=== PATIENT | female | born 1995 | race Hispanic/Latino ===

== ENCOUNTER 2021-05-30 23:21 | Emergency (ER) | payer OTHER ==
--- OUTSIDE RECORDS SUMMARY | 2021-05-30 23:24 | XMS REPORT | Continuity of Care Document ---
:1995 Author Organization [facility] t Address [address] [place] [address] Care Team Providers Name Role Phone Burak Kent Primary Care Physician Fozia CONKLIN C Attending Clinician Payers Payer Name Policy Type Policy Effective Date Expiration Date Sour ce Number [facility] [id number] 2016 [facility] PLAN - 00:00:00 [place] [facility] [place] MANA[place] Branch [place] CHILDRENS [id number] /10/2015-PresentM edicaid Advance Directives Directive Decision Effective Termination Comments Source Date Date Healthcare Agents on N/A Univ ersity FileNameRelationshipHealthcare of [place] Agent Medical RelationshipCommunicationTay [facility] [phone] (Mobile) Problems Condition Condition Condition Status Onset Resolution Last Treating Co mments Source Name Details Category Date Date Treatment Clinician Date Lab test Lab test Disease Active Unive rs positive positive 8-25 ity of for for 00:00: [place] detection detection 00 Medi fabricio of of Branch COVID-19 COVID-19 virus virus UTI in UTI in Disease Active Overview: Univer s 3-24 Formattin i ty of 00:00: g of this [place] 00 note Medical might be Branch different from the original. Pending JAYY , still positive Abnormal Abnormal Disease Active Overview: Un komal maternal maternal 3-22 Formattin ity of glucose glucose 00:00: g of this [place] tolerance, tolerance, 00 note Me dical antepartum antepartum might be Branch different from the original. Failed 1hr gtt, passed 3hr gtt Obesity in Obesity in Disease Active U nivers -19 ity of 00:00: [place] [facility] Supervisio Supervisio Disease Active U nivers n of n of 19 [place] of high-risk [place] [facility] Multiparit Multiparit Disease Active U nivers y y 12-21 ity of 00:00: [place] [facility] Branch Hypothyroi Hypothyroi Disease Active U nivers dism in dism in 12-21 [place] [facility] [place] Breast Breast Disease Active Univers discharge discharge 02-09 ity of 00:00: [place] [facility] Noncomplia Noncomplia Disease Active U nivers nce nce 1-31 ity of w/medicati w/medicati 00:00: [facility] on on Medical treatment treatment Bran ch due to due to intermit intermit use of use of medication medication Allergies, Adverse Reactions, Alerts This patient has no known allergies or adverse reactions. Social History Social Habit Start Date Stop Date Quantity Comments Source ASSERTION 2020-11-28 University 00:00:00 [facility] Exposure to Yes University of SARS-CoV-2 [facility] (event) [facility] Tobacco use and 2021-05-28 2021-05-28 Never used Universit y of exposure 00:00:00 00:00:00 [facility] Alcohol intake 2021-05-28 2021-05-28 Current University 00:00:00 00:00:00 non-drinker of [facility] alcohol Branch (finding) Sex Ass[birth year] At [birth year] Universit y of 00:00:00 00:00:00 [facility] Smoking Status Start Date Stop Date Source Never smoker [facility] Branch Medications Ordered Filled Start Stop Current Ordering Indication Dosage Frequency Signature Comments Components Source Medication Medication Date Date Medication? Clinician (SIG) Name Name albuterol Yes [id number] 2{puff} Inhale 2 Univers 90 8-24 Puffs ity of mcg/actuati 00:00: every 4 [place] as on inhaler 00 (four) Medical hours as Branch needed for Wheezing or Shortness of Breath. benzonatate Yes [id number] 100mg Take 1 Univers 100 mg 8-24 capsule by ity of capsule 00:00: mouth 3 [place] 00 (three) Medical times Branch daily as needed for Cough. pantoprazol Yes [id number] 40mg Take 1 Univers e 7-28 tablet by ity of (PROTONIX) 00:00: mouth [place] 40 mg EC 00 daily. Medical tablet Branch levothyroxi Yes [id number] 250ug Take 2 Univers ne 125 mcg 6-23 tablets by ity of tablet 00:00: mouth [place] 00 every Medical morning. [facility] Immunizations Ordered Filled Immunization Date Status Comments [facility] e Immunization Name Name HPV9 2018-08-16 Completed University of 00:00:00 [facility] 2017-12-22 Completed University of 00:00:00 [facility] 2017-11-12 Completed University 00:00:00 [facility] Procedures This patient has no known procedures. Encounters Start End Encounter Admission Attending Care Care Encounter Source Date/Time Date/Time Type Type Clinicians Facility Department ID 2021-05-29 2021-05-29 Telephone [facility] [id number] Univers 00:00:00 00:00:00 Amelie Sumner CALL BOX WIRER [id number] ity [facility] [id number] [place] as MATERNAL [id number] Med ical & CHILD [address] [place] [address] Results This patient has no known results.
[2021-05-31 00:27] LABS: Urine Blood Negative (Negative); Urine Glucose Negative (Negative); Urine Protein 2+ (Negative); Urine Specific Gravity >=1.030 (1.005-1.030)
[2021-05-31 01:36] LABS: Urine Specific Gravity/Preg >1.030 (1.005-1.030)
--- NOTE | 2021-05-31 02:46 | ER ---
Nurse's Notes [facility] Name: Janette Cartagena Age: 25 yrs Sex: Female : 1995 Arrival Date: 05/30/2021 Time: 23:24 Bed 11 Private MD: Diagnosis: Pneumonia due to SARS-associated coronavirus;UTI/ Urinary tract infection, site not specified Presentation: 05/30 23:50 Chief complaint: Patient states: covid positive since last Thursday, reports feeling em short of breath, denies fever, also reports burning with urination that started today, also reports being 7 months , was cleared by L\T\D and told to come to the ED to get checked out. Coronavirus screen: Client denies travel out of the [place] in the last 14 days. Ebola Screen: Patient negative for fever greater than or equal to 101.5 degrees Fahrenheit, and additional compatible Ebola Virus Disease symptoms Patient denies exposure to infectious person. Patient denies travel to an Ebola-affected area in the 21 days before illness onset. No symptoms or risks identified at this time. Initial Sepsis Screen: Does the patient meet any 2 criteria? HR > 90 bpm. No. Patient's initial sepsis screen is negative. Does the patient have a suspected source of infection? No. Patient's initial sepsis screen is negative. Risk Assessment: Do you want to hurt yourself or someone else? Patient reports no desire to harm self or others. Onset of symptoms was May 30, 2021. 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 - Social history:: Smoking status: Patient denies any tobacco usage or history of. - Family history:: not pertinent. - Hospitalizations: : No recent hospitalization is reported. Screenin:50 Abuse screen: Denies threats or abuse. Nutritional screening: No deficits noted. em Tuberculosis screening: No symptoms or risk factors identified. Fall Risk None identified. Assessment: 23:50 General: Appears in no apparent distress. comfortable, Behavior is calm, cooperative, em appropriate for age. Pain: Denies pain. Neuro: Level of Consciousness is awake, alert, obeys commands, Oriented to person, place, time, situation. Cardiovascular: Capillary refill < 3 seconds Patient's skin is warm and dry. Rhythm is regular. Respiratory: Reports shortness of breath on exertion Airway is patent Respiratory effort is even, unlabored, Respiratory pattern is regular, symmetrical. Derm: Skin is intact, is healthy with good turgor, Skin is pink, warm \T\ dry. Musculoskeletal: Capillary refill < 3 seconds, Range of motion: intact in all extremities. 05/31 02:52 Reassessment: pt signed consent form for the regen-covid infusion. em 03:00 Reassessment: infusion started, instructed to verbalized any chest pain, shortness of em breath or any other symptoms. 03:21 Reassessment: Patient appears in no apparent distress at this time. Patient and/or em family updated on plan of care and expected duration. Pain level reassessed. Patient is alert, oriented x 3, equal unlabored respirations, skin warm/dry/pink. 03:29 Reassessment: pending completion and 1 hour observation before being discharged. em 03:30 Reassessment: Patient appears in no apparent distress at this time. Patient and/or em family updated on plan of care and expected duration. Pain level reassessed. Patient is alert, oriented x 3, equal unlabored respirations, skin warm/dry/pink. 04:05 Reassessment: Patient appears in no apparent distress at this time. Patient and/or em family updated on plan of care and expected duration. Pain level reassessed. Patient is alert, oriented x 3, equal unlabored respirations, skin warm/dry/pink. Vital Signs: 05/30 23:50 BP 110 / 66; Pulse 101; Resp 20; Temp 97.6; Pulse Ox 97% on R/A; Weight 83.91 kg; em Height 5 ft. 0 in. (152.40 cm); 05/31 01:14 Pulse Ox 94% on R/A; em 03:00 BP 103 / 64; Pulse 100; Resp 18; Temp 97.8; Pulse Ox 100% on R/A; em 03:30 BP 100 / 60; Pulse 98; Resp 16; Temp 97.3; Pulse Ox 97% on R/A; em 04:05 BP 102 / 68; Pulse 78; Resp 15; Pulse Ox 96% on R/A; em 05:00 BP 95 / 64; Pulse 98; Resp 16; Temp 97.8; Pulse Ox 99% on R/A; em 05/30 23:50 Body Mass Index 36.13 (83.91 kg, 152.40 cm) em 01:14 after ambulating about 50 yards em ED Course: 05/30 23:24 Patient arrived in ED. mr 23:50 Patient has correct armband on for positive identification. em 23:50 Maintain EMS IV. Dressing intact. Good blood return noted. Site clean \T\ dry. Gauge \T\ em site: 20 LAC. 23:52 Triage completed. em 23:52 Arm band placed on. em 05/31 00:55 Arturo Sweeney MD is Attending Physician. rn 01:02 XRAY Chest (1 view) In Process Unspecified. EDOK 02:50 Marcus Mosher RN is Primary Nurse. em 05:15 No provider procedures requiring assistance completed. IV discontinued, intact, em bleeding controlled, No redness/swelling at site. Pressure dressing applied. Administered Medications: 03:00 Drug: REGEN-COV Dose Pack 120 mg/mL-120 mg/mL (EUA) 600 mg Route: IV; Rate: calculated em rate; Site: left antecubital; 04:06 Follow up: Response: No adverse reaction; IV Status: Completed infusion; IV Intake: em 260ml Intake: 04:06 IV: 260ml; Total: 260ml. em Outcome: 02:46 Discharge ordered by . rn 05:15 Discharged to home via wheelchair. em 05:15 Condition: stable 05:15 Discharge instructions given to patient, Instructed on discharge instructions, follow up and referral plans. medication usage, Demonstrated understanding of instructions, follow-up care, medications, Prescriptions given X 1. 05:15 Patient left the ED. 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 0 in.; BMI: 36.1; em
--- NOTE | 2021-05-31 02:47 | EDPHYS ---
Physician Documentation [facility] Name: Janette Cartagena Age: 25 yrs Sex: Female : 1995 Arrival Date: 05/30/2021 Time: 23:24 Bed 11 Private MD: ED Physician Arturo Sweeney HPI: 05/31 02:36 This 25 yrs old Female presents to ER via Wheelchair with complaints of rn COVID+, Shortness Of Breath. 02:36 The patient has shortness of breath at rest, with light activity. Onset: The rn symptoms/episode began/occurred 8 day(s) ago. Duration: The symptoms are intermittent. The patient's shortness of breath is aggravated by exertion, light activity, is alleviated by rest. Associated signs and symptoms: Pertinent positives: non-productive cough, Pertinent negatives: chest pain, hemoptysis, loss of consciousness, vomiting. Severity of symptoms: At their worst the symptoms were mild in the emergency department the symptoms are unchanged. The patient has not experienced similar symptoms in the past. The patient has been recently seen by a physician:. Patient reports Covid positive, now day 8 of illness, 7 months , reports increased shortness of breath recently. Denies any chronic medical problems. States this is second ER visit for this infection, seen [facility] in [place] and told everything looked okay and discharged.. 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 - Social history:: Smoking status: Patient denies any tobacco usage or history of. - Family history:: not pertinent. - Hospitalizations: : No recent hospitalization is reported. 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 All other systems are negative. Exam: 02:36 Constitutional: This is a well developed, well nourished patient who is awake, alert, rn and in no acute distress. Head/Face: Normocephalic, atraumatic. Eyes: Periorbital areas with no swelling, redness, or edema. ENT: No stridor Cardiovascular: Regular rate and rhythm. No pulse deficits. Respiratory: Mild tachypnea, speaks full sentences. Abdomen/GI: Soft, non-tender Skin: Warm, dry MS/ Extremity: Pulses equal, no cyanosis. Neuro: Awake and alert, GCS 15 Vital Signs: 05/30 23:50 BP 110 / 66; Pulse 101; Resp 20; Temp 97.6; Pulse Ox 97% on R/A; Weight 83.91 kg; em Height 5 ft. 0 in. (152.40 cm); 05/31 01:14 Pulse Ox 94% on R/A; em 03:00 BP 103 / 64; Pulse 100; Resp 18; Temp 97.8; Pulse Ox 100% on R/A; em 03:30 BP 100 / 60; Pulse 98; Resp 16; Temp 97.3; Pulse Ox 97% on R/A; em 04:05 BP 102 / 68; Pulse 78; Resp 15; Pulse Ox 96% on R/A; em 05:00 BP 95 / 64; Pulse 98; Resp 16; Temp 97.8; Pulse Ox 99% on R/A; em 05/30 23:50 Body Mass Index 36.13 (83.91 kg, 152.40 cm) em 01:14 after ambulating about 50 yards em MDM: 00:55 Patient medically screened. rn 02:34 ED course: Long discussion regarding Covid with patient. Does not meet inpatient rn criteria at this point. Oxygen is 97% at rest and only dips to 94% with ambulation around the ER. Chest x-ray with mild pneumonia. Spoke at length with patient regarding Regeneron/monoclonal antibodies for treatment, she was also given a handout and called her mother to discuss. At the end of did patient decides to accept Regeneron/monoclonal antibodies for treatment. We will give infusion and discharge home with return precautions. .. 02:36 Differential diagnosis: pneumonia, Pneumothorax pulmonary edema, Covid. Data reviewed: rn vital signs, nurses notes. 02:45 Data interpreted: orthopedics nurse: rate is 97 beats/min, rhythm is normal sinus rhythm, rn regular, with no ectopy, Interpretation: normal rate, normal rhythm, Pulse oximetry: on room air is 97 %. Interpretation: normal. Test interpretation: by ED physician or midlevel provider: plain radiologic studies, Chest x-ray shows mild bilateral interstitial infiltrate consistent with Covid pneumonia. Counseling: I had a detailed discussion with the patient and/or guardian regarding: the historical points, exam findings, and any diagnostic results supporting the discharge/admit diagnosis, radiology results, the need for outpatient follow up, to return to the emergency department if symptoms worsen or persist or if there are any questions or concerns that arise at home. Response to treatment: the patient's symptoms have mildly improved after treatment, and as a result, I will discharge patient. Special discussion: I discussed with the patient/guardian in detail that at this point there is no indication for admission to the hospital. It is understood, however, that if the symptoms persist or worsen the patient needs to return immediately for re-evaluation. Based on the history and exam findings, there is no indication for further emergent testing or inpatient evaluation. I discussed with the patient/guardian the need to see the OB Gyne specialist for further evaluation of the symptoms. 05/31 00:27 Order name: Urine Dipstick-Ancillary; Complete Time: 00:51 EDMS 05/31 00:31 Order name: Urine --Ancillary (enter results); Complete Time: 01:45 tt3 05/30 23:56 Order name: XRAY Chest (1 view) rn Administered Medications: 03:00 Drug: REGEN-COV Dose Pack 120 mg/mL-120 mg/mL (EUA) 600 mg Route: IV; Rate: calculated em rate; Site: left antecubital; 04:06 Follow up: Response: No adverse reaction; IV Status: Completed infusion; IV Intake: em 260ml Disposition Summary: 05/31/21 02:46 Discharge Ordered Location: Home rn Problem: new rn Symptoms: have improved rn Condition: Stable rn Diagnosis - Pneumonia due to SARS-associated coronavirus rn - UTI/ Urinary tract infection, site not specified rn Followup: rn - With: Private Physician - When: As needed - Reason: Recheck today's complaints, Re-evaluation by your physician Discharge Instructions: - Discharge Summary Sheet rn - and Urinary Tract Infection rn - COVID-19 rn - COVID-19 Frequently Asked Questions rn - 10 Things You Can Do to Manage Your COVID-19 Symptoms at Home - [facility] rn Forms: - Medication Reconciliation Form rn - Thank You Letter rn - 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
[2021-05-31] MEDS ORDERED: NA CHLORIDE 0.9% 250 ML ONE (03:02)
[2021-05-31] MEDS ORDERED: CASIRIVIMAB/IMDEVIMAB 10 ML VIAL ONE (03:03)
[2021-05-31 05:40] VITALS: BP 95/64; TEMP 97.8; O2SAT 99
--- NOTE | 2021-05-31 07:07 | RAD REPORT ---
EXAM DESCRIPTION: RAD - Chest Single View - 05/31/2021 1:02 am CLINICAL HISTORY: COVID +;Cough COMPARISON: No comparisons FINDINGS: Mild to moderate patchy bilateral airspace disease. The heart size is within normal limits .No acute osseous abnormality. No significant pleural effusions or pneumothorax. IMPRESSION: Mild to moderate patchy bilateral airspace disease concerning for multifocal pneumonia i ncluding Covid-19.
== END 2021-05-31 05:15 | disposition home or self-care (01) ==
LOC: ER 23:21
DX: O98.512 Other viral diseases complicating pregnancy, second trimester (principal); U07.1 COVID-19; O99.512 Diseases of the respiratory system complicating pregnancy, second trimester; J12.82 Pneumonia due to coronavirus disease 2019; O23.42 Unspecified infection of urinary tract in pregnancy, second trimester; Z3A.28 28 weeks gestation of pregnancy
CPT/HCPCS: 96365; 81025; 81003; 71045; 99283; J7050

== ENCOUNTER 2022-08-19 08:47 | Emergency (ER) | payer OTHER ==
--- OUTSIDE RECORDS SUMMARY | 2022-08-19 08:52 | XMS REPORT | Continuity of Care Document ---
:1995 Author Organization [facility] t Address [address] [place] [address] Care Team Providers Name Role Phone Amelie Kent Primary Care Physician [phone] AMELIE MARCELO Attending Clinician Unavailable Amelie Kent Attending Clinician [phone] LISA AL Attending Clinician Unavailable Provider, Ang-Rmchp Temp Attending Clinician Unavailable Lisa Jose Attending Clinician SHELL CRANE Attending Clinician Unavailable Camilo Santana MD Attending Clinician Rodo Kerns Attending Clinician Risk, Ync-Hfnuh-Zx/High Attending Clinician Unavailable Barbara Camacho Attending Clinician BARBARA STRICKLAND Attending Clinician Unavailable Risk, Pea-Rmchp Provider/High Attending Clinician Unavailabl e Ultrasound, Ang-Mfm Attending Clinician Unavailable Adam Kramer MD Attending Clinician [phone] Lab, Ang-Rmchp Attending Clinician Unavailable Juan Yi MD Attending Clinician UMU KWONG Attending Clinician Unavailable Nichole Al DO Attending Clinician Doctor Unassigned, [place] Attending Clinician Unavailable Christine Carvalho RN Attending Clinician Unavailable 1, Pea-Mfm Us Room Attending Clinician Unavailable Varghese ARIZMENDI, Umu Attending Clinician Wilfred ARIZMENDI, Nasra Long Attending Clinician Lab, [facility] Attending Clinician Unavailable Reny MSN, Rachelle A Attending Clinician Vidal ARIZMENDI, Heriberto Cobb Attending Clinician Faculty, Arnulfo Hernandez [facility] Attending Clinician Unavailable Tate Crews MD Attending Clinician 2, Adc Lab Attending Clinician Unavailable SHELL CRANE Admitting Clinician Unavailable Payers Payer Name Policy Type Policy Number Effective Date Expiration Date [employer] [id number] 2016 HEALTH 00:00:00 Problems Condition Condition Condition Status Onset Resolution Last Treating Co mments Source Name Details Category Date Date Treatment Clinician Date Other Other Disease Active 2020-10 Univers general general 2-29 [place] and advice 00 De dical for [facility] contracept contracept william william management management Refuses Refuses Disease Active 2020-10 Univers tetanus, tetanus, 0-21 ity of diphtheria [place]htheria [place] , and , and 00 Medical acellular acellular Bran ch pertussis pertussis (Tdap) (Tdap) vaccinatio vaccinatio n n Hypothyroi Hypothyroi Disease Active U nivers dism in dism in 3-19 ity of 00:00: [facility] manish [address] [place] [address] Obesity Obesity Disease Active Univers (BMI (BMI 3-19 ity of 30-39.9) 30-39.9) 00:00: [address] Allergies, Adverse Reactions, Alerts This patient has no known allergies or adverse reactions. Social History Social Habit Start Date Stop Date Quantity Comments Source Exposure to Not sure [facility] SARS-CoV-2 [facility] (event) Branch Alcohol intake 2021-10-02 2021-10-02 Current University 00:00:00 00:00:00 non-drinker of [facility] alcohol [place] (finding) Tobacco use and 2017-03-30 2017-03-30 Never used Universit y of exposure 00:00:00 00:00:00 [facility] Sex Assigned At [birth year] Universit y of 00:00:00 00:00:00 [facility] Smoking Status Start Date Stop Date Source Never smoker [facility] Medications Ordered Filled Start Stop Current Ordering Indication Dosage Frequency Signature Comments Components Source Medication Medication Date Date Medication? Clinician (SIG) Name Name norman 2020-10 Yes [id number] Apply to [facility] 11-06 area(s) 2 ity of acetonide 00:00: (two) [place] 0.1 % 00 times Medical ointment daily. Branch 2020-10- No [id number] 1{tbl} Take 1 Univers [id number] 10-16 tablet by it y of fum-folic 00:00: 00:00 mouth [place] () 00 :00 daily. Medical 27 mg iron- Branch 1 mg Tab docusate 2020-10- No [id number] 240mg Take 1 Univers calcium 240 10-16 capsule by i ty of mg capsule 00:00: 00:00 mouth once [place] 00 :00 daily as Medical needed for Branch Constipati on. ferrous 2020-10- No [id number] 325mg Take 1 U nivers sulfate 325 10-16 tablet by it y of mg (65 mg 00:00: 00:00 [place] iron[place] 00 :00 (two) Medical tablet times Branch daily. ibuprofen 2020-10- No [id number] 600mg Take 1 Univers 600 mg 10-16 tablet by ity of tablet 00:00: 00:00 mouth [place] 00 :00 every 6 Medical (six) Branch hours as needed (Pain). Take with food or milk. pantoprazol 2020- No [id number] 40mg Take 1 Univers e 7-28 12-29 tablet by ity of (PROTONIX) 00:00: 00:00 mouth [place] 40 mg EC 00 :00 daily. Medical tablet Branch levothyroxi Yes [id number] 250ug Take 2 Univers ne 125 mcg 6-23 tablets by ity of tablet 00:00: mouth [place] 00 every Medical morning. Branch Immunizations Ordered Filled Immunization Date Status Comments Sour e Immunization Name Name HPV9 2018-08-16 Completed [facility] 00:00:[place] [address] 2017-12-22 Completed [facility] 00:00:00 [place] [address] 2017-11-12 Completed [facility] 00:00:00 [facility] Vital Signs Vital Name Observation Time Observation Value Comments Source Systolic blood 2021-10-02 16:40:00 108 mm[Hg] Univer sity of pressure [facility] Diastolic blood 2021-10-02 16:40:00 74 mm[Hg] Unive rsity of pressure [facility] Heart rate 2021-10-02 16:40:00 68 /min [facility] Body temperature 2021-10-02 16:40:00 36.17 Krissy [facility] Respiratory rate 2021-10-02 16:40:00 20 /min [facility] Body height 2021-10-02 16:40:00 152.4 cm [facility] Body weight 2021-10-02 16:40:00 87.363 kg [facility] BMI 2021-10-02 16:40:00 37.61 kg/m2 [facility] Procedures This patient has no known procedures. Encounters Start End Encounter Admission Attending Care Care Encounter Source Date/Time Date/Time Type Type Clinicians Facility Department ID 2021-08-[address] [facility] [id number] Univers 17:42:48 [facility] 2021-10-02 2021-10-02 Outpatient R FOZIA [facility] [id number] Univers 10:30:00 11:19:30 AMELIE gonzalez f [facility] 2021-10-02 2021-10-02 Office Fozia [facility] 1.2.033.112 [id number] Univers 10:30:00 11:19:30 Visit Amelie Sumner [facility].13.10 [facility] 4.2.7.2.686 Aramis as MATERNAL [id number] Med ical & CHILD [address] [place] [address] 2021-09-05 2021-09-05 Outpatient Rafael AL [facility] [id number] Univers 13:45:00 14:29:29 LISA hamilton [facility] 2021-09-05 2021-09-05 Routine Provider, [facility] .2.840.114 [id number] Univers 13:43:40 14:29:29 Lisa Al RIVER DRIVER 350.1.13.10 ity of Visit REGIONAL 4.2.7.2.686 Aramis as MATERNAL [id number] [facility] ical & CHILD [address] [place] [address] 2021-08-19 2021-08-19 Outpatient P [facility] [id number] Univers 11:30:00 11:30:00 ity of [facility] 2021-08-14 2021-08-[address] [facility] EMMA [id number] Univers 09:34:00 15:31:00 [facility] 2021-08-14 2021-08-16 [facility] LbPAYAL 1.2.840.114 [id number] Univers 09:34:00 15:31:00 Encounter Shell CUATE 350.1.13.10 ity of [facility] 4.2.7.2.686 Aramis as [id number] [facility] [address] 2021-08-14 2021-08-15 Anesthesia SantanaCamilo altman PAYAL 1.2.840.1 [id number] Univers 22:35:00 08:10:00 Event Rodo Samuels CUATE 350.1.13.10 ity of [facility] 4.2.7.2.686 Aramis as [id number] [facility] [address] 2021-08-08 2021-08-08 Routine Risk, Qux-Gzfsq-Di/High [facility] 1. 2.840.114 [id number] Univers 13:17:44 14:48:40 Barbara Strickland RIVER DRIVER 350.1.13.10 ity of Visit REGIONAL 4.2.7.2.686 Aramis as MATERNAL [phone] [facility] ical & CHILD [address] [place] [address] 2021-08-08 2021-08-08 Outpatient R MARCO [facility] [id number] Univers 13:15:00 14:48:40 BARBARA ity [facility] 2021-08-02 2021-08-02 Routine Risk, Pea-Rmchp Provider/High [facility] 1.2.840.114 [id number] Univers 13:14:26 13:58:22 Marco A Barbara L RIVER DRIVER 350.1.13.10 ity of Visit REGIONAL 4.2.7.2.686 Aramis as MATERNAL [id number] Med ical & CHILD [facility] 2021-08-02 2021-08-02 Outpatient R MARCO A [facility] [id number] Univers 13:00:00 13:58:22 BARBARA hamilton [facility] 2021-07-26 2021-07-26 [facility] 1.2.840.114 [id number] Univers 00:00:00 00:00:00 Lisa Avalos RIVER DRIVER 350.1.13.10 it y of REGIONAL 4.2.7.2.686 Aramis as MATERNAL [phone] [facility] [address] [place] [address] 2021-07-25 2021-07-25 [facility]ine [facility] 1.2.056.681 [id number] Univers 08:41:57 09:11:37 Lisa Avalos RIVER DRIVER 350.1.13.10 i ty of Visit REGIONAL 4.2.7.2.686 Aramis as MATERNAL [id number] [facility] & CHILD [address] [place] [address] 2021-07-25 2021-07-25 Outpatient R MIKAELA [facility] [id number] Univers 09:00:00 09:00:00 LISA [facility] 2021-07-23 2021-07-23 Specialty Food Products Supervisor Ultrasound, [facility] 1.2 .840.114 [id number] Univers 11:31:17 12:01:17 Visit Adam Kramer Soledad RIVER DRIVER 350.1. 13.10 ity of REGIONAL 4.2.7.2.686 Aramis as MATERNAL [id number] [facility] [address] [place] [address] 2021-07-23 2021-07-23 Outpatient P [facility] [id number] Univers 11:30:00 11:30:00 ity [facility] 2021-07-19 2021-07-19 Routine [facility] 1.2.632.024 [id number] Univers 10:54:44 11:09:44 Lisa Bailey RIVER DRIVER 350.1.13.10 i ty of Visit [facility] 4.2.7.2.686 Aramis as MATERNAL [id number] [facility] & [address] 2021-07-19 2021-07-19 Outpatient Rafael AL [facility] [id number] Univers 11:00:00 11:00:00 LISA hamilton [facility] 2021-07-10 2021-07-10 Outpatient R FOZIA [facility] [id number] Univers 10:00:00 10:00:00 AMELIE hamilton o [facility] 2021-06-26 2021-06-26 Outpatient R FOZIA [facility] [id number] Univers 15:45:00 15:45:00 AMELIE hamilton o [facility] 2021-06-26 2021-06-26 [facility] [id number] Univers 13:00:00 13:00:00 AMELIE alfonso o emmanuelle [facility] 2021-06-25 2021-06-25 Telephone [facility] 1.2.840.114 [id number] Univers 00:00:00 00:00:00 Amelie Sumner RIVER DRIVER 350.1.13.10 ity of [facility] 4.2.7.2.686 Aramis as MATERNAL [phone] [address] 2021-06-14 2021-06-14 Specialty Food Products Supervisor Lab, [facility] 1.2.840. 114 [id number] Univers 08:01:57 08:18:19 Visit Amelie Marcelo RIVER DRIVER 350.1.13. 10 ity of [facility] 4.2.7.2.686 Aramis as MATERNAL [id number] [facility] & [address] 2021-06-14 2021-06-14 Specialty Food Products Supervisor Lab, [facility] 1.2.840. 114 [id number] Univers 08:01:57 08:18:19 Visit Amelie Marcelo RIVER DRIVER 350.1.13. 10 ity of REGIONAL 4.2.7.2.686 Aramis as MATERNAL [id number] [facility] ical & CHILD [address] [place] [address] 2021-06-14 2021-06-14 Outpatient R [facility] [id number] Univers 08:00:00 08:00:00 ity of [facility] 2021-06-12 2021-06-12 Abstract Fozia [facility] 1.2.840.114 [id number] Univers 00:00:00 00:00:00 Amelie C RIVER DRIVER 350.1.13.10 ity of REGIONAL 4.2.7.2.686 Aramis as MATERNAL [id number] [facility] ical & CHILD [address] [place] [address] 2021-06-12 2021-06-12 Abstract Fozia [facility] 1.2.840.114 [id number] Univers 00:00:00 00:00:00 Amelie C RIVER DRIVER 350.1.13.10 ity of REGIONAL 4.2.7.2.686 Aramis as MATERNAL [id number] [facility] ical & CHILD [address] [place] [address] 2021-06-11 2021-06-11 Office [facility] 1.2.955.070 [id number] Univers 15:42:11 16:50:01 Visit Amelie C RIVER DRIVER 350.1.13.10 ity of REGIONAL 4.2.7.2.686 Aramis as MATERNAL [id number] [facility] & CHILD [address] [place] [address] 2021-06-11 2021-06-11 Office [facility] [id number] [id number] Univers 15:42:11 16:50:01 Visit Amelie C RIVER DRIVER 350.1.13.10 ity of REGIONAL 4.2.7.2.686 Aramis as MATERNAL [id number] [facility] ical & CHILD [address] [place] [address] 2021-06-11 2021-06-11 Outpatient R FOZIA [facility] [id number] Univers 16:00:00 16:00:00 AMELIE ity o f [facility] 2021-06-11 2021-06-11 Specialty Food Products Supervisor Ultrasound, [facility] 1.2 .840.114 [id number] Univers 15:15:20 15:40:12 Visit Juan Yi RIVER DRIVER 350.1.13.10 ity of [facility] 4.2.7.2.686 Aramis as MATERNAL [phone] [facility] [address] [place] [address] 2021-06-11 2021-06-11 Specialty Food Products Supervisor Ultrasound, [facility] 1.2 .840.114 [id number] Univers 15:15:20 15:40:12 Visit Juan Yi RIVER DRIVER 350.1.13.10 ity of REGIONAL 4.2.7.2.686 Aramis as MATERNAL [id number] [facility] & [address] 2021-05-29 2021-05-29 Outpatient P [facility] [id number] Univers 09:00:00 09:00:00 [facility] 2021-05-29 2021-05-29 Telephone [facility] 1.2.840.114 [id number] Univers 00:00:00 00:00:00 Amelie Sumner RIVER DRIVER 350.1.13.10 ity of [facility] 4.2.7.2.686 Aramis as MATERNAL [id number] [facility] & [address] 2021-05-29 2021-05-29 Telephone [facility] 1.2.840.114 [id number] Univers 00:00:00 00:00:00 Amelie Sumner RIVER DRIVER 350.1.13.10 ity of [facility] 4.2.7.2.686 Aramis as MATERNAL [id number] [facility] [address] [place] [address] 2021-05-28 2021-05-28 Outpatient R VARGHESE [facility] [id number] Univers 15:00:00 15:00:00 [facility] 2021-05-28 2021-05-28 Emergency [facility] 1.2.840.114 [id number] Univers 11:53:00 13:04:00 Nichole Juárez 350.1.13.10 ity [facility] 4.2.7.2.686 [place] [id number] [facility] [address] 2021-05-28 2021-05-28 Emergency Mikaela, [facility] 1.2.840.114 [id number] Univers 11:53:00 13:04:00 Nichole Juárez 350.1.13.10 ity of [place] 4.2.7.2.686 [facility] [id number] [facility] [address] 2021-05-28 2021-05-28 Orders Doctor PAYAL 1.2.840.114 [id number] Univers 00:00:00 00:00:00 Only Unassigned, CUATE 350.1.13.10 ity of [place] [facility] 4.2.7.2.686 Aramis as [phone] [address] 2021-05-28 2021-05-28 Nurse PAYAL Carvalho 1.2.840.114 [id number] Univers 00:00:00 00:00:00 Triage Christine Zach MCDUFFIEY 350.1.13.10 it y of HOSPITAL 4.2.7.2.686 Aramis as [id number] [facility] [address] 2021-05-28 2021-05-28 Orders Doctor PAYAL 1.2.840.114 [id number] Univers 00:00:00 00:00:00 Only Unassigned, CUATE 350.1.13.10 ity of [place] [facility] 4.2.7.2.686 Aramis as [id number] [address] 2021-05-28 2021-05-28 PAYAL Chavira 1.2.840.114 [id number] Univers 00:00:00 00:00:00 Triage Christine T CUATE 350.1.13.10 it y of HOSPITAL 4.2.7.2.686 Aramis as [id number] [facility] [address] 2021-05-22 2021-05-22 Telephone [facility], [facility] 1.2.667.029 [id number] Univers 00:00:00 00:00:00 Ang-Rmchp-N RIVER DRIVER 350.1.13.10 ity of p/High REGIONAL 4.2.7.2.686 Aramis as MATERNAL [id number] [facility] ical & CHILD [address] [place] [address] 2021-05-15 2021-05-15 Outpatient R [facility] [id number] Univers 08:00:00 08:00:00 ity of [facility] 2021-05-01 2021-05-01 Routine Risk, Aik-Yijyh-Dy/High [facility] 1. 2.840.114 [id number] Univers 10:00:17 11:16:35 StricklandBarbara Sainz RIVER DRIVER 350.1.13.10 ity of Visit REGIONAL 4.2.7.2.686 Aramis as MATERNAL [id number] Med ical & CHILD 107 [place] [facility] [place] 2021-05-01 2021-05-01 Routine Risk, Bpy-Schjs-On/High [facility] 1. 2.840.114 [id number] Univers 10:00:17 11:16:35 Barbara Strickland L RIVER DRIVER 350.1.13.10 ity of Visit REGIONAL 4.2.7.2.686 Aramis as MATERNAL [phone] [facility] [address] [place] [address] 2021-05-01 2021-05-01 Outpatient R [facility] [id number] Univers 10:00:00 10:00:00 ity of [facility] 2021-05-01 2021-05-01 Abstract Fozia, [facility] 1.2.840.114 [id number] Univers 00:00:00 00:00:00 Amelie Sumner RIVER DRIVER 350.1.13.10 ity of REGIONAL 4.2.7.2.686 Aramis as MATERNAL [phone] [facility] ical & CHILD [address] [place] [address] 2021-04-30 2021-04-30 Specialty Food Products Supervisor 1, [place]-Lasham Room [facility] 1.2. 840.114 [id number] Univers 09:16:39 10:11:40 Visit Juan Yi RIVER DRIVER 350.1.13.10 ity of REGIONAL 4.2.7.2.686 Aramis as MATERNAL [phone] [facility] ical & CHILD [address] [facility] 2021-04-30 2021-04-30 Outpatient P [facility] [id number] Univers 09:15:00 09:15:00 ity [facility] 2021-04-24 2021-04-24 Routine Akinsipe, [facility] 1.2.729.782 [id number] Univers 10:59:03 11:40:06 Amelie Sumner RIVER DRIVER 350.1.13.10 ity of Visit REGIONAL 4.2.7.2.686 Aramis as MATERNAL [id number] [facility] [address] [place] [address] 2021-04-24 2021-04-24 Outpatient R FOZIA, [facility] [id number] Univers 10:45:00 10:45:00 AMELIE ity o f [facility] 2021-04-17 2021-04-17 Outpatient R [facility] [id number] Univers 11:45:00 11:45:00 ity [facility] 2021-04-01 2021-04-01 Outpatient P [facility] [id number] Univers 13:00:00 13:00:00 [facility] 2021-03-28 2021-03-28 Routine Risk, Vxi-Wreme-Lr/High [facility] 1. 2.840.114 [id number] Univers 15:18:18 16:30:10 Barbara Strickland RIVER DRIVER 350.1.13.10 ity of Visit REGIONAL 4.2.7.2.686 Aramis as MATERNAL [id number] [facility] & CHILD [address] [place] [address] 2021-03-28 2021-03-28 Outpatient R [facility] [id number] Univers 15:30:00 15:30:00 ity [facility] 2021-03-28 2021-03-28 [facility] 1.2.840.114 [id number] Univers 00:00:00 00:00:00 Amelie Sumner RIVER DRIVER 350.1.13.10 ity of REGIONAL 4.2.7.2.686 Aramis as MATERNAL [id number] [facility] & CHILD [address] [place] [address] 2021-03-27 2021-03-27 Office Kwong, [facility] 1.2.840.114 [id number] Univers 10:55:16 12:03:38 Visit [facility] 350.1.13.10 i ty of [place] 4.2.7.2.686 [place] Profess[place] [phone] De dical nal [address] [place] [address] 2021-03-27 2021-03-27 Outpatient R VARGHESE [facility] [id number] Univers 11:00:00 11:00:00 [place] [facility] [facility] 2021-03-26 2021-03-26 Telephone [facility] 1.2.840.114 [id number] Univers 00:00:00 00:00:00 Amelie C RIVER DRIVER 350.1.13.10 ity of [facility] 4.2.7.2.686 Aramis as MATERNAL [id number] [facility] & [address] 2021-03-25 2021-03-25 Routine [facility] 1.2.241.562 [id number] Univers 15:43:37 16:22:05 Amelie C RIVER DRIVER 350.1.13.10 ity of Visit [facility] 4.2.7.2.686 Aramis as MATERNAL [id number] [facility] & CHILD [address] [place] [address] 2021-03-25 2021-03-25 [facility] [id number] Univers 15:45:00 15:45:00 AMELIE ity o [facility] 2021-03-20 2021-03-20 [facility] [id number] Univers 11:00:00 11:00:00 AMELIE ity o f [facility] 2021-02-25 2021-02-25 Telephone [facility] 1.2.840.114 [id number] Univers 00:00:00 00:00:00 Amelie C RIVER DRIVER 350.1.13.10 ity of [facility] 4.2.7.2.686 Aramis as MATERNAL [id number] [facility] & [address] 2021-02-20 2021-02-20 Routine [facility] 1.2.606.669 [id number] Univers 09:11:06 09:54:25 Amelie C RIVER DRIVER 350.1.13.10 ity of Visit REGIONAL 4.2.7.2.686 Aramis as MATERNAL [id number] [facility] & CHILD [address] [place] [address] 2021-02-20 2021-02-20 Outpatient R FOZIA [facility] [id number] Univers 09:00:00 09:00:00 AMELIE hamilton o f [facility] 2021-02-15 2021-02-15 Abstract Cataneida [facility] 1.2.840.114 [id number] Univers 00:00:00 00:00:00 Amelie Sumner RIVER DRIVER 350.1.13.10 ity of [facility] 4.2.7.2.686 Aramis as MATERNAL [id number] [facility] & CHILD [address] [place] [address] 2021-02-14 2021-02-14 Specialty Food Products Supervisor 1, Jasonkerwin Room [facility] 1.2. 840.114 [id number] Univers 13:28:11 14:13:11 Visit Nasra Hardin RIVER DRIVER 350.1.13.10 ity of [facility] 4.2.7.2.686 Aramis as MATERNAL [id number] [facility] ical & CHILD [address] [facility] 2021-02-14 2021-02-14 Specialty Food Products Supervisor [facility] 1.2.840. 114 [id number] Univers 13:28:49 14:03:13 Visit Rachelle Oglesby RIVER DRIVER 350.1.13.10 ity of REGIONAL 4.2.7.2.686 Aramis as MATERNAL [id number] [facility] ical & CHILD [facility] 2021-02-14 2021-02-14 Outpatient P [facility] [id number] Univers 13:30:00 13:30:00 ity of [facility] 2021-01-26 2021-01-26 Telephone Heriberto Drake 1.2.840.114 [id number] Univers 00:00:00 00:00:00 Jordyn CUELLO 350.1.13.10 i ty of [facility] 4.2.7.2.686 Aramis as [id number] [address] 2021-01-23 2021-01-23 Telephone [facility] 1.2.840.114 [id number] Univers 00:00:00 00:00:00 Amelie C RIVER DRIVER 350.1.13.10 ity of REGIONAL 4.2.7.2.686 Aramis as MATERNAL [id number] [facility] [address] [place] [address] 2021-01-22 2021-01-22 Routine [facility] 1.2.711.664 [id number] Univers 12:54:41 13:42:54 Amelie C RIVER DRIVER 350.1.13.10 ity of Visit REGIONAL 4.2.7.2.686 Aramis as MATERNAL [id number] [facility] & CHILD [address] [place] [address] 2021-01-22 2021-01-22 [facility] [id number] Univers 13:00:00 13:00:00 AMELIE ity o f [facility] 2021-01-21 2021-01-21 [employer] [facility], [facility] [id number] Univers 07:44:17 10:22:11 ne Visit Tate Crews RIVER DRIVER [id number] ity of REGIONAL [id number] Aramis as MATERNAL [id number] [facility] & [address] 2021-01-21 2021-01-21 Outpatient R [facility] [facility] [id number] Univers 10:00:00 10:00:00 ity of [facility] 2021-01-18 2021-01-18 Telephone [facility] [id number] Univers 00:00:00 00:00:00 Aemlie C RIVER DRIVER [id number] ity of REGIONAL [id number] Aramis [address]NAL [phone] [facility] & CHILD [address] [place] [address] 2021-01-11 2021-01-11 Abstract [facility] 1.2.840.114 [id number] Univers 00:00:00 00:00:00 Amelie C RIVER DRIVER [id number] ity of REGIONAL [id number] Aramis as MATERNAL [id number] [facility] CHILD [address] [place] [address] 2021-01-10 2021-01-10 Specialty Food Products Supervisor Davidson Reza [facility] 1.2. [id number] [facility] 15:34:19 16:01:23 Visit Nasra Hardin RIVER DRIVER [id number] ity of REGIONAL [id number] Aramis as MATERNAL [phone] [facility] ical & CHILD [address] [facility] 2021-01-10 2021-01-10 Outpatient P [facility] [id number] Univers 15:30:00 15:30:00 ity of [facility] 2020-12-28 2020-12-28 Specialty Food Products Supervisor Lab, [facility] 1.2.840. 114 [id number] Univers 07:59:57 08:19:00 Visit Amelie Marcelo RIVER DRIVER 350.1.13. 10 ity of [facility] [id number] Aramis as MATERNAL [id number] [facility] & CHILD [address] [place] [address] 2020-12-28 2020-12-28 Outpatient R FOZIA [facility] [id number] Univers 08:00:00 08:00:00 AMELIE hamilton o f [facility] 2020-12-26 2020-12-26 Telephone [facility] 1.2.840.114 [id number] Univers 00:00:00 00:00:00 Amelie Sumner RIVER DRIVER [id number] ity of REGIONAL [id number] Aramis [address] MAT[address]NAL [phone] 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 [id number] Univers 09:30:00 09:30:00 ity of [facility] 2020 2020 Office [facility] 1.2.840.114 [id number] Univers 13:14:36 13:56:24 Visit [facility] [id number] i ty of [id number] [phone] De dical nal [address] [facility] 2020 2020 Outpatient R VARGHESE [facility] [id number] Univers 11:30:00 11:30:00 [place] ity 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 [id number] Univers 08:00:00 08:00:00 ity of [facility] 2020-06-26 2020-06-26 Office [facility] 1.2.840.114 [id number] Univers 08:30:53 08:58:41 Visit [place] [place] 350.1.13.10 i ty of [place].2.[place] [phone] [address] 2020-06-26 2020-06-26 Outpatient R VARGHESE [facility] [id number] Univers 08:30:00 08:30:00 [facility] 2019-12-21 2019-12-21 Office [facility] 1.2.840.114 [id number] Univers 10:32:48 11:01:37 Visit [facility] [place] 350.1.13.10 i ty of [place] [id number] [phone] [address] 2019-12-21 2019-12-21 Outpatient R VARGHESE [facility] [id number] Univers 10:30:00 10:30:00 [place] ity [facility] 2019-12-21 2019-12-21 Orders Doctor MOE 1.2.840.114 [id number] Univers 00:00:00 00:00:00 Only Unassigned, CUATE [id number] ity of [place] [facility] [id number] Aramis as [phone] [address] 2019-12-21 2019-12-21 Letter Doctor PAYAL 1.2.840.114 [id number] Univers 00:00:00 00:00:00 (Out) Unassigned, CUATE 350.1.13.10 ity of [place] [facility] 4.2.7.2.686 Aramis as [phone] [facility] 044 Branch Results This patient has no known results.
--- NOTE | 2022-08-19 09:24 | RAD REPORT ---
EXAM DESCRIPTION: RAD - Chest Pa And Lat (2 Views) - 08/19/2022 9:13 am CLINICAL HISTORY: COUGH Chest pain. COMPARISON: Chest Single View dated 05/31/2021 FINDINGS: Moderate opacity is seen in the right lung base posteriorly likely representing a developi ng pneumonia. The lungs are otherwise clear. The heart is normal in size. No displaced fractures. IMPRESSION: Posterior right lung base pneumonia developing.
--- NOTE | 2022-08-19 10:05 | ER ---
Nurse's Notes [facility] Name: Janette Cartagena Age: 26 yrs Sex: Female : 1995 Arrival Date: 08/19/2022 Time: 08:52 Bed IW2 Private MD: Diagnosis: Other pneumonia, unspecified organism Presentation: 08/19 09:02 Chief complaint: Patient states: Cough x1 week, shortness of breath x2 days. jl7 Coronavirus screen: Vaccine status: Patient reports being unvaccinated. At this time, the client does not indicate any symptoms associated with coronavirus-19. Ebola Screen: No symptoms or risks identified at this time. Initial Sepsis Screen: Does the patient meet any 2 criteria? No. Patient's initial sepsis screen is negative. Does the patient have a suspected source of infection? No. Patient's initial sepsis screen is negative. Risk Assessment: Do you want to hurt yourself or someone else? Patient reports no desire to harm self or others. Onset of symptoms was August 09, 2022. 09:02 Method Of Arrival: Ambulatory jl7 09:02 Acuity: MARY 4 jl7 Triage Assessment: 09:04 General: Appears in no apparent distress. uncomfortable, Behavior is calm, cooperative, jl7 appropriate for age. Pain: Complains of pain in all over. Respiratory: Reports shortness of breath cough that is Onset: The symptoms/episode began/occurred gradually, the patient has mild shortness of breath. 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 - Social history:: Smoking status: Patient denies any tobacco usage or history of. Screenin:30 Abuse screen: Denies threats or abuse. Denies injuries from another. Nutritional jl7 screening: No deficits noted. Tuberculosis screening: No symptoms or risk factors identified. Fall Risk None identified. Assessment: 09:00 Reassessment: EVGENY [place] in triage assessing pt. jl7 Vital Signs: 09:02 BP 134 / 90; Pulse 98; Resp 19; Temp 98.1; Pulse Ox 96% ; Weight 86.18 kg; Height 5 ft. jl7 0 in. (152.40 cm); Pain 4/10; 10:21 BP 132 / 89; Pulse 95; Resp 15; Temp 97.7; Pulse Ox 97% ; jl7 09:02 Body Mass Index 37.11 (86.18 kg, 152.40 cm) jl7 ED Course: 08:52 Patient arrived in ED. rg4 08:56 Harjinder Aiken PA is PHCP. cp 08:56 Arturo Sweeney MD is Attending Physician. cp 09:00 Patient has correct armband on for positive identification. jl7 09:04 Triage completed. jl7 09:04 Arm band placed on right wrist. jl7 09:14 XRAY Chest Pa And Lat (2 Views) In Process Unspecified. EDMS 09:30 No provider procedures requiring assistance completed. Patient did not have IV access jl7 during this emergency room visit. 10:03 Keaton Hicks, JEANETTE is Primary Nurse. jl7 Administered Medications: No medications were administered Medication: 09:00 VIS not applicable for this client. jl7 Outcome: 10:04 Discharge ordered by . cp 10:21 Discharged to home ambulatory. jl7 10:21 Condition: stable 10:21 Discharge instructions given to patient, Instructed on discharge instructions, follow up and referral plans. medication usage, Demonstrated understanding of instructions, follow-up care, Prescriptions given X 5 10:22 Patient left the ED. jl7 Signatures: Dispatcher [employer] EDAR Harjinder Aiken PA PA cp Garcia, Rubi rg4 Keaton Hicks, RN RN jl7
--- NOTE | 2022-08-19 10:05 | EDPHYS ---
Physician Documentation [facility] Name: Janette Cartagena Age: 26 yrs Sex: Female : 1995 Arrival Date: 08/19/2022 Time: 08:52 Bed IW2 Private MD: ED Physician Arturo Sweeney HPI: 08/19 09:03 This 26 yrs old Female presents to ER via Unassigned with complaints of cp Shortness Of Breath, Cough. 09:03 The patient or guardian reports cough, with productive sputum. Onset: The cp symptoms/episode began/occurred 10 day(s) ago. Associated signs and symptoms: Pertinent positives: sore throat, shortness of breath, Pertinent negatives: chest pain, diarrhea, fever, vomiting. Severity of symptoms: in the emergency department the symptoms are unchanged despite home interventions. 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 - Social history:: Smoking status: Patient denies any tobacco usage or history of. ROS: 09:05 Eyes: Negative for injury, pain, redness, and discharge. cp 09:05 Constitutional: Negative for body aches, chills, fever, poor PO intake. 09:05 ENT: Positive for sore throat, Negative for drainage from ear(s), ear pain, difficulty swallowing, difficulty handling secretions. 09:05 Cardiovascular: Negative for chest pain. 09:05 Respiratory: Positive for cough, "sounds productive", shortness of breath, Negative for wheezing. 09:05 Abdomen/GI: Negative for abdominal pain, nausea, vomiting, and diarrhea. 09:05 Skin: Negative for rash. 09:05 Neuro: Negative for altered mental status, headache. 09:05 All other systems are negative. Exam: 09:07 Head/Face: Normocephalic, atraumatic. cp 09:07 Constitutional: The patient appears in no acute distress, alert, awake, non-toxic, well developed, well nourished. 09:07 Eyes: Periorbital structures: appear normal, Conjunctiva: normal, no exudate, no cp injection, Sclera: no appreciated abnormality, Lids and lashes: appear normal, bilaterally. 09:07 ENT: External ear(s): are unremarkable, Nose: is normal, Mouth: Lips: moist, Oral mucosa: pink and intact, moist, Posterior pharynx: Airway: no evidence of obstruction, patent. 09:07 Neck: ROM/movement: is normal, is supple, without pain, no range of motions cp limitations, no meningismus. 09:07 Chest/axilla: Inspection: normal. 09:07 Cardiovascular: Rate: normal, Rhythm: regular, Edema: is not appreciated. 09:07 Respiratory: the patient does not display signs of respiratory distress, Respirations: normal, no use of accessory muscles, no retractions, labored breathing, is not present, Breath sounds: bronchial sounds, that are mild, are heard diffusely, stridor, is not appreciated, + upper airway congestion. wheezing: is not appreciated. 09:07 Abdomen/GI: Exam negative for discomfort, distension, guarding, Inspection: abdomen appears normal. 09:07 Back: pain, is absent, ROM is normal. 09:07 Neuro: Orientation: to person, place \\T\\ time. Mentation: is normal, Motor: moves all fours, strength is normal, Sensation: is normal. Vital Signs: 09:02 BP 134 / 90; Pulse 98; Resp 19; Temp 98.1; Pulse Ox 96% ; Weight 86.18 kg; Height 5 ft. jl7 0 in. (152.40 cm); Pain 4/10; 10:21 BP 132 / 89; Pulse 95; Resp 15; Temp 97.7; Pulse Ox 97% ; jl7 09:02 Body Mass Index 37.11 (86.18 kg, 152.40 cm) jl7 MDM: 09:07 Patient medically screened. 10:04 Data reviewed: vital signs, nurses notes, lab test result(s), radiologic studies, plain cp films, and as a result, I will discharge patient. 10:04 Test interpretation: by ED physician or midlevel provider: plain radiologic studies. cp 08/19 09:01 Order name: Strep cp 08/19 10:03 Order name: Throat Culture EDMO 08/19 09:01 Order name: XRAY Chest Pa And Lat (2 Views); Complete Time: 09:33 cp 08/19 09:33 Interpretation: Report reviewed. cp Administered Medications: No medications were administered Disposition: 11:12 Co-signature as Attending Physician, Arturo Sweeney MD. rn Disposition Summary: 08/19/22 10:04 Discharge Ordered Location: Home cp Problem: new cp Symptoms: are unchanged cp Condition: Stable cp Diagnosis - Other pneumonia, unspecified organism cp Followup: cp - With: Private Physician - When: 2 - 3 days - Reason: Recheck today's complaints Discharge Instructions: - Discharge Summary Sheet cp - Community-Acquired Pneumonia, Adult cp Forms: - Medication Reconciliation Form cp - Thank You Letter cp - Antibiotic Education cp - Prescription Opioid Use cp Prescriptions: - Augmentin 875-125 mg Oral Tablet - take 1 tablet by ORAL route every 12 hours for 10 days; 20 tablet; Refills: 0, cp Product Selection Permitted - Ibuprofen 800 mg Oral Tablet - take 1 tablet by ORAL route every 8 hours As needed take with food; 30 tablet; cp Refills: 0, Product Selection Permitted - albuterol sulfate 90 mcg/actuation Inhalation HFA aerosol inhaler - inhale 1 puff by INHALATION route every 4-6 hours; 1 Inhaler; Refills: 0, cp Product Selection Permitted - Bromfed DM 2-30-10 mg/5 mL Oral syrup - take 10 milliliter by ORAL route every 6 hours; 180 milliliter; Refills: 0, cp Product Selection Permitted - Zithromax Z-Ethan 250 mg Oral Tablet - take 1 tablet by ORAL route as directed for 5 days Day 1 - take two (2) tablets cp one time. Day 2, 3, 4 , 5 take one (1) tablet once daily.; 6 tablet; Refills: 0, Product Selection Permitted Signatures: Dispatcher [employer] EDArturo Caballero MD MD rn Page, Corey, PA PA Keaton Sheikh RN RN jl7 Corrections: (The following items were deleted from the chart) 09:05 09:01 Urine Dipstick-Ancillary ordered. cp jl7 09:05 09:01 Urine Test ordered. cp trevin7
[2022-08-19 10:37] VITALS: BP 132/89; TEMP 97.7; O2SAT 97
== END 2022-08-19 10:22 | disposition home or self-care (01) ==
LOC: ER 08:47
DX: J18.8 Other pneumonia, unspecified organism (principal)
CPT/HCPCS: 71046; 87070; 87081; 99283

== ENCOUNTER 2023-03-18 21:09 | Observation (INO) | payer OTHER ==
--- OUTSIDE RECORDS SUMMARY | 2023-03-18 21:12 | XMS REPORT | Continuity of Care Document ---
:1995 Author Organization [facility] t Address [address] [facility] [place] [address] Care Team Providers Name Role Phone Amelie Kent Primary Care Physician [phone] EDITH BAEZA Attending Clinician Unavailable EDITH BAEZA Attending Clinician Unavailable Doctor Unassigned, [place] Attending Clinician Unavailable mUu Kwong MD Attending Clinician AMELIE MARCELO Attending Clinician Unavailable Amelie Kent Attending Clinician [phone] LISA [place] Attending Clinician Unavailable Provider, Ang-Rmchp Temp Attending Clinician Unavailable Lisa Jose Attending Clinician SHELL ASHER Attending Clinician Unavailable Camilo Santana MD Attending Clinician Rodo Kerns Attending Clinician Risk, Bts-Bvaor-Yi/High Attending Clinician Unavailable Barbara Camacho Attending Clinician BARBARA STRICKLAND Attending Clinician Unavailable Risk, Pea-Rmchp Provider/High Attending Clinician Unavailabl e Ultrasound, Ang-Mfm Attending Clinician Unavailable Adam Kramer MD Attending Clinician [phone] Lab, Ang-Rmchp Attending Clinician Unavailable Juan Yi MD Attending Clinician UMU KWONG Attending Clinician Unavailable Mikaela DO, Nichole J Attending Clinician Maia RN, Christine Serrano Attending Clinician Unavailable 1, Pea-m Us Room Attending Clinician Unavailable Wilfred ARIZMENDI, Nasra Long Attending Clinician Lab, [facility] Attending Clinician Unavailable Reny MSN, Rachelle Esvin Attending Clinician Vidal ARIZMENDI, Heriberto Cobb Attending Clinician Faculty, Arnulfo Hernandez [facility] Attending Clinician Unavailable Mars ARIZMENDI, Tate Hall Attending Clinician 2, Adc Lab Attending Clinician Unavailable SHELL ASHER Admitting Clinician Unavailable Payers Payer Name Policy Type Policy Number Effective Date Expiration Date Desire WEBSTER [id number] 2016 HEALTH 00:00:00 Problems Condition Condition Condition Status Onset Resolution Last Treating Co mments Source Name Details Category Date Date Treatment Clinician Date Other Other Disease Active 2020-10 Univers general general 2-29 it[place] of counseling [place] and advice and advice [address] [facility] contracept contracept william wililam management management Refuses Refuses Disease Active 2020-10 Univers tetanus, tetanus, 0-21 ity of diphtheria diphtheria 00:00[place] , and , and 00 Medical acellular acellular Bran ch pertussis pertussis (Tdap) (Tdap) vaccinatio vaccinatio n n Hypothyroi Hypothyroi Disease Active U nivers dism in dism in 3-19 ity of 00:00: [address] Obesity Obesity Disease Active Univers (BMI (BMI 3-19 ity of 30-39.9) 30-39.9) 00:00: [address] Allergies, Adverse Reactions, Alerts Allergy Allergy Status Severity Reaction(s) Onset Inactive Treating Comm ents Source Name Type Date Date Clinician NO KNOWN Drug Active [facility] ALLERGIE Class ity of [facility] Social History Social Habit Start Date Stop Date Quantity Comments Source Exposure to 2022-08-24 2022-09-03 Not sure [facility] SARS-CoV-2 00:00:00 14:02:00 [facility] (event) [place] Alcohol intake 2021-10-02 2021-10-02 Current University of 00:00:00 00:00:00 non-drinker of [facility] alcohol (finding) [place] Tobacco use and 2017-12-22 2017-12-22 Smokeless tobacco Un iversity of exposure 00:00:00 00:00:00 non-user [facility] Sex Assigned At [birth year] Universit y of 00:00:00 00:00:00 [facility] Smoking Status Start Date Stop Date Source Never smoked tobacco [facility] Medications Ordered Filled Start Stop Current Ordering Indication Dosage Frequency Signature Comments Components Source Medication Medication Date Date Medication? Clinician (SIG) Name Name levothyroxi 0 Yes [id number] 224ug Take 2 Univers ne 112 mcg 5-17 tablets by ity of tablet 00:00: mouth [place] 00 every Medical morning. [place] levothyroxi 2021-10 Yes [id number] 224ug Take 2 Univers ne 112 mcg 1-30 tablets by ity of tablet 00:00: mouth [place] 00 every Medical morning. [place] levothyroxi 2021-10 Yes [id number] 224ug Take 2 Univers ne 112 mcg 1-30 tablets by ity of tablet 00:00: mouth [place] 00 every Medical morning. [place] levothyroxi 2021-10 Yes [id number] 224ug Take 2 Univers ne 112 mcg 1-30 tablets by ity of tablet 00:00: mouth [place] 00 every Medical morning. [place] levothyroxi 2021-10- No [id number] 224ug Take 2 Univers ne 112 mcg 1-30 05-17 tablets by it y of tablet 00:00: 00:00 mouth [place] 00 :00 every Medical morning. [place] triamcinolo 2020-10 Yes [id number] Apply to Univers ne 2-02 area(s) 2 ity of acetonide 00:00: (two) [place] 0.1 % 00 times Medical ointment daily. Branch triamcinolo 2020-10 Yes [id number] Apply to Univers ne 2-02 area(s) 2 ity of acetonide 00:00: (two) [place] 0.1 % 00 times Medical ointment daily. [place] triamcinolo 2020-10 Yes [id number] Apply to Univers ne 2-02 area(s) 2 ity of acetonide 00:00: (two) [place] 0.1 % 00 times Medical ointment daily. [place] triamcinolo 2020-10 Yes [id number] Apply to [facility] 2-02 area(s) 2 ity of acetonide 00:00: (two) [place] 0.1 % 00 times Medical ointment daily. Branch triamcinolo 2020-10 Yes [id number] Apply to [facility] 2-02 area(s) 2 ity of acetonide 00:00: (two) [place] 0.1 % 00 times Medical ointment daily. Branch triamcinolo 2020-10 Yes [id number] Apply to [facility] 2-02 area(s) 2 ity of acetonide 00:00: (two) [place] 0.1 % 00 times Medical ointment daily. Branch triamcinolo 2020-10 Yes [id number] Apply to [facility] 2-02 area(s) 2 ity of acetonide 00:00: (two) [place] 0.1 % 00 times Medical ointment daily. Branch 2020-10- No [id number] 1{tbl} Take 1 Univers eto664-fkmg 10-16 tablet by it y of fum-folic 00:00: 00:00 mouth [place] () 00 :00 daily. Medical 27 mg iron- Branch 1 mg Tab docusate 2020-10- No [id number] 240mg Take 1 Univers calcium 240 10-16 capsule by i ty of mg capsule 00:00: 00:00 mouth once [place] 00 :00 daily as Medical needed for Branch Constipati on. ferrous 2020-10- No [id number] 325mg Take 1 U nivers sulfate 325 10-16 tablet by it y of mg (65 mg 00:00: 00:00 [place] iron) 00 :00 (two) Medical tablet times Branch daily. ibuprofen 2020-10- No [id number] 600mg Take 1 Univers 600 mg 10-16 tablet by ity of tablet 00:00: 00:00 mouth [place] 00 :00 every 6 Medical (six) Branch hours as needed (Pain). Take with food or milk. pantoprazol 2020- No [id number] 40mg Take 1 Univers e 7-28 -29 tablet by ity of (PROTONIX) 00:00: 00:00 mouth [place] 40 mg EC 00 :00 daily. Medical tablet Branch levothyroxi 2020-0 Yes [id number] 250ug Take 2 Univers ne 125 mcg 6-23 tablets by ity of tablet 00:00: mouth [place] 00 every Medical morning. Branch levothyroxi 2020-0 Yes [id number] 250ug Take 2 Univers ne 125 mcg 6-23 tablets by ity of tablet 00:00: mouth [place] 00 every Medical morning. Branch levothyroxi 2020-0 Yes [id number] 250ug Take 2 Univers ne 125 mcg 6-23 tablets by ity of tablet 00:00: mouth [place] 00 every Medical morning. Branch levothyroxi 2020-0 2- No [id number] 250ug Take 2 Univers ne 125 mcg 6-23 11-30 tablets by it y of tablet 00:00: 00:00 mouth [place] 00 :00 every Medical morning. Branch levothyroxi 2020-0 2021- No [id number] 250ug Take 2 Univers ne 125 mcg 6-23 11-30 tablets by it y of tablet 00:00: 00:00 mouth [place] 00 :00 every Medical morning. Branch Immunizations Ordered Filled Immunization Date Status Comments [facility] e Immunization Name Name HPV9 2018-08-16 Completed University of 00:00:00 [facility] HPV9 2018-08-16 Completed University of 00:00:00 [facility] HPV9 2018-08-16 Completed University of 00:00:00 [facility] HPV9 2018-08-16 Completed University of 00:00:00 [facility] HPV9 2018-08-16 Completed University of 00:00:00 [facility] HPV9 2018-08-16 Completed University of 00:00:00 [facility] HPV9 2018-08-16 Completed University of 00:00:00 [facility] HPV9 2017-12-22 Completed University of 00:00:00 [facility] HPV9 2017-12-22 Completed University of 00:00:00 [facility] HPV9 2017-12-22 Completed University of 00:00:00 [facility] HPV9 2017-12-22 Completed University of 00:00:00 [facility] HPV9 2017-12-22 Completed University of 00:00:00 [facility] HPV9 2017-12-22 Completed University of 00:00:00 [facility] HPV9 2017-12-22 Completed University of 00:00:00 [facility] HPV9 2017-11-12 Completed University of 00:00:00 [place] [facility] 2017-11-12 Completed University of 00:00:00 [facility] Branch [facility] 2017-11-12 Completed University of 00:00:00 [place] [facility] 2017-11-12 Completed University of 00:00:00 [place] [facility] HPV9 2017-11-12 Completed University of 00:00:00 [facility] Branch [facility] 2017-11-12 Completed University of 00:00:00 [facility] Branch [facility] 2017-11-12 Completed University of 00:00:00 [facility] Vital Signs Vital Name Observation Time Observation Value Comments Source Systolic blood 2022-09-03 20:05:00 101 mm[Hg] Univer sity of pressure [facility] Diastolic blood 2022-09-03 20:05:00 70 mm[Hg] Unive rsity of pressure [facility] Heart rate 2022-09-03 20:05:00 81 /min Universi [facility] Body weight 2022-09-03 20:05:00 88.043 kg [facility] BMI 2022-09-03 20:05:00 37.91 kg/m2 [facility] Oxygen saturation in 2022-09-03 20:05:00 97 /min [facility] Arterial blood by [facility] Pulse oximetry Branch Systolic blood 2021-10-02 16:40:00 108 mm[Hg] Univer sity of pressure [facility] Diastolic blood 2021-10-02 16:40:00 74 mm[Hg] Unive rsity of pressure [facility] Heart rate 2021-10-02 16:40:00 68 /min [facility] Body temperature 2021-10-02 16:40:00 36.17 [facility]y [facility] Respiratory rate 2021-10-02 16:40:00 20 /[facility] Body height 2021-10-02 16:40:00 152.4 cm [facility] Body weight 2021-10-02 16:40:00 87.363 kg Universi [facility] BMI 2021-10-02 16:40:00 37.61 kg/m2 [facility] Procedures Procedure Date / Time Performed Performing Clinician [facility] e ASSIGNMENT OF BENEFITS 2022-09-03 20:03:31 Doctor Unassigned, No [facility] Encounters Start End Encounter Admission Attending Care Care Encounter Source Date/Time Date/Time Type Type Clinicians Facility Department ID 2021-08-05 Emergency [facility] [id number] Univers 17:42:48 ity of [facility] 2023-02-18 2023-02-18 Refill FelishaEdith garcia [facility] 1.2.840.114 [id number] Univers 00:00:00 00:00:00 HEALTH 350.1.13.10 it y of [place] 4.2.7.2.686 Aramis as TEE?BLEA [id number] [address] MEDICAL OFFICE [facility] 2023-01-05 2023-01-05 Outpatient R FELISHAEDITH [facility] [id number] Univers 16:00:00 16:00:00 FLEISHAEDITH [facility] 2023-01-05 2023-01-05 Telephone Felisha [facility] 1..[id number] Univers 00:00:00 00:00:00 HEALTH 350.1.13.10 it [facility] 4.2.7.2.686 Aramis as TEE?BLEA [id number] [address] OFFICE [facility] 2022-09-03 2022-09-03 Outpatient R FELISHAEDITH [facility] [id number] Univers 14:00:00 14:36:53 FELISHAEDITH [facility] 2022-09-03 2022-09-03 Office Felisha [facility] 1.2.840.114 [id number] Univers 14:00:00 14:36:53 Visit HEALTH 350.1.13.10 it y of [place] 4.2.7.2.686 Aramis as TEE?BLEA [id number] [address] MEDICAL OFFICE BUILDING 2022-09-03 2022-09-03 Orders Doctor MOE 1.2.840.114 [id number] Univers 00:00:00 00:00:00 Only Unassigned, CUATE 350.1.13.10 ity of [place] [facility] 4.2.7.2.686 Aramis as [phone] [address] 2022-08-20 2022-08-20 [facility] [id number] Univers 00:00:00 00:00:00 Critical access hospital 350.1.13.10 it y [facility] 4.2.7.2.686 Aramis as TEE?BLEA [id number] [address] MEDICAL OFFICE BUILDING 2021-10-02 2021-10-02 Outpatient R FOZIA [facility] [id number] Univers 10:30:00 11:19:30 AMELIE hamilton o f [facility] 2021-10-02 2021-10-[address] [facility] [id number] Univers 10:30:00 11:19:30 Visit Amelie Sumner RADIO JOURNALIST 350.1.13.10 ity of REGIONAL 4.2.7.2.686 Aramis as MATERNAL [id number] Med ical & CHILD [address] [place] [address] 2021-09-05 2021-09-05 Outpatient R MIKAELA [facility] [id number] Univers 13:45:00 14:29:29 [facility] 2021-09-05 2021-09-05 Routine Provider, Albaro Sow [facility] 1 .2.840.114 [id number] Univers 13:43:40 14:29:29 Lisa Al RADIO JOURNALIST 350.1.13.10 ity of Visit REGIONAL 4.2.7.2.686 Aramis as MATERNAL [id number] [facility] & CHILD [address] [place] [address] 2021-08-19 2021-08-19 Outpatient P [facility] [id number] Univers 11:30:00 11:30:00 ity [facility] 2021-08-14 2021-08-16 Inpatient P ROYCE [facility] EMMA [id number] Univers 09:34:00 15:31:00 SHELL ity [facility] 2021-08-14 2021-08-16 [facility] PAYAL Asher 1.2.840.114 [id number] Univers 09:34:00 15:31:00 Encounter Shell CUELLO 350.1.13.10 ity of HOSPITAL 4.2.7.2.686 Aramis as [id number] [facility] [address] Branch 2021-08-14 2021-08-15 Anesthesia SantanaCamilo calero 1.2.840.1 [id number] Univers 22:35:00 08:10:00 Event Rodo Samuels 350.1.13.10 ity of HOSPITAL 4.2.7.2.686 Aramis as [id number] [facility] 132 Branch 2021-08-08 2021-08-08 Routine Risk, Qvd-Nybng-Rn/High [facility] 1. 2.840.114 [id number] Univers 13:17:44 14:48:40 Barbara Strickland RADIO JOURNALIST 350.1.13.10 ity of Visit REGIONAL 4.2.7.2.686 Aramis as MATERNAL [id number] Med ical & CHILD [address] [place] [address] 2021-08-08 2021-08-08 Outpatient Rafael STRICKLAND [facility] [id number] Univers 13:15:00 14:48:40 BARBARA hamilton [facility] 2021-08-02 2021-08-02 Routine Risk, Pea-Rmchp Provider/High [facility] 1.2.840.114 [id number] Univers 13:14:26 13:58:22 Barbara Strickland RADIO JOURNALIST 350.1.13.10 ity of Visit REGIONAL 4.2.7.2.686 Aramis as MATERNAL [id number] Med ical & CHILD [address] [place] [address] 2021-08-02 2021-08-02 Outpatient Rafael STRICKLAND [facility] [id number] Univers 13:00:00 13:58:22 BARBARA hamilton [facility] 2021-07-26 2021-07-26 Telephone [facility] 1.2.840.114 [id number] Univers 00:00:00 00:00:00 Lisa Garcia RADIO JOURNALIST 350.1.13.10 it y of REGIONAL 4.2.7.2.686 Aramis as MATERNAL [id number] Med ical & CHILD [address] [place] [address] 2021-07-25 2021-07-25 Routine Mikaela [facility] 1.2.033.386 [id number] Univers 08:41:57 09:11:37 Lisa Garcia RADIO JOURNALIST 350.1.13.10 i ty of Visit REGIONAL 4.2.7.2.686 Aramis as MATERNAL [id number] [facility] & CHILD [address] [place] [address] 2021-07-25 2021-07-25 Outpatient R MIKAELA [facility] [id number] Univers 09:00:00 09:00:00 LISASERGIO hamilton [facility] 2021-07-23 2021-07-23 Armhole Presser Ultrasound, [facility] 1.2 .840.114 [id number] Univers 11:31:17 12:01:17 Visit Adam Kramer RADIO JOURNALIST 350.1. 13.10 ity of [facility] 4.2.7.2.686 Aramis as MATERNAL [id number] [facility] & CHILD [address] [facility] 2021-07-23 2021-07-23 Outpatient P [facility] [id number] Univers 11:30:00 11:30:00 sascha [facility] 2021-07-19 2021-07-19 Routine [facility] [id number] Univers 10:54:44 11:09:44 Lisa Garcia RADIO JOURNALIST 350.1.13.10 i ty of Visit REGIONAL 4.2.7.2.686 Armais as MATERNAL [id number] [facility] & [address] 2021-07-19 2021-07-19 Outpatient Rafael AL [facility] [id number] Univers 11:00:00 11:00:00 LISA hamilton [facility] 2021-07-10 2021-07-10 Outpatient Rafael MARCELO [facility] [id number] Univers 10:00:00 10:00:00 AMELIE handley [facility] 2021-06-26 2021-06-26 Outpatient Rafael MARCELO [facility] [id number] Univers 15:45:00 15:45:00 AMELIE handley [facility] 2021-06-26 2021-06-26 Outpatient R FOZIA [facility] [id number] Univers 13:00:00 13:00:00 AMELIE ity o f [facility] 2021-06-25 2021-06-25 Telephone Fozia [facility] 1.2.840.114 [id number] Univers 00:00:00 00:00:00 Amelie C RADIO JOURNALIST 350.1.13.10 ity of REGIONAL 4.2.7.2.686 Aramis as MATERNAL [id number] [facility] ical & CHILD [address] [place] [address] 2021-06-14 2021-06-14 Armhole Presser Lab, [facility] 1.2.840. 114 [id number] Univers 08:01:57 08:18:19 Visit Amelie Marcelo RADIO JOURNALIST 350.1.13. 10 ity of REGIONAL 4.2.7.2.686 Aramis as MATERNAL [id number] [facility] & CHILD [address] [place] [address] 2021-06-14 2021-06-14 Armhole Presser Lab, [facility] 1.2.840. 114 [id number] Univers 08:01:57 08:18:19 Visit Amelie Marcelo RADIO JOURNALIST 350.1.13. 10 ity of REGIONAL 4.2.7.2.686 Aramis as MATERNAL [id number] [facility] & CHILD [address] [place] [address] 2021-06-14 2021-06-14 Outpatient R [facility] [id number] Univers 08:00:00 08:00:00 ity of [facility] 2021-06-12 2021-06-12 Abstract Fozia [facility] 1.2.840.114 [id number] Univers 00:00:00 00:00:00 Amelie C RADIO JOURNALIST 350.1.13.10 ity of REGIONAL 4.2.7.2.686 Aramis as MATERNAL [id number] [facility] & CHILD [address] [place] [address] 2021-06-12 2021-06-12 Abstract Fozia [facility] 1.2.840.114 [id number] Univers 00:00:00 00:00:00 Amelie C RADIO JOURNALIST 350.1.13.10 ity of REGIONAL 4.2.7.2.686 Aramis as MATERNAL [id number] [facility] & CHILD [address] [place] [address] 2021-06-11 2021-06-11 Office Akinsipe, MOMB [id number] Univers 15:42:11 16:50:01 Visit Amelie C RADIO JOURNALIST 350.1.13.10 ity of REGIONAL 4.2.7.2.686 Aramis as MATERNAL [id number] [facility] & CHILD [address] [place] [address] 2021-06-11 2021-06-11 Office Akinpe, [facility] [id number] Univers 15:42:11 16:50:01 Visit Amelie C RADIO JOURNALIST 350.1.13.10 ity of REGIONAL 4.2.7.2.686 Aramis as MATERNAL [id number] [facility] & CHILD [address] [place] [address] 2021-06-11 2021-06-11 Outpatient R FOZIA [facility] [id number] Univers 16:00:00 16:00:00 AMELIE ity o f [facility] 2021-06-11 2021-06-11 Armhole Presser Ultrasound, [facility] 1.2 .840.114 [id number] Univers 15:15:20 15:40:12 Visit Juan Yi RADIO JOURNALIST 350.1.13.10 ity of REGIONAL 4.2.7.2.686 Aramis as MATERNAL [id number] [facility] & CHILD [address] [place] [address] 2021-06-11 2021-06-11 Armhole Presser Ultrasound, [facility] 1.2 .840.114 [id number] Univers 15:15:20 15:40:12 Visit Juan Yi RADIO JOURNALIST 350.1.13.10 ity of REGIONAL 4.2.7.2.686 Aramis as MATERNAL [id number] [facility] & CHILD [address] [place] [address] 2021-05-29 2021-05-29 Outpatient P [facility] [id number] Univers 09:00:00 09:00:00 ity of [facility] 2021-05-29 2021-05-[address] [facility] 1.2.840.114 [id number] Univers 00:00:00 00:00:00 Amelie Burak RADIO JOURNALIST 350.1.13.10 ity of [facility] 4.2.7.2.686 Aramis as MATERNAL [id number] [facility] & [address] 2021-05-29 2021-05-[address] [facility] 1.2.840.114 [id number] Univers 00:00:00 00:00:00 Amelie Sumner RADIO JOURNALIST 350.1.13.10 ity of [facility] 4.2.7.2.686 Aramis as MATERNAL [id number] [address] 2021-05-28 2021-05-28 [facility] [id number] Univers 15:00:00 15:00:00 WENTONG ity of [facility] 2021-05-28 2021-05-28 Emergency [facility] 1.2.840.114 [id number] Univers 11:53:00 13:04:00 Nichole Juárez 350.1.13.10 ity of [place] 4.2.7.2.686 [facility] [id number] [address] 2021-05-28 2021-05-28 Emergency [facility] 1.2.840.114 [id number] Univers 11:53:00 13:04:00 Nichole Juárez 350.1.13.10 ity of [place] 4.2.7.2.686 [facility] [id number] [address] 2021-05-28 2021-05-28 Orders Doctor PAYAL 1.2.840.114 [id number] Univers 00:00:00 00:00:00 Only Unassigned, CUATE 350.1.13.10 ity of [place] [facility] 4.2.7.2.686 Aramis as [id number] [address] 2021-05-28 2021-05-28 Nurse PAYAL Carvalho 1.2.840.114 [id number] Univers 00:00:00 00:00:00 Triage Christine CUELLO 350.1.13.10 it y of HOSPITAL 4.2.7.2.686 Aramis as [id number] [facility] 019 [place] 2021-05-28 2021-05-28 Orders Doctor PAYAL 1.2.840.114 [id number] Univers 00:00:00 00:00:00 Only Unassigned, CUATE 350.1.13.10 ity of [place] [facility] 4.2.7.2.686 Aramis as [id number] [facility] 009 [place] 2021-05-28 2021-05-28 Nurse PAYAL Carvalho 1.2.840.114 [id number] Univers 00:00:00 00:00:00 Triage Christine CUELLO 350.1.13.10 it y of [facility] 4.2.7.2.686 Aramis as [id number] [facility] 019 [place] 2021-05-22 2021-05-22 Telephone Risk, [facility] 1.2.616.115 [id number] Univers 00:00:00 00:00:00 Ang-Rmchp-N RADIO JOURNALIST 350.1.13.10 ity of p/High REGIONAL 4.2.7.2.686 Aramis as MATERNAL [id number] Med ical & CHILD [address] [place] [address] 2021-05-15 2021-05-15 Outpatient R [facility] [id number] Univers 08:00:00 08:00:00 ity of [facility] 2021-05-01 2021-05-01 Routine Risk, Bcn-Wdcdv-Ss/High [facility] 1. 2.840.114 [id number] Univers 10:00:17 11:16:35 Barbara Strickland RADIO JOURNALIST 350.1.13.10 ity of Visit REGIONAL 4.2.7.2.686 Aramis as MATERNAL [phone] [facility] ical & CHILD [address] [place] [address] 2021-05-01 2021-05-01 Routine Risk, Les-Nutdy-Yk/High [facility] 1. 2.840.114 [id number] Univers 10:00:17 11:16:35 Barbara Strickland RADIO JOURNALIST 350.1.13.10 ity of Visit REGIONAL 4.2.7.2.686 Aramis as MATERNAL [phone] [facility] & CHILD 107 [facility] 2021-05-01 2021-05-01 Outpatient R [facility] [id number] Univers 10:00:00 10:00:00 ity of [facility] 2021-05-01 2021-05-01 Abstract [facility] 1.2.840.114 [id number] Univers 00:00:00 00:00:00 Amelie C RADIO JOURNALIST 350.1.13.10 ity of REGIONAL 4.2.7.2.686 Aramis as MATERNAL [phone] Med ical & CHILD [address] [place] [address] 2021-04-30 2021-04-30 Armhole Presser 1[facility] Room [facility] 1.2. 840.114 [id number] Univers 09:16:39 10:11:40 Visit Juan Yi RADIO JOURNALIST 350.1.13.10 ity of REGIONAL 4.2.7.2.686 Aramis as MATERNAL [phone] Med ical & CHILD 369 [facility] 2021-04-30 2021-04-30 Outpatient P [facility] [id number] Univers 09:15:00 09:15:00 [facility] 2021-04-24 2021-04-24 [facility] 1.2.867.136 [id number] Univers 10:59:03 11:40:06 Amelie Sumner RADIO JOURNALIST 350.1.13.10 ity of Visit REGIONAL 4.2.7.2.686 Aramis as MATERNAL [phone] Med ical & CHILD [address] [place] [address] 2021-04-24 2021-04-24 [facility] [id number] Univers 10:45:00 10:45:00 AMELIE hamilton o f [facility] 2021-04-17 2021-04-17 Outpatient R [facility] [id number] Univers 11:45:00 11:45:00 ity of [facility] 2021-04-01 2021-04-01 Outpatient P [facility] [id number] Univers 13:00:00 13:00:00 ity [facility] 2021-03-28 2021-03-28 Routine Risk, Wvx-Tzztp-Mp/High [facility] 1. 2.840.114 [id number] Univers 15:18:18 16:30:10 Sylvia Barbara L RADIO JOURNALIST 350.1.13.10 ity of Visit [facility] 4.2.7.2.686 Aramis as MATERNAL [phone] [facility] & CHILD [address] [place] [address] 2021-03-28 2021-03-28 Outpatient R [facility] [id number] Univers 15:30:00 15:30:00 [facility] 2021-03-28 2021-03-28 Telephone [facility] 1.2.840.114 [id number] Univers 00:00:00 00:00:00 Amelie Sumner RADIO JOURNALIST 350.1.13.10 ity of [facility] 4.2.7.2.686 Aramis as MATERNAL [phone] [address] 2021-03-27 2021-03-27 Office [facility] 1.2.840.114 [id number] Univers 10:55:16 12:03:38 Visit [facility] 350.1.13.10 i ty [facility] [place]2.7.2.[place] [phone] Ut dic[address] 2021-03-27 2021-03-27 Outpatient R VARGHESE [facility] [id number] Univers 11:00:00 11:00:00 [facility] 2021-03-26 2021-03-26 Telephone [facility] 1.2.840.114 [id number] Univers 00:00:00 00:00:00 Amelie Sumner RADIO JOURNALIST 350.1.13.10 ity of [facility] 4.2.7.2.686 Aramis as MATERNAL [phone] [facility] & CHILD [address] [place] [address] 2021-03-25 2021-03-25 Routine Fozia [facility] 1.2.601.662 [id number] Univers 15:43:37 16:22:05 Amelie C RADIO JOURNALIST 350.1.13.10 ity of Visit REGIONAL 4.2.7.2.686 Aramis as MATERNAL [id number] [facility] & CHILD [address] [place] [address] 2021-03-25 2021-03-25 [facility] [id number] Univers 15:45:00 15:45:00 AMELIE ity o f [facility] 2021-03-20 2021-03-20 Outpatient R FOZIA [facility] [id number] Univers 11:00:00 11:00:00 AMELIE ity o f [facility] 2021-02-25 2021-02-25 Telephone [facility] 1.2.840.114 [id number] Univers 00:00:00 00:00:00 Amelie C RADIO JOURNALIST 350.1.13.10 ity of REGIONAL 4.2.7.2.686 Aramis as MATERNAL [phone] [facility] & CHILD [address] [place] [address] 2021-02-20 2021-02-20 Routine [facility] 1.2.553.736 [id number] Univers 09:11:06 09:54:25 Amelie C RADIO JOURNALIST 350.1.13.10 ity of Visit REGIONAL 4.2.7.2.686 Aramis as MATERNAL [phone] [facility] & CHILD [address] [place] [address] 2021-02-20 2021-02-20 [facility] [id number] Univers 09:00:00 09:00:00 AMELIE ity o f [facility] 2021-02-15 2021-02-15 Abstract [facility] 1.2.840.114 [id number] Univers 00:00:00 00:00:00 Amelie C RADIO JOURNALIST 350.1.13.10 ity of REGIONAL 4.2.7.2.686 Aramis as MATERNAL [phone] [facility] & CHILD [address] [place] [address] 2021-02-14 2021-02-14 Armhole Presser 1Davidson Room [facility] 1.2. 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 114 [id number] Univers 13:28:49 14:03:13 Visit Rachelle Oglesby RADIO JOURNALIST 350.1.13.10 ity of REGIONAL 4.2.7.2.686 Aramis as MATERNAL [phone] [facility] ical & CHILD [address] [place] [address] 2021-02-14 2021-02-14 Outpatient P [facility] [id number] Univers 13:30:00 13:30:00 ity of [facility] 2021-01-26 2021-01-26 Telephone Heriberto Drake 1.2.840.114 [id number] Univers 00:00:00 00:00:00 Jordyndamián CUELLO 350.1.13.10 i ty of [facility] 4.2.7.2.686 Aramis as [id number] [address] 2021-01-23 2021-01-23 Telephone [facility] 1.2.840.114 [id number] Univers 00:00:00 00:00:00 Amelie Sumner RADIO JOURNALIST 350.1.13.10 ity of REGIONAL 4.2.7.2.686 Aramis as MATERNAL [phone] [facility] ical & CHILD [address] [place] [address] 2021-01-22 2021-01-[address] [facility] 1.2.535.504 [id number] Univers 12:54:41 13:42:54 Amelie Sumner RADIO JOURNALIST 350.1.13.10 ity of Visit [facility] 4.2.7.2.686 Aramis as MATERNAL [phone] [facility] ical & CHILD [address] [place] [address] 2021-01-22 2021-01-22 [facility]patient [facility] [id number] Univers 13:00:00 13:00:00 AMELIE ity o f [facility] 2021-01-21 2021-01-21 Telemedici Faculty, Arnulfo Hernandez [facility] 1.2.840.114 [id number] Univers 07:44:17 10:22:11 ne Visit Tate Crews Rafael RADIO JOURNALIST 350.1.13.10 ity of REGIONAL 4.2.7.2.686 Aramis as MATERNAL [phone] [facility] ical & CHILD [address] [place] [address] 2021-01-21 2021-01-21 Outpatient R [facility] [id number] Univers 10:00:00 10:00:00 ity of [facility] 2021-01-18 2021-01-[address] [facility] 1.2.840.114 [id number] Univers 00:00:00 00:00:00 Amelie Sumner RADIO JOURNALIST 350.1.13.10 ity of REGIONAL 4.2.7.2.686 Aramis as MATERNAL [phone] [facility] & CHILD [address] [place] [address] 2021-01-11 2021-01-[address] [facility] 1.2.840.114 [id number] Univers 00:00:00 00:00:00 Amelie Sumner RADIO JOURNALIST 350.1.13.10 ity of REGIONAL 4.2.7.2.686 Aramis as MATERNAL [id number] [facility] & CHILD [address] [place] [address] 2021-01-10 2021-01-10 Armhole Presser [facility] 1.2. 840.114 [id number] Univers 15:34:19 16:01:23 Visit Nasra Hardin RADIO JOURNALIST 350.1.13.10 ity of REGIONAL 4.2.7.2.686 Aramis as MATERNAL [phone] [facility] ical & CHILD [address] [place] [address] 2021-01-10 2021-01-10 Outpatient P [facility] [id number] Univers 15:30:00 15:30:00 ity [facility] 2020-12-28 2020-12-28 Armhole Presser Lab, [facility] 1.2.840. 114 [id number] Univers 07:59:57 08:19:00 Visit Amelie Marcelo RADIO JOURNALIST 350.1.13. 10 ity of REGIONAL 4.2.7.2.686 Aramis as MATERNAL [phone] [facility] & CHILD [address] [place] [address] 2020-12-28 2020-12-28 Outpatient R FOZIA [facility] [id number] Univers 08:00:00 08:00:00 AMELIE handley [facility] 2020-12-26 2020-12-26 Telephone [facility] 1.2.840.114 [id number] Univers 00:00:00 00:00:00 Amelie C RADIO JOURNALIST 350.1.13.10 ity of REGIONAL 4.2.7.2.686 Aramis as MATERNAL [phone] [facility] CHILD [address] [place] [address] 2020-12-24 2020-12-24 Telephone [facility] 1.2.840.114 [id number] Univers 00:00:00 00:00:00 Amelie C RADIO JOURNALIST 350.1.13.10 ity of REGIONAL 4.2.7.2.686 Aramis as MATERNAL [phone] [facility] & CHILD [address] [place] [address] 2020-12-21 2020-12-21 Initial [facility] 1.2.764.133 [id number] Univers 08:27:48 09:49:43 Amelie C RADIO JOURNALIST 350.1.13.10 ity of Visit REGIONAL 4.2.7.2.686 Aramis as MATERNAL [id number] [facility] & CHILD [address] [place] [address] 2020-12-21 2020-12-21 Outpatient R FOZIA [facility] [id number] Univers 08:30:00 08:30:00 AMELIE handley [facility] 2020-10-12 2020-10-12 Telephone [facility] 1.2.979.612 [id number] Univers 00:00:00 00:00:00 [place] MULTISPEC 350.1.13.10 it[place] [id number] [facility] [place] [address] [facility] 2020-10-03 2020-10-03 Armhole Presser 2, Adc Lab [facility] 1.2.840.114 [id number] Univers 09:34:16 09:49:16 Visit Umu Kwong 350.1.13.10 ity of [place].7.2.[place] [phone] [facility] 353 [facility] 2020-10-03 2020-10-03 Outpatient R [facility] [id number] Univers 09:30:00 09:30:00 ity [facility] 2020 2020 Office [facility] 1.2.840.114 [id number] Univers 13:14:36 13:56:24 Visit Umu Juárez 350.1.13.10 i ty of [place]2.7.2.[place] [id number] [facility] 220 [facility] 2020 2020 [facility]patient [facility] [id number] Univers 11:30:00 11:30:00 SALEEMONG ity [facility] 2020-08-01 2020-08-01 Telephone [facility] 1.2.758.692 [id number] Univers 00:00:00 00:00:00 Umu Juárez 350.1.13.10 i ty of [place]2.7.2.[place] [phone] [facility] 220 [facility] 2020-07-24 2020-07-24 Armhole Presser 2, Adc Lab [facility] 1.2.840.114 [id number] Univers 08:19:08 08:34:08 Visit Umu Kwong 350.1.13.10 ity of [place].2.7.2.[place] [id number] [address] 2020-07-24 2020-07-24 Outpatient R [facility] [id number] Univers 08:00:00 08:00:00 ity [facility] 2020-06-26 2020-06-26 Office Varghese [facility] 1.2.840.114 [id number] Univers 08:30:53 08:58:41 Visit Umu Juárez 350.1.13.10 i ty of [place] 4.2.7.2.[place] [phone] Ut dical [address] 2020-06-26 2020-06-26 Outpatient R VARGHESE [facility] [id number] Univers 08:30:00 08:30:00 [facility] 2019-12-21 2019-12-21 Office [facility] 1.2.840.114 [id number] Univers 10:32:48 11:01:37 Visit [facility] 350.1.13.10 i ty of [place] 4.2.7.2.[place] [phone] Ut dic[address] 2019-12-21 2019-12-21 Outpatient R VARGHESE [facility] [id number] Univers 10:30:00 10:30:00 [facility] 2019-12-21 2019-12-21 Orders Doctor PAYAL 1.2.840.114 [id number] Univers 00:00:00 00:00:00 Only Unassigned, CUATE 350.1.13.10 ity of [facility] 4.2.7.2.686 Aramis as [phone] [address] 2019-12-21 2019-12-21 Letter Doctor PAYAL 1.2.840.114 [id number] Univers 00:00:00 00:00:00 (Out) Unassigned, CUATE 350.1.13.10 ity of [facility] 4.2.7.2.686 Aramis as [phone] [address] Results This patient has no known results.
[2023-03-18] MEDS ORDERED: NA CHLORIDE 0.9% 1,000 ML ONE (21:53)
[2023-03-18 22:08] LABS: Hematocrit 35.8 % (36.0-45.0); Lymphocytes % 17.8 % (15.3-44.8); MCV 76.5 fL (80-100); MPV 7.6 fL (7.6-11.3); RBC Red Blood Cell Count 4.69 M/uL (3.86-4.86)
[2023-03-18 22:35] LABS: Albumin 3.4 g/dL (3.4-5.0); Bilirubin Total 0.4 mg/dL (0.2-1.0); Potassium 3.5 mEq/L (3.5-5.1); Protein, Total 7.2 g/dL (6.4-8.2); Thyroid Stimulating Hormone 0.024 uIU/mL (0.358-3.740)
--- NOTE | 2023-03-18 23:09 | ER ---
Nurse's Notes [facility] Name: Janette Cartagena Age: 27 yrs Sex: Female : 1995 Arrival Date: 03/18/2023 Time: 21:09 Bed 7 Private MD: Diagnosis: Thyrotoxicosis;Streptococcal pharyngitis Presentation: 03/18 21:23 Chief complaint: Patient states: "I've had a sore throat for 1 week now. I feel like mb9 I'm swallowing glass. Today my lymph nodes are tender and swollen. I also noticed my HR is really high. I got alerted it was 150 while sitting on the couch earlier". Coronavirus screen: Vaccine status: Patient reports being unvaccinated. Ebola Screen: No symptoms or risks identified at this time. Initial Sepsis Screen: Does the patient meet any 2 criteria? HR > 90 bpm. Does the patient have a suspected source of infection? No. Patient's initial sepsis screen is negative. Risk Assessment: Do you want to hurt yourself or someone else? Patient reports no desire to harm self or others. Onset of symptoms was March 18, 2023. 21:23 Method Of Arrival: Ambulatory mb9 21:23 Acuity: MARY 3 mb9 Triage Assessment: 21:26 General: Appears in no apparent distress. Behavior is cooperative. Pain: Complains of mb9 pain in neck. EENT: Throat is reddened. Cardiovascular: Denies chest pain, palpitations, shortness of breath. Respiratory: Airway is patent. Derm: Skin is pink, warm \\T\\ dry. 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 - Social history:: Smoking status: Patient denies any tobacco usage or history of. - Family history:: not pertinent. Screenin:55 [facility] ED Fall Risk Assessment (Adult) History of falling in the last 3 months, vc1 including since admission No falls in past 3 months (0 pts) Confusion or Disorientation No (0 pts) Intoxicated or Sedated No (0 pts) Impaired Gait No (0 pts) Mobility Assist Device Used No (0 pt) Altered Elimination No (0 pt) Score/Fall Risk Level 0 - 2 = Low Risk Oriented to surroundings, Maintained a safe environment, Educated pt \\T\\ family on fall prevention, incl call for assistance when getting out of bed. Abuse screen: Denies threats or abuse. Nutritional screening: No deficits noted. Tuberculosis screening: No symptoms or risk factors identified. Assessment: 21:58 Reassessment: See triage assessment. vc1 23:00 Reassessment: No changes from previously documented assessment. Patient and/or family vc1 updated on plan of care and expected duration. Pain level reassessed. Patient is alert, oriented x 3, equal unlabored respirations, skin warm/dry/pink. Respiratory: Airway is patent Respiratory effort is even, unlabored, Respiratory pattern is symmetrical, Breath sounds are clear. 23:51 Reassessment: No changes from previously documented assessment. Patient and/or family vc1 updated on plan of care and expected duration. Pain level reassessed. Patient is alert, oriented x 3, equal unlabored respirations, skin warm/dry/pink. Vital Signs: 21:23 BP 160 / 105; Pulse 138; Resp 18; Temp 98.8(O); Pulse Ox 100% on R/A; Weight 89.81 kg; mb9 Height 5 ft. 0 in. ; 21:50 BP 125 / 79; Pulse 129; Pulse Ox 99% ; vc1 22:40 BP 128 / 76; Pulse 118; Resp 18; Pulse Ox 98% ; vc1 23:40 BP 120 / 74; Pulse 112; Resp 18; Pulse Ox 99% ; vc1 21:23 Body Mass Index 38.67 (89.81 kg, 152.4 cm) mb9 ED Course: 21:12 Patient arrived in ED. es 21:18 Harman Elena MD is Attending Physician. rt 21:23 Arm band placed on. mb9 21:25 Triage completed. mb9 21:25 Patient has correct armband on for positive identification. Bed in low position. Call vc1 light in reach. Pulse ox on. NIBP on. 21:50 Inserted saline lock: 20 gauge in right antecubital area, using aseptic technique. vc1 Blood collected. 21:57 T4 Free Sent. vc1 21:57 TSH Sent. vc1 21:57 Magnesium Sent. vc1 21:57 Test, Serum Sent. vc1 21:57 CMP Sent. vc1 21:57 CBC with Diff Sent. vc1 21:57 Strep Sent. vc1 21:57 [place] Screen Profile Sent. vc1 22:05 Chelsey Presley, RN is Primary Nurse. aa9 23:07 Germaine Hay MD is Hospitalizing Provider. rt 03/19 00:18 No provider procedures requiring assistance completed. Patient admitted, IV remains in vc1 place. Administered Medications: 03/18 21:57 Drug: NS 0.9% IV 1000 ml Route: IV; Rate: 1 bolus; Site: right antecubital; vc1 23:00 Follow up: IV Status: Completed infusion; IV Intake: 1000ml vc1 03/19 00:14 Not Given (will get upstairss): Propranolol PO 80 mg PO once vc1 00:14 Drug: MethylPrednisoLONE IVP 125 mg Route: IVP; Site: right antecubital; vc1 00:19 Follow up: Response: Administered at admission vc1 00:15 Drug: Amoxicillin PO 1000 mg {Note: 1000 mg given per MD.} Route: PO; vc1 00:20 Follow up: Response: Administered at admission vc1 00:15 Drug: Ketorolac IVP 15 mg Route: IVP; Site: right antecubital; vc1 00:20 Follow up: Response: Administered at admission vc1 Medication: 03/18 21:56 VIS not applicable for this client. vc1 Intake: 23:00 IV: 1000ml; Total: 1000ml. 1 Outcome: 23:08 Decision to Hospitalize by Provider. rt 03/19 00:18 Admitted to Med/surg accompanied by tech, via wheelchair, room 206, Report called to 1 JEANETTE Santana Condition: good Instructed on the need for admit. 00:50 Patient left the ED. 1 Signatures: Rashmi Ch Vanessa, RN RN 1 Chelsey Presley, JEANETTE RN Danielle Mathur RN RN [email or web address] Harman Elena MD MD rt Corrections: (The following items were deleted from the chart) 03/18 21:42 21:23 BP 160 / 105; Pulse 138bpm; Resp 18bpm; Pulse Ox 100% RA; Temp 98.8F Oral; 89.81 mb9 kg; Height 2 ft. 0 in.; BMI: 241.; mb9 23:13 21:23 Chief complaint: Patient states: "I've had a sore throat for 1 week now. I feel mb9 like I'm swallowing glass. Today my lymph nodes are tender and swollen. I also noticed my HR is really high. I got alerted it was 250 while sitting on the couch earlier" mb9
--- NOTE | 2023-03-18 23:09 | EDPHYS ---
Physician Documentation [facility] Name: Janette Cartagena Age: 27 yrs Sex: Female : 1995 Arrival Date: 03/18/2023 Time: 21:09 Bed 7 Private MD: ED Physician Harman Elena HPI: 03/18 22:30 This 27 yrs old Female presents to ER via Ambulatory with complaints of Sore rt Throat, Palpitations. 22:30 Patient presents to the ED with sore throat for about 1 week. Patient states that pain rt is sharp, but she does not have difficulty swallowing. She states that it is not unilateral. She does report pain overlying her lymph nodes. Patient states that she came in today because her watch told her that her heart rate was going at about 150 bpm. The patient denies any chest pain, shortness of breath, palpitations. She states that she would not know that her heart was beating fast unless her watch told her so. Of note, the patient states that she has poor compliance with her levothyroxine, however, has been taking twice the dose over the past few days in order to catch up. Denies other acute complaints at this time. Symptoms are moderate severity, no other aggravating alleviating factors.. 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 - Social history:: Smoking status: Patient denies any tobacco usage or history of. - Family history:: not pertinent. ROS: 22:30 Constitutional: Negative for fever, chills, and weight loss, Neck: Negative for injury, rt pain, and swelling, Cardiovascular: Negative for chest pain, palpitations, and edema, Respiratory: Negative for shortness of breath, cough, wheezing, and pleuritic chest pain, Abdomen/GI: Negative for abdominal pain, nausea, vomiting, diarrhea, and constipation, Skin: Negative for injury, rash, and discoloration, Neuro: Negative for headache, weakness, numbness, tingling, and seizure, Psych: Negative for depression, anxiety, suicide ideation, homicidal ideation, and hallucinations. 22:30 ENT: Positive for sore throat, Negative for rhinorrhea. Exam: 22:30 Constitutional: This is a well developed, well nourished patient who is awake, alert, rt and in no acute distress. Head/Face: Normocephalic, atraumatic. Chest/axilla: Normal chest wall appearance and motion. Nontender with no deformity. No lesions are appreciated. Cardiovascular: Regular rate and rhythm with a normal S1 and S2. No gallops, murmurs, or rubs. Normal PMI, no JVD. No pulse deficits. Respiratory: Lungs have equal breath sounds bilaterally, clear to auscultation and percussion. No rales, rhonchi or wheezes noted. No increased work of breathing, no retractions or nasal flaring. Abdomen/GI: Soft, non-tender, with normal bowel sounds. No distension or tympany. No guarding or rebound. No evidence of tenderness throughout. Skin: Warm, dry with normal turgor. Normal color with no rashes, no lesions, and no evidence of cellulitis. MS/ Extremity: Pulses equal, no cyanosis. Neurovascular intact. Full, normal range of motion. Neuro: Awake and alert, GCS 15, oriented to person, place, time, and situation. Cranial nerves II-XII grossly intact. Motor strength 5/5 in all extremities. Sensory grossly intact. Cerebellar exam normal. Normal gait. Psych: Awake, alert, with orientation to person, place and time. Behavior, mood, and affect are within normal limits. 22:30 ENT: Posterior pharyngeal erythema, 2+ tonsils, symmetric without exudates, uvula is midline, no stridor, mild effusion without exudates seen on the left TM, right TM is clear.. 23:51 ECG was reviewed by the Attending Physician. rt Vital Signs: 21:23 BP 160 / 105; Pulse 138; Resp 18; Temp 98.8(O); Pulse Ox 100% on R/A; Weight 89.81 kg; mb9 Height 5 ft. 0 in. ; 21:50 BP 125 / 79; Pulse 129; Pulse Ox 99% ; vc1 22:40 BP 128 / 76; Pulse 118; Resp 18; Pulse Ox 98% ; vc1 23:40 BP 120 / 74; Pulse 112; Resp 18; Pulse Ox 99% ; vc1 21:23 Body Mass Index 38.67 (89.81 kg, 152.4 cm) mb9 MDM: 21:26 Patient medically screened. rt 23:52 Differential diagnosis: Strep, mononucleosis, thyrotoxicosis. Data reviewed: vital rt signs, nurses notes. Consideration of Admission/Observation Patient was admitted/placed on observation. Management of patient was discussed with the following: Hospitalist: Agrees to admit. I considered the following discharge prescriptions or medication management in the emergency department Medications were administered in the Emergency Department. See MAR. Test considered but Not performed: CT: Do not suspect RPA, [address] [place] PILOT, Rito's angina, CT scan is not indicated. Care significantly affected by the following chronic conditions: Hypothyroidism. Counseling: I had a detailed discussion with the patient and/or guardian regarding: the historical points, exam findings, and any diagnostic results supporting the discharge/admit diagnosis, lab results, the need for further work-up and treatment in the hospital. 03/18 21:42 Order name: [place] Screen Profile; Complete Time: 22:39 rt 03/18 21:42 Order name: Strep; Complete Time: 22:39 rt 03/18 21:42 Order name: CBC with Diff; Complete Time: 22:39 rt 03/18 21:42 Order name: CMP; Complete Time: 22:39 rt 03/18 21:42 Order name: Test, Serum; Complete Time: 22:39 rt 03/18 21:42 Order name: Magnesium; Complete Time: 22:39 rt 03/18 21:42 Order name: TSH; Complete Time: 22:39 rt 03/18 21:42 Order name: T4 Free; Complete Time: 22:39 rt 03/18 21:42 Order name: EKG; Complete Time: 21:43 rt 03/18 21:42 Order name: EKG - Nurse/Tech; Complete Time: 21:53 rt EC:51 Rate is 120 beats/min. Rhythm is regular, Sinus tachycardia with No ectopy. QRS [place] is rt Normal. ME interval is normal. QRS interval is normal. QT interval is normal. No Q waves. T waves are Normal. No ST changes noted. Interpreted by me. Administered Medications: 21:57 Drug: NS 0.9% IV 1000 ml Route: IV; Rate: 1 bolus; Site: right antecubital; vc1 23:00 Follow up: IV Status: Completed infusion; IV Intake: 1000ml vc1 03/19 00:14 Not Given (will get upstairss): Propranolol PO 80 mg PO once vc1 00:14 Drug: MethylPrednisoLONE IVP 125 mg Route: IVP; Site: right antecubital; vc1 00:19 Follow up: Response: Administered at admission vc1 00:15 Drug: Amoxicillin PO 1000 mg {Note: 1000 mg given per MD.} Route: PO; vc1 00:20 Follow up: Response: Administered at admission vc1 00:15 Drug: Ketorolac IVP 15 mg Route: IVP; Site: right antecubital; vc1 00:20 Follow up: Response: Administered at admission vc1 Disposition Summary: 03/18/23 23:08 Hospitalization Ordered Hospitalization Status: Observation rt Provider: Germaine Hya rt Location: Telemetry/MedSurg (observation) rt Condition: Fair rt Problem: new rt Symptoms: are unchanged rt Bed/Room Type: Standard rt Room Assignment: [facility](03/18/23 23:51) cg Diagnosis - Thyrotoxicosis rt - Streptococcal pharyngitis rt Forms: - Medication Reconciliation Form rt - SBAR form rt Critical care time excluding procedures: 03/18 23:52 Critical care time: Bedside Care: 30 minutes, Consultation: 5 minutes. Total time: 35 rt minutes Signatures: Dispatcher [employer] Ial Hernandez RN RN cg Carol Dennis RN RN vc1 Danielle Fuller PA-C PAKaushik [email or web address] Danielle Bearden RN RN mb9 Harman Elena MD MD rt Corrections: (The following items were deleted from the chart) 23:51 23:08 rt cg
--- NOTE | 2023-03-18 23:54 | P.HP ---
Certification for Inpatient Patient admitted to: Observation With expected LOS: <2 Midnights Patient will require the following post-hospital care: None Practitioner: I am a practitioner with admitting privileges, knowledge of patient current condition, hospital course, and medical plan of care. Services: Services provided to patient in accordance with Admission requirements found in Title 42 Section 412.3 of the Code of Federal Regulations Patient History Date of Service: 03/19/23 Reason for admission: Thyrotoxicosis History of Present Illness: Ms. Cartagena is a 27 year old female with past medical history of hypothyroidism who presented to the emergency department with complaints of sore throat and palpitations. She states that she has been inconsistent with her levothyroxine, she forgets to take it some days then takes double her dose for the next few days. She states that today she noticed her heart rate was in the 150s. She was hypertensive and tachycardic upon arrival to ED. TSH was 2.61 and T4 0.024. She was also strep positive. In the emergency department, she was treated with 125 mg IV solumedrol, 80 mg propranolol, amoxicillin, and ketorolac. Will admit for further management. Allergies No Known Allergies Allergy (Unverified 05/30/21 21:11) Home medications list reviewed: Yes - Past Medical/Surgical History Diabetic: No -: Hypothyroidism Past Surgical History: Patient denies surgical history Psychosocial/ Personal History: Patient lives at home with her significant other. - Family History Family History: Reviewed- Non-Contributory - Social History Smoking Status: Never smoker Alcohol use: No CD- Drugs: No Caffeine use: Yes Place of Residence: Home Review of Systems ENT: Other (Sore Throat) Cardiovascular: Palpitations Physical Examination - Vital Signs Temperature: 98.8 F Blood Pressure: 120/74 Pulse: 112 Respirations: 18 Pulse Ox (%): 99 - Physical Exam General: Alert, In no apparent distress, Obese HEENT: Atraumatic, Other (pharyngeal erythema, 2+ tonsils, no exudate), EOMI, Sclerae nonicteric Neck: Supple, 2+ carotid pulse no bruit Respiratory: Clear to auscultation bilaterally, Normal air movement Cardiovascular: Normal S1 S2, Irregular heart rate/rhythm Gastrointestinal: Normal bowel sounds, No tenderness Musculoskeletal: No tenderness Integumentary: No rashes Neurological: Normal speech, Normal affect - Studies Laboratory Data (last 24 hrs) 03/18/23 21:50: Sodium 139, Potassium 3.5, BUN 13, Creatinine 0.57, Glucose 144 H, Magnesium 2.0, Total Bilirubin 0.4, AST 19, ALT 54, Alkaline Phosphatase 114 03/18/23 21:50: WBC 11.00 H, Hgb 11.6 L, Hct 35.8 L, Plt Count 456 H Microbiology Data (last 24 hrs): 03/18/23 21:50 Throat Group A Streptococcus Rapid Screen - Final Assessment and Plan - Problems (Diagnosis) (1) Thyrotoxicosis Current Visit: Yes Status: Acute Qualifiers: Thyrotoxicosis type: other Thyrotoxic crisis or storm presence: without thyrotoxic crisis or storm Qualified Code(s): E05.80 - Other thyrotoxicosis without thyrotoxic crisis or storm (2) Hypothyroidism Current Visit: Yes Status: Chronic Qualifiers: Hypothyroidism type: unspecified Qualified Code(s): E03.9 - Hypothyroidism, unspecified (3) Strep pharyngitis Current Visit: Yes Status: Acute - Plan Patient is admitted for further management of thyrotoxicosis. Induced by overdosing levothyroxine. Received solumedrol and propranolol in the ED. Anticipate slow improvement in TSH and T4, recheck in morning. Continue propranolol to manage tachycardia & amoxicillin for strep pharyngitis. Discharge Plan: Home Plan to discharge in: 24 Hours - Advance Directives Does patient have a Living Will: No Does patient have a Durable POA for Healthcare: No - Code Status/Comfort Care Code Status Assessed: Yes Code Status: Full Code Physician Review: Patient Assessed, Agree with Above Assessment and Plan Critical Care: No Time Spent Managing Pts Care (In Minutes): 50
[2023-03-19] MEDS ORDERED: PROPRANOLOL HCL 40 MG TAB PO ONE
[2023-03-19] MEDS ORDERED: METHYLPREDNISOLONE 125 MG INJ ONE (00:03)
[2023-03-19] MEDS ORDERED: KETOROLAC 30 MG/ML INJ ONE (00:04)
[2023-03-19] MEDS ORDERED: AMOXICILLIN TRIHYDR 250 MG CAP ONE (00:09)
[2023-03-19] MEDS ORDERED: ACETAMINOPHEN 500 MG TAB PO PRN (00:22)
[2023-03-19] MEDS ORDERED: ONDANSETRON 4 MG/2 ML VIAL IV PRN (00:22)
[2023-03-19] MEDS: NA CHLORIDE 0.9% 1,000 ML IV SCH ×2 (00:48→11:19)
[2023-03-19 00:59] VITALS: BMI 38.3
[2023-03-19 04:39] VITALS: O2SAT 97
[2023-03-19] MEDS ORDERED: POTASSIUM 25 MEQ EFFERV TAB PO ONE (07:00)
--- NOTE | 2023-03-19 07:20 | EKG ---
Test Date: 2023-03-18 Test Time: 21:51:31 Electronic [employer] Supervisor: BRII MEASUREMENT RESULTS: Intervals: Rate: 120 CT: 156 QRSD: 82 QT: 326 QTc: 460 [place]: P: 49 CT: 156 QRS: 44 T: 38 INTERPRETIVE STATEMENTS: Sinus tachycardia Possible Left atrial enlargement Borderline ECG No previous ECG available for comparison Electronically Signed On 03-19-23 07:19:49 CDT by Magan Olivia
[2023-03-19] MEDS ORDERED: POTASSIUM CL SA 10 MEQ TAB PO ONE (09:00)
[2023-03-19] MEDS ORDERED: AMOXICILLIN TRIHYDR 250 MG CAP PO SCH (09:00)
[2023-03-19 12:18] VITALS: BP 113/61; TEMP 97.7
== END 2023-03-19 13:40 | disposition home or self-care (01) ==
LOC: ER 21:09 → 2ND 23:45
PROVIDERS: ADMIT Hospitalist; ATTEND Hospitalist
DX: E05.80 Other thyrotoxicosis without thyrotoxic crisis or storm (principal); J02.0 Streptococcal pharyngitis; E03.9 Hypothyroidism, unspecified; R00.2 Palpitations
CPT/HCPCS: 96361; 93005; 85025; 36415; 83735; 86308; 84703; 87081; 84443 ×2; 84439; 80053; 94760; 96375; 96374; 99285; J7030 ×3; G0378 ×2

== ENCOUNTER 2023-04-01 17:44 | Emergency (ER) | payer OTHER ==
--- OUTSIDE RECORDS SUMMARY | 2023-04-01 17:48 | XMS REPORT | Continuity of Care Document ---
:[address] [facility] t Address [address] [place] [address] [address] [place] [address] Care Team Providers Name Role Phone AMELIE MARCELO Primary Care Physician Unavailable EDITH BAEZA Attending Clinician Unavailable EDITH BAEZA Attending Clinician Unavailable Doctor Unassigned, [place] Attending Clinician Unavailable Umu Kwong MD Attending Clinician AMELIE MARCELO Attending Clinician Unavailable Amelie Kent Attending Clinician [phone] LISA AL Attending Clinician Unavailable Provider, Ang-Rmchp Temp Attending Clinician Unavailable Lisa Jose Attending Clinician SHELL ASHER Attending Clinician Unavailable Camilo Santana MD Attending Clinician Abril MORENO, Rodo Mitchell Attending Clinician Risk, Rsl-Anfox-Ck/High Attending Clinician Unavailable Barbara Camacho Attending Clinician BARBARA STRICKLAND Attending Clinician Unavailable Risk, Pea-Rmchp Provider/High Attending Clinician Unavailabl e Ultrasound, Ang-Mfm Attending Clinician Unavailable Adam Kramer MD Attending Clinician [phone] Lab, Ang-Rmchp Attending Clinician Unavailable Juan Yi MD Attending Clinician UMU KWONG Attending Clinician Unavailable Nichole Al DO Attending Clinician Maia REID, Christine Serrano Attending Clinician Unavailable 1, Pea-Mfm Us Room Attending Clinician Unavailable Wilfred ARIZMENDI, Nasra Long Attending Clinician Lab, Nola Attending Clinician Unavailable Reny MSN, Rachelle Mcallister Attending Clinician Vidal ARIZMENDI, Heriberto Cobb Attending Clinician Faculty, Arnulfo Hernandez Mfm Attending Clinician Unavailable Tate Crews MD Attending Clinician 2, Adc Lab Attending Clinician Unavailable SHELL ASHER Admitting Clinician Unavailable Payers Payer Name Policy Type Policy Number Effective Date Expiration Date Desire WEBSTER [id number] 2016 HEALTH 00:00:00 Problems Condition Condition Condition Status Onset Resolution Last Treating Co mments Source Name Details Category Date Date Treatment Clinician Date Other Other Disease Active 2020-10 Univers general general 2-29 [place] of [place] and [place] and advice 00 [place] dical for [facility] contracept contracept william william management management Refuses Refuses Disease Active 2020-10 Univers tetanus, tetanus, 0-21 ity of diphtheria diphtheria [place] , and , and 00 Medical acellular acellular Bran ch pertussis pertussis (Tdap) (Tdap) vaccinatio vaccinatio n n Hypothyroi Hypothyroi Disease Active U nivers dism in dism in 3-19 ity of 00:00: [address] Obesity Obesity Disease Active Univers (BMI (BMI 3-19 ity of 30-39.9) 30-39.9) 00:00: [address] Allergies, Adverse Reactions, Alerts Allergy Allergy Status Severity Reaction(s) Onset Inactive Treating Comm ents Source Name Type Date Date Clinician NO KNOWN Drug Active [facility] ALLERGIE Class ity of [facility] Social History Social Habit Start Date Stop Date Quantity Comments Source Exposure to 2022-08-24 2022-09-03 Not sure [facility] SARS-CoV-2 00:00:00 14:02:00 [facility] (event) [place] Alcohol intake 2021-10-02 2021-10-02 Current [facility] 00:00:00 00:00:00 non-drinker of [facility] alcohol (finding) [place] Tobacco use and 2017-12-22 2017-12-22 Smokeless tobacco Un iversity of exposure 00:00:00 00:00:00 non-user [facility] Sex Assigned At [birth year] Universit y of 00:00:00 00:00:00 [facility] Smoking Status Start Date Stop Date Source Never smoked tobacco [facility] Medications Ordered Filled Start Stop Current Ordering Indication Dosage Frequency Signature Comments Components Source Medication Medication Date Date Medication? Clinician (SIG) Name Name levothyroxi Yes [id number] 224ug Take 2 Univers ne 112 mcg 5-17 tablets by ity of tablet 00:00: mouth [place] 00 every Medical morning. [place] levothyroxi 2021-10 Yes [id number] 224ug Take 2 Univers ne 112 mcg 1-30 tablets by ity of tablet 00:00: mouth [place] 00 every Medical morning. [place] levothyroxi 2021-10 Yes [id number] 224ug Take 2 Univers ne 112 mcg 1-30 tablets by ity of tablet 00:00: mouth [place] 00 every Medical morning. [place] levothyroxi 2021-10 Yes [id number] 224ug Take 2 Univers ne 112 mcg 1-30 tablets by ity of tablet 00:00: mouth [place] 00 every Medical morning. [place] levothyroxi 2021-10- No [id number] 224ug Take 2 Univers ne 112 mcg 1-30 05-17 tablets by it y of tablet 00:00: 00:00 mouth [place] 00 :00 every Medical morning. [place] triamcinolo 2020-10 Yes [id number] Apply to Univers ne 2-02 area(s) 2 ity of acetonide 00:00: (two) [place] 0.1 % 00 times Medical ointment daily. Branch triamcinolo 2020-10 Yes [id number] Apply to Univers ne 2-02 area(s) 2 ity of acetonide 00:00: (two) [place] 0.1 % 00 times Medical ointment daily. Branch triamcinolo 2020-10 Yes [id number] Apply to Univers ne 2-02 area(s) 2 ity of acetonide 00:00: (two) [place] 0.1 % 00 times Medical ointment daily. [place] triamcinolo 2020-10 Yes [id number] Apply to Univers ne 2-02 area(s) 2 ity of acetonide 00:00: (two) [place] 0.1 % 00 times Medical ointment daily. Allan austin 2020-10 Yes [id number] [facility] 2-02 area(s) 2 ity of acetonide 00:00: (two) [place] 0.1 % 00 times Medical ointment daily. [facility]-10 Yes [id number] [facility] 2-02 area(s) 2 ity of acetonide 00:00: (two) [place] 0.1 % 00 times Medical ointment daily. [facility] 2020-10 Yes [id number] [facility] to [facility] 2-02 area(s) 2 ity of acetonide 00:00: (two) [place] 0.1 % 00 times Medical ointment daily. Allan austin 2020-10 Yes [id number] Apply to [facility] 2-02 area(s) 2 ity of acetonide 00:00: (two) [place] 0.1 % 00 times Medical ointment daily. [facility] 2020-10 Yes [id number] Apply to [facility] 2-02 area(s) 2 ity of acetonide 00:00: (two) [place] 0.1 % 00 times Medical ointment daily. Allan austin 2020-10 Yes [id number] Apply to [facility] 2-02 area(s) 2 ity of acetonide 00:00: (two) [place] 0.1 % 00 times Medical ointment daily. [facility] 2020-10 Yes [id number] Apply to [facility] 2-02 area(s) 2 ity of acetonide 00:00: (two) [place] 0.1 % 00 times Medical ointment daily. Branch 2020-10- No [id number] 1{tbl} Take 1 Univers [id number] 10-16 tablet by it y of fum-folic 00:00: 00:00 mouth [place] () 00 :00 daily. Medical 27 mg iron- [place] 1 mg Tab docusate 2020-10- No [id number] 240mg Take 1 [facility] calcium 240 10-16- capsule by i ty of mg capsule 00:00: 00:00 mouth once [place] 00 :00 daily as Medical needed for Branch Constipati on. ferrous 2020-10- No [id number] 325mg Take 1 U nivers sulfate 325 10-16 tablet by it y of mg (65 mg 00:00: 00:00 [place] iron) 00 :00 (two) Medical tablet times Branch daily. ibuprofen 2020-10- No [id number] 600mg Take 1 Univers 600 mg 10-16 tablet by ity of tablet 00:00: 00:00 mouth [place] 00 :00 every 6 Medical (six) Branch hours as needed (Pain). Take with food or milk. pantoprazol 2020- No [id number] 40mg Take 1 Univers e 05-01 tablet by ity of (PROTONIX) 00:00: 00:00 mouth [place] 40 mg EC 00 :00 daily. Medical tablet Branch levothyroxi Yes [id number] 250ug Take 2 Univers ne 125 mcg 6-23 tablets by ity of tablet 00:00: mouth [place] 00 every Medical morning. Branch levothyroxi Yes [id number] 250ug Take 2 Univers ne 125 mcg 6-23 tablets by ity of tablet 00:00: mouth [place] 00 every Medical morning. Branch levothyroxi Yes [id number] 250ug Take 2 Univers ne 125 mcg 6-23 tablets by ity of tablet 00:00: mouth [place] 00 every Medical morning. Branch levothyroxi 2021- No [id number] 250ug Take 2 Univers ne 125 mcg 6-23 11-30 tablets by it y of tablet 00:00: 00:00 mouth [place] 00 :00 every Medical morning. Branch levothyroxi 2021- No [id number] 250ug Take 2 Univers ne 125 mcg 6-23 11-30 tablets by it y of tablet 00:00: 00:00 mouth [place] 00 :00 every Medical morning. Branch Immunizations Ordered Filled Immunization Date Status Comments [facility] e Immunization Name Name HPV9 2018-08-16 Completed University of 00:00:00 [facility] HPV9 2018-08-16 Completed University of 00:00:00 [facility] HPV9 2018-08-16 Completed University of 00:00:00 [facility] HPV9 2018-08-16 Completed University of 00:00:00 [facility] HPV9 2018-08-16 Completed University of 00:00:00 [facility] HPV9 2018-08-16 Completed University of 00:00:00 [facility] HPV9 2018-08-16 Completed University of 00:00:00 [place] [facility] HPV9 2018-08-16 Completed University of 00:00:00 [place] [facility] HPV9 2018-08-16 Completed University of 00:00:00 [place] [facility] HPV9 2018-08-16 Completed University of 00:00:00 [place] [facility] HPV9 2018-08-16 Completed University of 00:00:00 [place] [facility] HPV9 2017-12-22 Completed University of 00:00:00 [place] [facility] HPV9 2017-12-22 Completed University of 00:00:00 [place] [facility] HPV9 2017-12-22 Completed University of 00:00:00 [place] [facility] HPV9 2017-12-22 Completed University of 00:00:00 [place] [facility] HPV9 2017-12-22 Completed University of 00:00:00 [place] [facility] HPV9 2017-12-22 Completed University of 00:00:00 [place] [facility] HPV9 2017-12-22 Completed University of 00:00:00 [place] [facility] HPV9 2017-12-22 Completed University of 00:00:00 [place] [facility] HPV9 2017-12-22 Completed University of 00:00:00 [place] [facility] HPV9 2017-12-22 Completed University of 00:00:00 [place] [facility] HPV9 2017-12-22 Completed University of 00:00:00 [facility] Branch HPV9 2017-11-12 Completed University of 00:00:00 [facility] Branch HPV9 2017-11-12 Completed University of 00:00:00 [place] [facility] HPV9 2017-11-12 Completed University of 00:00:00 [place] [facility] HPV9 2017-11-12 Completed University of 00:00:00 [place] [facility] HPV9 2017-11-12 Completed University of 00:00:00 [place] [facility] HPV9 2017-11-12 Completed University of 00:00:00 [place] [facility] HPV9 2017-11-12 Completed University of 00:00:00 [facility] Branch HPV9 2017-11-12 Completed University of 00:00:00 [place] [facility] HPV9 2017-11-12 Completed University of 00:00:00 [place] [facility] HPV9 2017-11-12 Completed University of 00:00:00 [facility] HPV9 2017-11-12 Completed University 00:00:00 [facility] Vital Signs Vital Name Observation Time Observation Value Comments Source Systolic blood 2022-09-03 20:05:00 101 mm[Hg] Univer sity of pressure [facility] Diastolic blood 2022-09-03 20:05:00 70 mm[Hg] Unive rsity of pressure [facility] Heart rate 2022-09-03 20:05:00 81 /min Universi ty of [facility] Body weight 2022-09-03 20:05:00 88.043 kg Universi ty of [facility] BMI 2022-09-03 20:05:00 37.91 kg/m2 Universi ty [facility] Oxygen saturation in 2022-09-03 20:05:00 97 /min [facility] Arterial blood by [facility] Pulse oximetry Branch Systolic blood 2021-10-02 16:40:00 108 mm[Hg] Univer sity of pressure [facility] Diastolic blood 2021-10-02 16:40:00 74 mm[Hg] Unive rsity of [facility] Heart rate 2021-10-02 16:40:00 68 /min Universi ty [facility] Body temperature 2021-10-02 16:40:00 36.17 [facility] rate 2021-10-02 16:40:00 20 /min [facility] Body height 2021-10-02 16:40:00 152.4 cm Universi ty [facility] Body weight 2021-10-02 16:40:00 87.363 kg Universi ty [facility] BMI 2021-10-02 16:40:00 37.61 kg/m2 [facility] Procedures Procedure Date / Time Performed Performing Clinician [facility] e ASSIGNMENT OF BENEFITS 2022-09-03 20:03:31 Doctor Unassigned, No [facility] Branch Encounters Start End Encounter Admission Attending Care Care Encounter Source Date/Time Date/Time Type Type Clinicians Facility Department ID 2021-08-05 Emergency [facility] [id number] Univers 17:42:48 ity of [facility] 2023-02-18 2023-02-18 RefEdith Monae [facility] 1.2.840.114 [id number] Univers 00:00:00 00:00:00 HEALTH 350.1.13.10 it y of [place] 4.2.7.2.686 Aramis as TEE?BLEA [id number] [address] MEDICAL OFFICE [facility] 2023-02-17 2023-02-17 Telephone Edith Baeza [facility] [id number] Univers 00:00:00 00:00:00 HEALTH 350.1.13.10 it y of [place] 4.2.7.2.686 Aramis as TEE?BLEA [id number] [address] OFFICE [facility] 2023-01-05 2023-01-05 Outpatient R EDITH BAEZA [facility] [id number] Univers 16:00:00 16:00:00 EDITH BAEZA [facility] 2023-01-05 2023-01-05 Telephone Ciara Sharma [facility] [id number] Univers 00:00:00 00:00:00 HEALTH 350.1.13.10 it y of [place] 4.2.7.2.686 Aramis as TEE?BLEA [id number] [address] OFFICE [facility] 2022-09-03 2022-09-03 Outpatient R EDITH BAEZA [facility] [id number] Univers 14:00:00 14:36:53 EDITH BAEZA [facility] 2022-09-03 2022-09-03 Office Ciara Sharma [facility] 1.2.840.114 [id number] Univers 14:00:00 14:36:53 Visit HEALTH 350.1.13.10 it y of [place] 4.2.7.2.686 Aramis as TEE?BLEA [id number] [address] MEDICAL OFFICE [facility] 2022-09-03 2022-09-03 Orders Doctor PAYAL 1.2.840.114 [id number] Univers 00:00:00 00:00:00 Only Unassigned, CUATE 350.1.13.10 ity of [place] [facility] 4.2.7.2.686 Aramis as [id number] [address] 2022-08-20 2022-08-20 [facility] [id number] [id number] Univers 00:00:00 00:00:00 [facility] 350.1.13.10 it y [facility] 4.2.7.2.686 Aramis as TEE?BLEA [id number] [place] bertha WARREN [address] [place] [address] MEDICAL OFFICE BUILDING 2021-10-02 2021-10-02 Outpatient R FOZIA [facility] [id number] Univers 10:30:00 11:19:30 AMELIE ity o f [facility] 2021-10-02 2021-10-02 Office [facility] [id number] [id number] Univers 10:30:00 11:19:30 Visit Amelie Sumner CABLE LAYER 350.1.13.10 ity of [facility] 4.2.7.2.686 Aramis as MATERNAL [id number] Med ical & CHILD [address] [place] [address] 2021-09-05 2021-09-05 [facility] [id number] Univers 13:45:00 14:29:29 LISA hamilton [facility] 2021-09-05 2021-09-05 Routine Provider, [facility] 1 .2.840.114 [id number] Univers 13:43:40 14:29:29 Lisa Al CABLE LAYER 350.1.13.10 ity of Visit [facility] 4.2.7.2.686 Aramis as MATERNAL [id number] [facility] & [address] 2021-08-19 2021-08-19 Outpatient P [facility] [id number] Univers 11:30:00 11:30:00 ity [facility] 2021-08-14 2021-08-16 Inpatient P ROYCE [facility] EMMA [id number] Univers 09:34:00 15:31:00 SHELL ity [facility] 2021-08-14 2021-08-16 [facility] PAYAL Asher 1.2.840.114 [id number] Univers 09:34:00 15:31:00 Encounter Shell CUELLO 350.1.13.10 ity of HOSPITAL 4.2.7.2.686 Aramis as [id number] [facility] 133 [place] 2021-08-14 2021-08-15 Anesthesia Camilo Santana 1.2.840.1 [id number] Univers 22:35:00 08:10:00 Event Abril Rodo Paula CUELLO 350.1.13.10 ity of [facility] 4.2.7.2.686 Aramis as [id number] [facility] 132 Branch 2021-08-08 2021-08-08 Routine Risk, Iap-Chpbq-Om/High [facility] 1. 2.840.114 [id number] Univers 13:17:44 14:48:40 Barbara Strickland CABLE LAYER 350.1.13.10 ity of Visit REGIONAL 4.2.7.2.686 Aramis as MATERNAL [id number] Med ical & CHILD [address] [place] [address] 2021-08-08 2021-08-08 Outpatient Rafael STRICKLAND [facility] [id number] Univers 13:15:00 14:48:40 BARBARA hamilton [facility] 2021-08-02 2021-08-02 Routine Risk, Pea-Rmchp Provider/High [facility] 1.2.840.114 [id number] Univers 13:14:26 13:58:22 Barbara Strickland CABLE LAYER 350.1.13.10 ity of Visit REGIONAL 4.2.7.2.686 Aramis as MATERNAL [id number] Med ical & CHILD [address] [place] [address] 2021-08-02 2021-08-02 Outpatient Rafael STRICKLAND [facility] [id number] Univers 13:00:00 13:58:22 BARBARA haimlton [facility] 2021-07-26 2021-07-26 Telephone [facility] 1.2.840.114 [id number] Univers 00:00:00 00:00:00 Lisa Avalos CABLE LAYER 350.1.13.10 it y of REGIONAL 4.2.7.2.686 Aramis as MATERNAL [id number] Med ical & CHILD [address] [place] [address] 2021-07-25 2021-07-25 Routine [facility] 1.2.290.705 [id number] Univers 08:41:57 09:11:37 Lisa N CABLE LAYER 350.1.13.10 i ty of Visit [facility] 4.2.7.2.686 Aramis as MATERNAL [id number] [facility] & [address] 2021-07-25 2021-07-25 Outpatient R MIKAELA [facility] [id number] Univers 09:00:00 09:00:00 LISA sascha [facility] 2021-07-23 2021-07-23 Director Field Services Ultrasound, [facility] 1.2 .840.114 [id number] Univers 11:31:17 12:01:17 Visit Adam Kramer Soledad CABLE LAYER 350.1. 13.10 ity of [facility] 4.2.7.2.686 Aramis as MATERNAL [id number] [facility] & [address] 2021-07-23 2021-07-23 Outpatient P [facility] [id number] Univers 11:30:00 11:30:00 [facility] 2021-07-19 2021-07-19 [facility]ine [facility] [id number] Univers 10:54:44 11:09:44 Lisa N CABLE LAYER 350.1.13.10 i ty of Visit REGIONAL 4.2.7.2.686 Aramis as MATERNAL [id number] [address] 2021-07-19 2021-07-19 Outpatient R MIKAELA [facility] [id number] Univers 11:00:00 11:00:00 LISA hamilton [facility] 2021-07-10 2021-07-10 Outpatient R FOZIA [facility] [id number] Univers 10:00:00 10:00:00 AMELIE handley [facility] 2021-06-26 2021-06-26 Outpatient R FOZIA [facility] [id number] Univers 15:45:00 15:45:00 AMELIE handley [facility] 2021-06-26 2021-06-26 Out[facility] [id number] Univers 13:00:00 13:00:00 AMELIE ity o f [facility] 2021-06-25 2021-06-25 Telephone [facility] 1.2.840.114 [id number] Univers 00:00:00 00:00:00 Amelie C CABLE LAYER 350.1.13.10 ity of REGIONAL 4.2.7.2.686 Aramis as MATERNAL [id number] [facility] ical & CHILD [address] [place] [address] 2021-06-14 2021-06-14 Director Field Services Lab, [facility] 1.2.840. 114 [id number] Univers 08:01:57 08:18:19 Visit Amelie Marcelo C CABLE LAYER 350.1.13. 10 ity of REGIONAL 4.2.7.2.686 Aramis as MATERNAL [id number] [facility] & [address] 2021-06-14 2021-06-14 Director Field Services Lab, [facility] 1.2.840. 114 [id number] Univers 08:01:57 08:18:19 Visit Amelie Marcelo C CABLE LAYER 350.1.13. 10 ity of REGIONAL 4.2.7.2.686 Aramis as MATERNAL [id number] [facility] & [address] 2021-06-14 2021-06-14 Outpatient R [facility] [id number] Univers 08:00:00 08:00:00 ity of [facility] 2021-06-12 2021-06-12 Abstract [facility] 1.2.840.114 [id number] Univers 00:00:00 00:00:00 Amelie C CABLE LAYER 350.1.13.10 ity of REGIONAL 4.2.7.2.686 Aramis as MATERNAL [id number] [facility] & [address] 2021-06-12 2021-06-12 Abstract Fozia [facility] 1.2.840.114 [id number] Univers 00:00:00 00:00:00 Amelie C CABLE LAYER 350.1.13.10 ity of REGIONAL 4.2.7.2.686 Aramis as MATERNAL [id number] [facility] & CHILD [address] [place] [address] 2021-06-11 2021-06-11 Office Fozia, [facility] [id number] Univers 15:42:11 16:50:01 Visit Amelie C CABLE LAYER 350.1.13.10 ity of REGIONAL 4.2.7.2.686 Aramis as MATERNAL [id number] [facility] & CHILD [address] [place] [address] 2021-06-11 2021-06-11 Office Akinpe, [facility] [id number] Univers 15:42:11 16:50:01 Visit Amelie C CABLE LAYER 350.1.13.10 ity of REGIONAL 4.2.7.2.686 Aramis as MATERNAL [id number] [address] 2021-06-11 2021-06-11 Outpatient R FOZIA [facility] [id number] Univers 16:00:00 16:00:00 AMELIE ity o f [facility] 2021-06-11 2021-06-11 Director Field Services Ultrasound, [facility] 1.2 .840.114 [id number] Univers 15:15:20 15:40:12 Visit Juan Yi CABLE LAYER 350.1.13.10 ity of REGIONAL 4.2.7.2.686 Aramis as MATERNAL [id number] [facility] & CHILD [address] [place] [address] 2021-06-11 2021-06-11 Director Field Services Ultrasound, [facility] 1.2 .840.114 [id number] Univers 15:15:20 15:40:12 Visit Juan Yi CABLE LAYER 350.1.13.10 ity of REGIONAL 4.2.7.2.686 Aramis as MATERNAL [id number] [facility] & CHILD [address] [place] [address] 2021-05-29 2021-05-29 Outpatient P [facility] [id number] Univers 09:00:00 09:00:00 ity of [facility] 2021-05-29 2021-05-29 Telephone [place], [facility] 1.2.840.114 [id number] Univers 00:00:00 00:00:00 Amelie C CABLE LAYER 350.1.13.10 ity of [facility] 4.2.7.2.686 Aramis as MATERNAL [id number] [facility] & [address] 2021-05-29 2021-05-29 Telephone [facility] 1.2.840.114 [id number] Univers 00:00:00 00:00:00 Amelie C CABLE LAYER 350.1.13.10 ity of [facility] 4.2.7.2.686 Aramis as MATERNAL [id number] [facility] & [address] 2021-05-28 2021-05-28 Outpatient R VARGHESE [facility] [id number] Univers 15:00:00 15:00:00 WENTONG ity of [facility] 2021-05-28 2021-05-28 Emergency [facility] 1.2.840.114 [id number] Univers 11:53:00 13:04:00 Nichole Juárez 350.1.13.10 ity of [place] 4.2.7.2.686 [facility] [id number] [address] 2021-05-28 2021-05-28 Emergency [facility] 1.2.840.114 [id number] Univers 11:53:00 13:04:00 Nichole Juárez 350.1.13.10 ity of [place] 4.2.7.2.686 [facility] [id number] [place] 731194 [place] 2021-05-28 2021-05-28 Orders Doctor MOE 1.2.840.114 [id number] Univers 00:00:00 00:00:00 Only Unassigned, CUATE 350.1.13.10 ity of [place] [facility] 4.2.7.2.686 Aramis as [id number] [address] 2021-05-28 2021-05-28 Nurse PAYAL Carvalho 1.2.840.114 [id number] Univers 00:00:00 00:00:00 Triage Christine CUELLO 350.1.13.10 it y of HOSPITAL 4.2.7.2.686 Aramis as [id number] [facility] 019 [place] 2021-05-28 2021-05-28 Orders Doctor PAYAL 1.2.840.114 [id number] Univers 00:00:00 00:00:00 Only Unassigned, CUATE 350.1.13.10 ity of [place] [facility] 4.2.7.2.686 Aramis as [id number] [facility] [address] 2021-05-28 2021-05-28 Nurse PAYAL Carvalho 1.2.840.114 [id number] Univers 00:00:00 00:00:00 Triage Christine CUELLO 350.1.13.10 it y of HOSPITAL 4.2.7.2.686 Aramis as [phone] [address] 2021-05-22 2021-05-22 Telephone Risk, [facility] 1.2.870.077 [id number] Univers 00:00:00 00:00:00 Ang-Rmchp-N CABLE LAYER 350.1.13.10 ity of p/High REGIONAL 4.2.7.2.686 Aramis as MATERNAL [phone] Med ical & CHILD [address] [place] [address] 2021-05-15 2021-05-15 Outpatient R [facility] [id number] Univers 08:00:00 08:00:00 ity of [facility] 2021-05-01 2021-05-01 Routine Risk, Ojq-Rrkfl-Fr/High [facility] 1. 2.840.114 [id number] Univers 10:00:17 11:16:35 Barbara Strickland CABLE LAYER 350.1.13.10 ity of Visit REGIONAL 4.2.7.2.686 Aramis as MATERNAL [phone] [facility] ical & CHILD [address] [place] [address] 2021-05-01 2021-05-01 Routine Risk, Nqn-Sxcqg-Fe/High [facility] 1. 2.840.114 [id number] Univers 10:00:17 11:16:35 Barbara Strickland CABLE LAYER 350.1.13.10 ity of Visit REGIONAL 4.2.7.2.686 Aramis as MATERNAL [phone] [facility] & [facility] 2021-05-01 2021-05-01 Outpatient R [facility] [id number] Univers 10:00:00 10:00:00 ity of [facility] 2021-05-01 2021-05-01 [facility] 1.2.840.114 [id number] Univers 00:00:00 00:00:00 Amelie C CABLE LAYER 350.1.13.10 ity of REGIONAL 4.2.7.2.686 Aramis as MATERNAL [phone] [facility] & CHILD [address] [place] [address] 2021-04-30 2021-04-30 Director Field Services [facility] Room [facility] 1.2. 840.114 [id number] Univers 09:16:39 10:11:40 Visit Juan Yi CABLE LAYER 350.1.13.10 ity of REGIONAL 4.2.7.2.686 Aramis as MATERNAL [phone] [facility] ical & CHILD [address] [facility] 2021-04-30 2021-04-30 Outpatient P [facility] [id number] Univers 09:15:00 09:15:00 [facility]-04-24 2021-04-24 [facility] 1.2.838.352 [id number] Univers 10:59:03 11:40:06 Amelie Sumner CABLE LAYER 350.1.13.10 ity of Visit REGIONAL 4.2.7.2.686 Aramis as MATERNAL [phone] [facility] & CHILD [address] [place] [address] 2021-04-24 2021-04-24 [facility] [id number] Univers 10:45:00 10:45:00 AMELIE hamilton o f [facility] 2021-04-17 2021-04-17 Outpatient R [facility] [id number] Univers 11:45:00 11:45:00 ity of [facility] 2021-04-01 2021-04-01 Outpatient P [facility] [id number] Univers 13:00:00 13:00:00 ity of [facility] 2021-03-28 2021-03-28 Routine Risk, Bbu-Ojbnq-Gd/High [facility] 1. 2.840.114 [id number] Univers 15:18:18 16:30:10 StricklandBarbara holbrook James CABLE LAYER 350.1.13.10 ity of Visit [facility] 4.2.7.2.686 Aramis as MATERNAL [phone] [facility] & CHILD [address] [place] [address] 2021-03-28 2021-03-28 Outpatient R [facility] [id number] Univers 15:30:00 15:30:00 [facility] 2021-03-28 2021-03-28 Telephone [facility] 1.2.840.114 [id number] Univers 00:00:00 00:00:00 Amelie C CABLE LAYER 350.1.13.10 ity of [facility] 4.2.7.2.686 Aramis as MATERNAL [phone] [address] 2021-03-27 2021-03-27 Office [facility] 1.2.840.114 [id number] Univers 10:55:16 12:03:38 Visit [facility] 350.1.13.10 i [facility] [place].7.2.[place] [phone] [place] dic[address] 2021-03-27 2021-03-27 Outpatient R VARGHESE [facility] [id number] Univers 11:00:00 11:00:00 [facility] 2021-03-26 2021-03-26 Telephone [facility] 1.2.840.114 [id number] Univers 00:00:00 00:00:00 Amelie C CABLE LAYER 350.1.13.10 ity of REGIONAL 4.2.7.2.686 Aramis as MATERNAL [phone] [address] 2021-03-25 2021-03-25 Routine Fozia [facility] 1.2.786.740 [id number] Univers 15:43:37 16:22:05 Amelie C CABLE LAYER 350.1.13.10 ity of Visit REGIONAL 4.2.7.2.686 Aramis as MATERNAL [phone] [facility] & CHILD [address] [place] [address] 2021-03-25 2021-03-25 Outpatient R FOZIA [facility] [id number] Univers 15:45:00 15:45:00 AMELIE hamilton o f [facility] 2021-03-20 2021-03-20 Out[facility] [id number] Univers 11:00:00 11:00:00 AMELIE hamilton o f [facility] 2021-02-25 2021-02-25 Telephone [facility] 1.2.840.114 [id number] Univers 00:00:00 00:00:00 Amelie C CABLE LAYER 350.1.13.10 ity of REGIONAL 4.2.7.2.686 Aramis as MATERNAL [phone] [address] 2021-02-20 2021-02-20 Routine [facility] 1.2.812.307 [id number] Univers 09:11:06 09:54:25 Amelie C CABLE LAYER 350.1.13.10 ity of Visit REGIONAL 4.2.7.2.686 Aramis as MATERNAL [phone] [address] 2021-02-20 2021-02-20 [facility] [id number] Univers 09:00:00 09:00:00 AMELIE brandony o emmanuelle [facility] 2021-02-15 2021-02-15 Abstract [facility] 1.2.840.114 [id number] Univers 00:00:00 00:00:00 Amelie C CABLE LAYER 350.1.13.10 ity of REGIONAL 4.2.7.2.686 Aramis as MATERNAL [phone] [facility] & [address] 2021-02-14 2021-02-14 Director Field Services 1Davidson Room [facility] 1.2. 840.114 [id number] Univers 13:28:11 14:13:11 Visit Nasra Hardin CABLE LAYER 350.1.13.10 ity of REGIONAL 4.2.7.2.686 Aramis as MATERNAL [phone] [facility] & CHILD [address] [facility] 2021-02-14 2021-02-14 Director Field Services Lab, [facility] 1.2.840. 114 [id number] Univers 13:28:49 14:03:13 Visit Rachelle Oglesby CABLE LAYER 350.1.13.10 ity of REGIONAL 4.2.7.2.686 Aramis as MATERNAL [phone] [facility] & CHILD [address] [place] [address] 2021-02-14 2021-02-14 Outpatient P [facility] [id number] Univers 13:30:00 13:30:00 ity of [facility] 2021-01-26 2021-01-26 Telephone Heriberto Drake 1.2.840.114 [id number] Univers 00:00:00 00:00:00 Jordyn CUELLO 350.1.13.10 i ty of [facility] 4.2.7.2.686 Aramis as [phone] [address] 2021-01-23 2021-01-23 Telephone [facility] 1.2.840.114 [id number] Univers 00:00:00 00:00:00 Amelie Sumner CABLE LAYER 350.1.13.10 ity of [facility] 4.2.7.2.686 Aramis as MATERNAL [phone] [facility] & CHILD [address] [place] [address] 2021-01-22 2021-01-22 Routine [facility] 1.2.161.262 [id number] Univers 12:54:41 13:42:54 Amelie C CABLE LAYER 350.1.13.10 ity of Visit [facility] 4.2.7.2.686 Aramis as MATERNAL [phone] [facility] & CHILD [address] [place] [address] 2021-01-22 2021-01-22 Outpatient R FOZIA [facility] [id number] Univers 13:00:00 13:00:00 AMELIE ity o f [facility] 2021-01-212021-01-21 Telemedici Faculty, Arnulfo Hernandez [facility] 1.2.840.114 [id number] Univers 07:44:17 10:22:11 ne Visit Tate Crews CABLE LAYER 350.1.13.10 ity of [facility] 4.2.7.2.686 Aramis as MATERNAL [phone] [facility] & CHILD [address] [place] [address] 2021-01-21 2021-01-21 Outpatient R [facility] [id number] Univers 10:00:00 10:00:00 ity [facility] 2021-01-18 2021-01-18 Telephone Cataneida [facility] 1.2.840.114 [id number] Univers 00:00:00 00:00:00 Amelie Sumner CABLE LAYER 350.1.13.10 ity of [facility] 4.2.7.2.686 Aramis as MATERNAL [phone] [facility] & CHILD [address] [place] [address] 2021-01-11 2021-01-11 Abstract Fozia [facility] 1.2.840.114 [id number] Univers 00:00:00 00:00:00 Amelie Sumner CABLE LAYER 350.1.13.10 ity of [facility] 4.2.7.2.686 Aramis as MATERNAL [phone] [facility] & CHILD [address] [place] [address] 2021-01-10 2021-01-10 Director Field Services [facility] 1.2. 840.114 [id number] Univers 15:34:19 16:01:23 Visit Nasra Hardin CABLE LAYER 350.1.13.10 ity of [facility] 4.2.7.2.686 Aramis as MATERNAL [phone] [facility] & CHILD [address] [facility] 2021-01-10 2021-01-10 Outpatient P [facility] [id number] Univers 15:30:00 15:30:00 ity [facility] 2020-12-28 2020-12-28 Director Field Services Lab, [facility] 1.2.840. 114 [id number] Univers 07:59:57 08:19:00 Visit Akinsipe, Amelie C CABLE LAYER 350.1.13. 10 ity of REGIONAL 4.2.7.2.686 Aramis as MATERNAL [phone] [facility] & CHILD [address] [place] [address] 2020-12-28 2020-12-28 Outpatient R FOZIA [facility] [id number] Univers 08:00:00 08:00:00 AMELIE ity o f [facility] 2020-12-26 2020-12-26 Telephone [facility] 1.2.840.114 [id number] Univers 00:00:00 00:00:00 Amelie C CABLE LAYER 350.1.13.10 ity of REGIONAL 4.2.7.2.686 Aramis as MATERNAL [phone] [facility] CHILD [address] [place] [address] 2020-12-24 2020-12-24 Telephone [facility] 1.2.840.114 [id number] Univers 00:00:00 00:00:00 Amelie C CABLE LAYER 350.1.13.10 ity of REGIONAL 4.2.7.2.686 Aramis as MATERNAL [phone] [facility] & CHILD [address] [place] [address] 2020-12-21 2020-12-21 Initial [facility] 1.2.626.892 [id number] Univers 08:27:48 09:49:43 Amelie C CABLE LAYER 350.1.13.10 ity of Visit REGIONAL 4.2.7.2.686 Aramis as MATERNAL [phone] [facility] & CHILD [address] [place] [address] 2020-12-21 2020-12-21 Outpatient R [facility] [id number] Univers 08:30:00 08:30:00 AMELIE ity o f [facility] 2020-10-12 2020-10-12 Telephone [facility] 1.2.593.515 [id number] Univers 00:00:00 00:00:00 Wentong MULTISPEC 350.1.13.10 [place] [phone] [address] [facility] 2020-10-03 2020-10-03 Director Field Services 2, Adc Lab [facility] 1.2.840.114 [id number] Univers 09:34:16 09:49:16 Visit Varghese Saleemdominick Juárez 350.1.13.10 ity of [place] [phone] [place] dical nal [address] [facility] 2020-10-03 2020-10-03 Outpatient R [facility] [id number] Univers 09:30:00 09:30:00 ity [facility] 2020 2020 Office [facility] 1.2.840.114 [id number] Univers 13:14:36 13:56:24 Visit Umu Juárez 350.1.13.10 i ty of [place].2.[place] [phone] [facility] [address] [facility] 2020 2020 Outpatient [facility] [id number] Univers 11:30:00 11:30:00 SALEEMONG ity [facility] 2020-08-01 2020-08-01 Telephone [facility] [id number] [id number] Univers 00:00:00 00:00:00 Umu Juárez 350.1.13.10 i ty of [place]2.7.2.[place] [phone] [place] dical nal [address] [facility] 2020-07-24 2020-07-24 Director Field Services 2, Adc Lab [facility] 1.2.840.114 [id number] Univers 08:19:08 08:34:08 Visit Varghese Saleemdominick Juárez 350.1.13.10 ity of [place].7.2.[place] [phone] Il dical nal [address] [facility] 2020-07-24 2020-07-24 Outpatient R [facility] [id number] Univers 08:00:00 08:00:00 ity [facility] 2020-06-26 2020-06-26 Office [facility] 1.2.840.114 [id number] Univers 08:30:53 08:58:41 Visit Saleemdominick Juárez 350.1.13.10 i ty of [place]2.7.2.[place] [phone] Il dical nal [address] [facility] 2020-06-26 2020-06-26 Outpatient R VARGHESE [facility] [id number] Univers 08:30:00 08:30:00 [facility] 2019-12-21 2019-12-21 Office [facility] 1.2.840.114 [id number] Univers 10:32:48 11:01:37 [facility] 350.1.13.10 i ty of [place].2.[place] [phone] [place] dical [place]al [address] [place] [address] 2019-12-21 2019-12-21 Outpatient R VARGHESE [facility] [id number] Univers 10:30:00 10:30:00 [facility] 2019-12-21 2019-12-21 Orders Doctor PAYAL 1.2.840.114 [id number] Univers 00:00:00 00:00:00 Only Unassigned, CUATE 350.1.13.10 ity of [facility] 4.2.7.2.686 Aramis as [phone] [place] [address] [address] 2019-12-21 2019-12-21 Letter Doctor PAYAL 1.2.840.114 [id number] Univers 00:00:00 00:00:00 (Out) Unassigned, CUATE 350.1.13.10 ity of [facility] 4.2.7.2.686 Aramis as [phone] [address] Results This patient has no known results.
--- NOTE | 2023-04-01 19:49 | ER ---
Nurse's Notes [facility] Name: Janette Cartagena Age: 27 yrs Sex: Female : 1995 Arrival Date: 04/01/2023 Time: 17:44 Bed DIS3 Private MD: Diagnosis: Acute pharyngitis, unspecified Presentation: 04/01 18:04 Chief complaint: Patient states: Strep throat two weeks ago - took antibiotics. ld1 Reporting sore throat today. Coronavirus screen: At this time, the client does not indicate any symptoms associated with coronavirus-19. Ebola Screen: No symptoms or risks identified at this time. Initial Sepsis Screen: Does the patient meet any 2 criteria? No. Patient's initial sepsis screen is negative. Does the patient have a suspected source of infection? No. Patient's initial sepsis screen is negative. Risk Assessment: Do you want to hurt yourself or someone else? Patient reports no desire to harm self or others. Onset of symptoms was April 01, 2023 at 18:05. 18:04 Method Of Arrival: Ambulatory ld1 18:04 Acuity: MARY 4 ld1 Triage Assessment: 18:05 General: Appears in no apparent distress. comfortable, Behavior is calm, cooperative, ld1 appropriate for age. Pain: Denies pain. EENT: No signs and/or symptoms were reported regarding the EENT system. Neuro: Level of Consciousness is awake, alert, obeys commands, Oriented to person, place, time, situation. Cardiovascular: Capillary refill < 3 seconds Patient's skin is warm and dry. Respiratory: Airway is patent Respiratory effort is even, unlabored. GI: Abdomen is round non-distended. : No signs and/or symptoms were reported regarding the genitourinary system. Derm: No signs and/or symptoms reported regarding the dermatologic system. Musculoskeletal: No signs and/or symptoms reported regarding the musculoskeletal system. Historical: - Allergies: 18:05 No Known Allergies; ld1 - PMHx: 18:05 Hypothyroidism; ld1 - PSHx: 18:05 None; ld1 - Immunization history:: Adult Immunizations up to date, Client reports receiving the 2nd dose of the Covid vaccine. - Social history:: Smoking status: Patient denies any tobacco usage or history of. Patient/guardian denies using alcohol. Screenin:52 [facility] Risk Assessment (Adult) Score/Fall Risk Level 0 - 2 = Low Risk. Abuse as6 screen: Denies threats or abuse. Denies injuries from another. Nutritional screening: No deficits noted. Tuberculosis screening: No symptoms or risk factors identified. Vital Signs: 18:04 BP 129 / 80; Pulse 86; Resp 18; Temp 97.9(TE); Pulse Ox 100% on R/A; Weight 88.9 kg; ld1 Height 5 ft. 0 in. ; Pain 0/10; 19:52 Pulse 72; Resp 18 S; Pulse Ox 100% on R/A; as6 18:04 Body Mass Index 38.28 (88.90 kg, 152.4 cm) ld1 18:04 Pain Scale: Adult ld1 ED Course: 17:47 Patient arrived in ED. im 17:52 Harjinder Aiken PA is PHCP. cp 17:52 Maxime Chang MD is Attending Physician. cp 18:03 Fern Duran, RN is Primary Nurse. kc6 18:05 Triage completed. ld1 18:05 Arm band placed on right wrist. ld1 19:52 Bed in low position. Call light in reach. as6 19:52 No provider procedures requiring assistance completed. Patient did not have IV access as6 during this emergency room visit. Administered Medications: No medications were administered Medication: 19:52 VIS not applicable for this client. as6 Outcome: 19:49 Discharge ordered by MD. cp 19:52 Discharged to home ambulatory, with significant other. as6 19:52 Condition: stable 19:52 Discharge instructions given to patient, Instructed on discharge instructions, follow up and referral plans. Demonstrated understanding of instructions, follow-up care. 19:53 Patient left the ED. as6 Signatures: Harjinder Aikne PA PA cp Sims, Lauren RN RN ld1 Joaquin Joseph RN RN as6 Fern Duran RN RN kc6 Devika Rose im
--- NOTE | 2023-04-01 19:49 | EDPHYS ---
Physician Documentation [facility] Name: Janette Cartagena Age: 27 yrs Sex: Female : 1995 Arrival Date: 04/01/2023 Time: 17:44 Bed DIS3 Private MD: ED Physician Maxime Chang HPI: 04/01 18:30 This 27 yrs old Female presents to ER via Ambulatory with complaints of Flu cp Symptoms. 18:30 The patient or guardian reports cough, that is intermittent, sore throat. cp 18:30 Onset: The symptoms/episode began/occurred 2 day(s) ago. Associated signs and symptoms: cp Pertinent negatives: diarrhea, fever, nausea, vomiting. Severity of symptoms: in the emergency department the symptoms are unchanged despite home interventions. Patient reports she was treated for strep 2 weeks ago with antibiotic. Historical: - Allergies: 18:05 No Known Allergies; ld1 - PMHx: 18:05 Hypothyroidism; ld1 - PSHx: 18:05 None; ld1 - Immunization history:: Adult Immunizations up to date, Client reports receiving the 2nd dose of the Covid vaccine. - Social history:: Smoking status: Patient denies any tobacco usage or history of. Patient/guardian denies using alcohol. ROS: 18:35 Constitutional: Negative for body aches, chills, fever, poor PO intake. cp 18:35 Eyes: Negative for injury, pain, redness, and discharge. cp 18:35 ENT: Positive for sore throat, Negative for drainage from ear(s), ear pain, difficulty swallowing, difficulty handling secretions. 18:35 Cardiovascular: Negative for chest pain. 18:35 Respiratory: Positive for cough, Negative for shortness of breath, wheezing. 18:35 Abdomen/GI: Negative for abdominal pain, nausea, vomiting, diarrhea. 18:35 Skin: Negative for rash. 18:35 Neuro: Negative for dizziness, headache. 18:35 All other systems are negative. Exam: 18:40 Constitutional: The patient appears in no acute distress, alert, awake, non-toxic, well cp developed, well nourished. 18:40 Head/Face: Normocephalic, atraumatic. cp 18:40 Eyes: Periorbital structures: appear normal, Conjunctiva: normal, no exudate, no injection, Sclera: no appreciated abnormality, Lids and lashes: appear normal, bilaterally. 18:40 ENT: External ear(s): are unremarkable, Ear canal(s): are normal, clear, TM's: dullness, bilaterally, Nose: is normal, Mouth: Lips: moist, Oral mucosa: moist, Posterior pharynx: Airway: no evidence of obstruction, patent, Tonsils: no enlargement, no exudate, erythema, that is mild, exudate, is not appreciated. 18:40 Neck: ROM/movement: is normal, is supple, without pain, no range of motions limitations, no meningismus, Lymph nodes: no appreciated lymphadenopathy. 18:40 Chest/axilla: Inspection: normal. 18:40 Cardiovascular: Rate: normal, Rhythm: regular. 18:40 Respiratory: the patient does not display signs of respiratory distress, Respirations: normal, no use of accessory muscles, no retractions, labored breathing, is not present, Breath sounds: are clear throughout, no decreased breath sounds, no stridor, no wheezing. 18:40 Abdomen/GI: Exam negative for discomfort, distension, guarding, Inspection: abdomen appears normal. Vital Signs: 18:04 BP 129 / 80; Pulse 86; Resp 18; Temp 97.9(TE); Pulse Ox 100% on R/A; Weight 88.9 kg; ld1 Height 5 ft. 0 in. ; Pain 0/10; 19:52 Pulse 72; Resp 18 S; Pulse Ox 100% on R/A; as6 18:04 Body Mass Index 38.28 (88.90 kg, 152.4 cm) ld1 18:04 Pain Scale: Adult ld1 MDM: 18:06 Patient medically screened. 19:00 Differential diagnosis: bronchitis, flu, URI, strep throat. 19:48 Data reviewed: vital signs, nurses notes, lab test result(s). cp 19:48 I considered the following discharge prescriptions or medication management in the emergency department I discussed and recommended Over The Counter medications, Antibiotics: At this time antibiotics are not recommended. Counseling: I had a detailed discussion with the patient and/or guardian regarding: the historical points, exam findings, and any diagnostic results supporting the discharge/admit diagnosis, lab results, to return to the emergency department if symptoms worsen or persist or if there are any questions or concerns that arise at home. 04/01 18:17 Order name: Strep; Complete Time: 19:00 cp 04/01 19:00 Interpretation: Reviewed. 04/01 18:41 Order name: SARS-COV-2 RT PCR EDMS 04/01 18:41 Order name: Influenza Screen (A ; Complete Time: 19:30 EDMS 04/01 19:30 Interpretation: Reviewed. 04/01 18:56 Order name: Throat Culture EDMS Administered Medications: No medications were administered Disposition Summary: 04/01/23 19:49 Discharge Ordered Location: Home cp Problem: new cp Symptoms: have improved cp Condition: Stable cp Diagnosis - Acute pharyngitis, unspecified cp Followup: cp - With: Private Physician - When: 2 - 3 days - Reason: Worsening of condition Discharge Instructions: - Discharge Summary Sheet cp - Pharyngitis cp - Sore Throat cp Forms: - Medication Reconciliation Form cp - Thank You Letter cp - Antibiotic Education cp - Prescription Opioid Use cp - [employer]_Portal_Instructions_BRZ.htm cp Signatures: Dispatcher [employer] EDMS Harjinder Aiken PA PA cp Maria Dolores Palomares, RN RN ld1 Corrections: (The following items were deleted from the chart) 18:41 18:18 COVID-19/FLU A+B+MOL.LAB.BRZ ordered. EDMS EDMS
[2023-04-01 20:09] VITALS: BP 129/80; TEMP 97.9; O2SAT 100
== END 2023-04-01 19:53 | disposition home or self-care (01) ==
LOC: ER 17:44
DX: J02.9 Acute pharyngitis, unspecified (principal); Z20.822 Contact with and (suspected) exposure to COVID-19
CPT/HCPCS: 87070; 87081; 87635; 87804; 99282

== ENCOUNTER 2024-12-12 14:35 | Emergency (ER) | payer OTHER, SELFPAY ==
--- OUTSIDE RECORDS SUMMARY | 2024-12-12 14:39 | XMS REPORT | Continuity of Care Document ---
Author Name Unknown Address [address] [facility] [place] [address] [facility] [address] [facility] [place] [address] Care Team Providers Care Summer Law Clerk Name Role Phone Pcp, Patient Does Not Have A Primary Care Physic pretty SHYANN BLOOM Attending Clinician Unavailable Lab, Ang Paige Db Attending Clinician Unavailable Shyann Fuchs Attending Clinician [phone] Shyann Fuchs Attending Clinician [phone] Lab, Arnulfo Gibson Db Attending Clinician Unavailable Candida Calles Attending Clinician [phone] Unknown, Attending Attending Clinician Unavailab le CANDIDA URRUTIA Attending Clinician Unavailable UNKNOWN, ATTENDING Attending Clinician Unavailab le MARIAN ESCOBAR Attending Clinician Unavailable Marian Conn Attending Clinician [phone] Doctor Unassigned, Foreman Attending Clinician U navailable URIEL BAEZA Attending Clinician Unavailable URIEL BAEZA Attending Clinician Unavailable 2, [facility] Attending Clinician Unavailable Umu Kwong MD Attending Clinician [phone] LAZARO MARCELO Attending Clinician Unavail able Lazaro Kent Attending Clinician + JUSTINA AL Attending Clinician Unavailabl e Provider, Ang-[facility] Temp Attending Clinician Mandi vailable Justina Jose Attending Clinician [phone] SHELL CRANE Attending Clinician Unavailable Esther ARIZMENDI, Camilo Attending Clinician [phone] Abril MORENO, Rodo Mitchell Attending Clinician + [phone] Risk, Cxh-Omxhi-Ic/High Attending Clinician Unav Barbara Fried Attending Clinician [phone] BARBARA STRICKLAND Attending Clinician Unavailabl e Risk, Pea-Rmchp Provider/High Attending Clinicia n Unavailable Ultrasound, [facility] Attending Clinician Unavaillynette Kramer MD, Adam Rowe Attending Clinician + Lab, [facility]ician Unavailable Kd ARIZMENDI, Juan Muñoz Attending Clinician [phone] UMU KWONG Attending Clinician Unavailable Nichole Al DO Attending Clinician [phone] Maia RN, Christine Serrano Attending Clinician Unavailab clifton Reza, [facility] Us Room Attending Clinician Unavailab clifton Hardin MD, Nasra Long Attending Clinician [phone] Lab, [facility] Attending Clinician Unavailable Reny MSN, Rachelle Ojeda Attending Clinician [phone] Vidal ARIZMENDI, Heriberto Cobb Attending Clinician [phone] Faculty, [facility] Attending Clinician Abebe Crews MD, Tate Hall Attending Clinician [phone] SHELL CRANE Admitting Clinician Unavailable Payers Payer Name Policy Type Policy Number Effective Date Expirati on Date Source [facility] [id number] 2016 00:00:00 Problems Condition Name Condition Details Condition Category Status Onset Date Resolution Date Last Treatment Date Treating Clinician Comments Source Other general counseling and advice for contracept william management Other general counseling and advice for contracept william management Disease Active 2020-10 2- 00:00: 00 [facility] Refuses tetanus, diphtheria , and acellular pertussis (Tdap) vaccinatio n Refuses tetanus, diphtheria , and acellular pertussis (Tdap) vaccinatio n Disease Active 2020-10 0- 00:00: 00 [facility] Hypothyroi dism in Hypothyroi dism in Disease Active 3-19 00:00: 00 [facility] Obesity (BMI 30-39.9) Obesity (BMI 30-39.9) Disease Active 3-19 00:00: 00 [facility] Hypothyroi dism Hypothyroi dism Disease Active 3-19 00:00: 00 Overview: Formattin g of this note might be different from the original. ongoing taking medicatio n. [facility] Single live Single live Disease Resolve d 2020-10 1-12 00:00: 00 2021-10-02 00:00:00 2021-10-02 11:18:29 [facility] 39 weeks gestation of 39 weeks gestation of Disease Resolve d 2020-10 1-10 00:00: 00 2021-10-02 00:00:00 2021-10-02 11:18:08 [facility] Lab test positive for detection of COVID-19 virus Lab test positive for detection of COVID-19 virus Disease Resolve d 8-25 00:00: 00 2021-10-02 00:00:00 2021-10-02 11:18:12 [facility] UTI in UTI in Disease Resolve d 3-24 00:00: 00 2021-10-02 00:00:00 2021-10-02 11:18:33 [facility] Abnormal maternal glucose tolerance, antepartum Abnormal maternal glucose tolerance, antepartum Disease Resolve d 3-22 00:00: 00 2021-10-02 00:00:00 2021-10-02 11:18:09 [facility] Supervisio n of high-risk Supervisio n of high-risk Disease Resolve d 3-19 00:00: 00 2021-10-02 00:00:00 2021-10-02 11:18:30 [facility] Multiparit y Multiparit y Disease Resolve d 3-19 00:00: 00 2021-10-02 00:00:00 2021-10-02 11:18:13 [facility] (spontaneo us vaginal delivery) (spontaneo us vaginal delivery) Disease Resolve d 0 2-08 00:00: 00 2021-10-02 00:00:00 2021-10-02 11:18:31 [facility] Breast discharge Breast discharge Disease Resolve d 5-08 00:00: 00 2021-07-25 00:00:00 2021-07-25 08:51:18 [facility] Noncomplia nce w/medicati on treatment due to intermit use of medication Noncomplia nce w/medicati on treatment due to intermit use of medication Disease Resolve d 1 00:00: 00 2021-07-19 00:00:00 2021-07-19 10:58:14 [facility] Obesity (BMI 30-39.9) Obesity (BMI 30-39.9) Disease Resolve d 2-06 00:00: 00 2020-12-21 00:00:00 2020-12-21 08:42:53 [facility] 39 weeks gestation of 39 weeks gestation of Disease Resolve d 2-06 00:00: 00 2017-12-24 00:00:00 2017-12-24 14:13:24 [facility] Hypothyroi dism during in third trimester Hypothyroi dism during in third trimester Disease Resolve d 1-03 00:00: 00 2017-12-24 00:00:00 2017-12-24 14:13:28 [facility] Allergies, Adverse Reactions, Alerts Allergy Name Allergy Type Status Severity Reaction(s) Onset Date Inactive Date Treating Clinician Comments Source NO KNOWN ALLERGIE S Drug Class Active [facility] Social History Social Habit Start Date Stop Date Quantity Comments Source Gender identity [facility] Alcoholic beverage intake 2024-12-02 00:00:00 2024-12-02 00:00:00 Current non-drinker of alcohol (finding) [facility] History of Social function 2024-06-03 00:00:00 2024-06-03 00:00:00 [facility] Alcohol intake 2024-01-08 00:00:00 2024-01-08 00:00:00 Current non-drinker of alcohol (finding) [facility] Tobacco use and exposure 2023-05-26 00:00:00 2023-05-26 00:00:00 Smokeless tobacco non-user [facility] Exposure to SARS-CoV-2 (event) 2022-08-24 00:00:00 2022-09-03 14:02:00 Not sure [facility] Sex assigned at 1995 00:00:00 1995 00:00:00 [facility] Smoking Status Start Date Stop Date Source Never smoked tobacco [facility] Medications Ordered Medication Name Filled Medication Name Start Date Stop Date Current Medication? Ordering Clinician Indication Dosage Frequency Signature (SIG) Comments Components Source levothyroxi ne 175 mcg tablet - 00:00: 00 12-02 00:00 :00 Yes [id number] 175ug Take 1 tablet by mouth every morning. Oral Levothyrox ine should be taken in the morning on an empty stomach, preferably 60 minutes before food, drinks, or take other meds. The following need to be from the thyroid medication by at least 2 hours: calcium, antacids, iron, anything for stomach acid, or soy protein (i.e. soy milk or tofu). If you miss a dose, take it as soon as you remember. [facility] levothyroxi ne 175 mcg tablet 8-30 00:00: 00 12-02 00:00 :00 No [id number] 175ug Take 1 tablet by mouth every morning. [facility] LEVOTHYROXI NE 175 mcg tablet 7-02 00:00: 00 06-03 00:00 :00 No [id number] 175ug TAKE 1 TABLET BY MOUTH ONCE DAILY IN THE MORNING [facility] levothyroxi ne 175 mcg tablet 4-06 00:00: 00 04-05 00:00 :00 No [id number] 175ug Take 1 tablet by mouth every morning. [facility] cefdinir 300 mg capsule 9-02 00:00: 00 06-17 04:59 :00 No [id number] 600mg Take 2 capsules by mouth in the morning for 10 days. [facility] Nitrofurant oin&Nit. Macrocryst 100 mg capsule 05-26 00:00: 00 06-03 04:59 :00 No [id number] 100mg Take 1 capsule by mouth in the morning and 1 capsule in the evening. Do all this for 7 days. [facility] levothyroxi ne 200 mcg tablet 04-27 00:00: 00 01-08 00:00 :00 No [id number] 200ug Take 1 tablet by mouth every morning. [facility] levothyroxi ne 112 mcg tablet 02-18 00:00: 00 04-27 00:00 :00 No [id number] 224ug Take 2 tablets by mouth every morning. [facility] levothyroxi ne 112 mcg tablet 2021-10 00:00: 00 02-18 00:00 :00 No [id number] 224ug Take 2 tablets by mouth every morning. [facility] triamcinolo ne acetonide 0.1 % ointment 2020-10 00:00: 00 Yes [id number] Apply to area(s) 2 (two) times daily. [facility] qth084-yrli fum-folic () 27 mg iron- 1 mg Tab 2020-10 00:00: 00 10-02 00:00 :00 No [id number] 1{tbl} Take 1 tablet by mouth daily. [facility] docusate calcium 240 mg capsule 2020-10 00:00: 00 10-02 00:00 :00 No [id number] 240mg Take 1 capsule by mouth once daily as needed for Constipati on. [facility] ferrous sulfate 325 mg (65 mg iron) tablet 2020-10 00:00: 00 10-02 00:00 :00 No [id number] 325mg Take 1 tablet by mouth 2 (two) times daily. [facility] ibuprofen 600 mg tablet 2020-10 00:00: 00 10-02 00:00 :00 No [id number] 600mg Take 1 tablet by mouth every 6 (six) hours as needed (Pain). Take with food or milk. [facility] pantoprazol e (PROTONIX) 40 mg EC tablet 05-01 00:00: 00 10-02 00:00 :00 No [id number] 40mg Take 1 tablet by mouth daily. [facility] levothyroxi ne 125 mcg tablet 03-27 00:00: 00 09-03 00:00 :00 No [id number] 250ug Take 2 tablets by mouth every morning. [facility] Immunizations Ordered Immunization Name Filled Immunization Name Date Status Comments Source HPV9 2018-08-16 00:00:00 Completed [facility] HPV9 2018-08-16 00:00:00 Completed [facility] HPV9 2018-08-16 00:00:00 Completed [facility] HPV9 2018-08-16 00:00:00 Completed [facility] HPV9 2018-08-16 00:00:00 Completed [facility] HPV9 2018-08-16 00:00:00 Completed [facility] HPV9 2018-08-16 00:00:00 Completed [facility] HPV9 2018-08-16 00:00:00 Completed [facility] HPV9 2018-08-16 00:00:00 Completed [facility] HPV9 2018-08-16 00:00:00 Completed [facility] HPV9 2018-08-16 00:00:00 Completed [facility] HPV9 2018-08-16 00:00:00 Completed [facility] HPV9 2018-08-16 00:00:00 Completed [facility] HPV9 2017-12-22 00:00:00 Completed [facility] HPV9 2017-12-22 00:00:00 Completed [facility] HPV9 2017-12-22 00:00:00 Completed [facility] HPV9 2017-12-22 00:00:00 Completed [facility] HPV9 2017-12-22 00:00:00 Completed [facility] HPV9 2017-12-22 00:00:00 Completed [facility] HPV9 2017-12-22 00:00:00 Completed [facility] HPV9 2017-12-22 00:00:00 Completed [facility] HPV9 2017-12-22 00:00:00 Completed [facility] HPV9 2017-12-22 00:00:00 Completed [facility] HPV9 2017-12-22 00:00:00 Completed [facility] HPV9 2017-12-22 00:00:00 Completed [facility] HPV9 2017-12-22 00:00:00 Completed [facility] HPV9 2017-11-12 00:00:00 Completed [facility] HPV9 2017-11-12 00:00:00 Completed [facility] HPV9 2017-11-12 00:00:00 Completed [facility] HPV9 2017-11-12 00:00:00 Completed [facility] HPV9 2017-11-12 00:00:00 Completed [facility] HPV9 2017-11-12 00:00:00 Completed [facility] HPV9 2017-11-12 00:00:00 Completed [facility] HPV9 2017-11-12 00:00:00 Completed [facility] HPV9 2017-11-12 00:00:00 Completed [facility] HPV9 2017-11-12 00:00:00 Completed [facility] HPV9 2017-11-12 00:00:00 [facility]pleted [facility] HPV9 2017-11-12 00:00:00 [facility]pleted [facility] HPV9 2017-11-12 00:00:00 Completed [facility] HPV9 Unknown Completed [facility] HPV9 Unknown Completed [facility] HPV9 Unknown Completed [facility] HPV9 Unknown Completed [facility] HPV9 Unknown Completed [facility] HPV9 Unknown Completed [facility] HPV9 Unknown Completed [facility] Vital Signs Vital Name Observation Time Observation Value Comments S ource Systolic blood pressure 2024-12-02 16:16:00 109 mm[Hg] [facility] Diastolic blood pressure 2024-12-02 16:16:00 73 mm[Hg] [facility] Heart rate 2024-12-02 16:16:00 81 /min [facility] Body height 2024-12-02 16:16:00 152.4 cm [facility] Body weight 2024-12-02 16:16:00 88.406 kg [facility] BMI 2024-12-02 16:16:00 38.06 kg/m2 [facility] Oxygen saturation in Arterial blood by Pulse oximetry 2024-12-02 16:16:00 98 /min [facility] o [facility] Systolic blood pressure 2024-06-03 18:13:00 103 mm[Hg] [facility] Diastolic blood pressure 2024-06-03 18:13:00 65 mm[Hg] [facility] o [facility] Heart rate 2024-06-03 18:13:00 86 /min [facility] Body height 2024-06-03 18:13:00 152.4 cm [facility] Body weight 2024-06-03 18:13:00 85.821 kg [facility] BMI 2024-06-03 18:13:00 36.95 kg/m2 [facility] Oxygen saturation in Arterial blood by Pulse oximetry 2024-06-03 18:13:00 98 /min [facility] o [facility] Systolic blood pressure 2024-01-08 18:00:00 119 mm[Hg] [facility] o [facility] Diastolic blood pressure 2024-01-08 18:00:00 78 mm[Hg] [facility] Heart rate 2024-01-08 18:00:00 76 /min [facility] Body height 2024-01-08 18:00:00 152.4 cm [facility] Body weight 2024-01-08 18:00:00 88.814 kg [facility] BMI 2024-01-08 18:00:00 38.24 kg/m2 [facility] Oxygen saturation in Arterial blood by Pulse oximetry 2024-01-08 18:00:00 98 /min [facility] Systolic blood pressure 2023-07-10 20:23:00 115 mm[Hg] [facility] Diastolic blood pressure 2023-07-10 20:23:00 80 mm[Hg] [facility] Body height 2023-07-10 20:23:00 152.4 cm [facility] Body weight 2023-07-10 20:23:00 91.173 kg [facility] BMI 2023-07-10 20:23:00 39.26 kg/m2 [facility] Systolic blood pressure 2023-06-06 17:17:00 119 mm[Hg] [facility] Diastolic blood pressure 2023-06-06 17:17:00 79 mm[Hg] [facility] Heart rate 2023-06-06 17:17:00 57 /min Un[facility] Body temperature 2023-06-06 17:17:00 36.78 Krissy [facility] Respiratory rate 2023-06-06 17:17:00 16 /min [facility] Body height 2023-06-06 17:17:00 152.4 cm [facility] Body weight 2023-06-06 17:17:00 90.901 kg [facility] BMI 2023-06-06 17:17:00 39.14 kg/m2 [facility] Oxygen saturation in Arterial blood by Pulse oximetry 2023-06-06 17:17:00 98 /min [facility] Systolic blood pressure 2023-05-26 21:01:00 139 mm[Hg] [facility] Diastolic blood pressure 2023-05-26 21:01:00 81 mm[Hg] [facility] Heart rate 2023-05-26 21:01:00 93 /min [facility] Body temperature 2023-05-26 21:01:00 37.06 Krissy [facility] Respiratory rate 2023-05-26 21:01:00 18 /min [facility] Body height 2023-05-26 21:01:00 152.4 cm [facility] Body weight 2023-05-26 21:01:00 91.944 kg [facility] BMI 2023-05-26 21:01:00 39.59 kg/m2 [facility] Oxygen saturation in Arterial blood by Pulse oximetry 2023-05-26 21:01:00 99 /min [facility] Systolic blood pressure 2022-09-03 20:05:00 101 mm[Hg] [facility] Diastolic blood pressure 2022-09-03 20:05:00 70 mm[Hg] [facility] Heart rate 2022-09-03 20:05:00 81 /min Un[facility] Body weight 2022-09-03 20:05:00 88.043 kg [facility] BMI 2022-09-03 20:05:00 37.91 kg/m2 [facility] Oxygen saturation in Arterial blood by Pulse oximetry 2022-09-03 20:05:00 97 /min [facility] Systolic blood pressure 2021-10-02 16:40:00 108 mm[Hg] [facility] Diastolic blood pressure 2021-10-02 16:40:00 74 mm[Hg] [facility] Heart rate 2021-10-02 16:40:00 68 /min [facility] Body temperature 2021-10-02 16:40:00 36.17 Krissy [facility] Respiratory rate 2021-10-02 16:40:00 20 /min [facility] Body height 2021-10-02 16:40:00 152.4 cm [facility] Body weight 2021-10-02 16:40:00 87.363 kg [facility] BMI 2021-10-02 16:40:00 37.61 kg/m2 [facility] Procedures Procedure Date / Time Performed Performing Clinician Source FREE T4 2024-01-08 18:36[facility] 2024-01-08 18:36:00 Shyann Bloom [facility] POCT TEST 2023-06-06 17:59:00 Candida Urrutia [facility] POCT URINALYSIS 2023-06-06 17:55:00 Candida Urrutia [facility] POCT TEST 2023-05-26 21:20:00 Willard Escobar [facility] POCT URINALYSIS 2023-05-26 21:04:00 Marian [facility] FINANCIAL POLICY 2023-05-26 20:52:06 Doctor Unassigned, Foreman [facility] FREE T4 2023-04-02 13:16:00 Uriel Baeza [facility] THYROID STIMULATING HORMONE 2023-04-02 13:16:00 Uriel Baeza [facility] ASSIGNMENT OF BENEFITS 2022-09-03 20:03:31 Docto r Unassigned, Foreman [facility] Encounters Start Date/Time End Date/Time Encounter Type Admission Type Attending [facility] Facility Care Department Encounter ID Source 2021-08-05 17:42:48 Emergency [facility] [id number] [facility] 2024-12-02 11:00:00 2024-12-02 11:15:00 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 Lab, Ang - Shyann Jorge Lab, Ang - Mario [facility] [id number] 350.1.13.10 4.2.7.2.686 [id number] [facility] 2024-12-02 10:00:00 2024-12-02 10:42:24 Outpatient R SHYANN BLOOM [facility] [id number] [facility] 2024-12-02 10:00:00 2024-12-02 10:42:24 [facility] [id number] 350.1.13.10 4.2.7.2.686 [id number] [facility] 2024-11-27 00:00:00 2024-11-28 07:53:24 [facility] 1..840.114 350.1.13.10 4.2.7.2.686 [id number] [facility] 2024-06-03 13:00:00 2024-06-03 13:26:11 Outpatient R SHYANN BLOOM [facility] [id number] [facility] 2024-06-03 13:00:00 2024-06-03 13:26:11 Office Visit Wolf [facility] TEE?SATYA [facility] 1..840.114 350.1.13.10 4.2.7.2.686 [id number] [facility] 2024-04-05 00:00:00 2024-04-05 09:29:36 [facility] 1..840.114 350.1.13.10 4.2.7.2.686 [id number] [facility] 2024-03-18 11:30:00 2024-03-18 11:30:00 Outpatient R SHYANN BLOOM [facility] [id number] [facility] 2024-01-08 13:00:00 2024-01-08 16:27:45 Outpatient R SHYANN BLOOM [facility] [id number] [facility] 2024-01-08 13:00:00 2024-01-08 16:27:45 Office Visit Wolf [facility] 1..840.114 350.1.13.10 4.2.7.2.686 [id number] [facility] 2024-01-08 13:30:00 2024-01-08 13:34:35 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2.840.114 350.1.13.10 4.2.7.2.686 [id number] [facility] 2023-07-10 15:00:00 2023-07-10 15:00:00 Outpatient R SHYANN BLOOM [facility] [id number] [facility] 2023-06-06 12:00:00 2023-06-06 12:20:00 Urgent Care Ghada Candida Unknown, Attending [facility] OFF[facility] 1.2.840.114 350.1.13.10 4.2.7.2.686 [id number] [facility] 2023-06-06 12:00:00 2023-06-06 12:00:00 Outpatient R JOSEGAIL HONGMADELIN [facility] [id number] [facility] 2023-06-06 09:00:00 2023-06-06 09:00:00 Outpatient R UNKNOWN, ATTENDING [facility] [id number] [facility] [facility]23-[facility]-26 16:00:00 2023-05-26 16:22:31 Outpatient R MARIAN ESCOBAR [facility] [id number] [facility] 2023-05-26 16:00:00 2023-05-26 16:22:31 Urgent Care Marian Escobar Unknown, Attending [facility] BU[facility] 1.84114 350.1.13.10 4.2.7.2.686 [id number] [facility] 2023-05-26 00:00:00 2023-05-26 00:00:00 Orders Only Doctor Unassigned, Foreman [facility] 1.114 350.1.13.10 4.2.7.2.686 [id number] [facility] 2023-05-25 14:00:00 2023-05-25 14:00:00 Outpatient R [facility] [id number] [facility] 2023-04-27 00:00:00 2023-04-27 00:00:00 Patient Secure Msg Uriel Baeza [facility] 1.84114 350.1.13.10 4.2.7.2.686 [id number] [facility] 2023-04-22 00:00:00 2023-04-22 00:00:00 Patient Secure Msg Doctor Unassigned, Foreman [facility] BUILDING 1.84.114 350.1.13.10 4.2.7.2.686 [id number] [facility] 2023-04-02 09:15:00 2023-04-02 09:15:00 Outpatient R URIEL BAEZA YU [facility] [id number] [facility] 2023-04-02 09:15:00 2023-04-02 09:15:00 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 2, Adc Lab Uriel Baeza [facility] BUILDING 1.84.114 350.1.13.10 4.2.7.2.686 [id number] [facility] 2023-03-30 00:00:00 2023-03-30 00:00:00 Patient Secure Msg Doctor Unassigned, Foreman [facility] L[facility] 1..840.114 350.1.13.10 4.2.7.2.686 [id number] [facility] 2023-02-18 00:00:00 2023-02-18 00:00:00 Refill [facility]riel [facility] MED[facility] OFFICE BUILD[facility] 1.840.114 350.1.13.10 4.2.7.2.686 [id number] [facility] 2023-02-17 00:00:00 2023-02-17 00:00:00 Telephone CiaraUriel [facility] MEDICAL OFFICE BUILDING 1.840.114 350.1.13.10 4.2.7.2.686 [id number] [facility] 2023-01-05 16:00:00 2023-01-05 16:00:00 Outpatient R URIEL BAEZA YU [facility] [id number] [facility] 2023-01-05 00:00:00 2023-01-05 00:00:00 Telephone Ciara Sharma [facility] MEDICAL OFFICE BUILDING 1..840.114 350.1.13.10 4.2.7.2.686 [id number] [facility] 2022-09-03 14:00:00 2022-09-03 14:36:53 Outpatient R URIEL BAEZA YU [facility] [id number] [facility] 2022-09-03 14:00:00 2022-09-03 14:36:53 Office Visit CiaraUriel [facility] MEDICAL OFFICE BUILDING 1..840.114 350.1.13.10 4.2.7.2.686 [id number] [facility] 2022-09-03 00:00:00 2022-09-03 00:00:00 Orders Only Doctor Unassigned, Foreman [facility] 1.84.114 350.1.13.10 4.2.7.2.686 [id number] [facility] 2022-08-20 00:00:00 2022-08-20 00:00:00 Telephone Kwong, Umu [facility] BU[facility] 1.84.114 350.1.13.10 4.2.7.2.686 [id number] [facility] 2021-10-02 10:30:00 2021-10-02 11:19:30 Outpatient R LAZARO MARCELO [facility] [id number] [facility] 2021-10-02 10:30:00 2021-10-02 11:19:30 Office Visit Lazaro Marcelo [facility] ELECTRICIAN HELPER AUTOMOTIVE [facility] MATERNAL & CHILD [facility] 1.840.114 350.1.13.10 4.2.7.2.686 [id number] [facility] 2021-09-05 13:45:00 2021-09-05 14:29:29 Outpatient R JUSTINA AL [facility] [id number] [facility] 2021-09-05 13:43:40 2021-09-05 14:29:29 Routine Visit Provider, Arnulfo-Rmchp Justina Bowen [facility] ELECTRICIAN HELPER AUTOMOTIVE [facility] MATERNAL & CHILD [facility] 1..840.114 350.1.13.10 4.2.7.2.686 [id number] [facility] 2021-08-19 11:30:00 2021-08-19 11:30:00 Outpatient P [facility] [id number] [facility] 2021-08-14 09:34:00 2021-08-16 15:31:00 Inpatient P ROYCE SHELL [facility] [id number] [facility] 2021-08-14 09:34:00 2021-08-16 15:31:00 Hospital Encounter Royce [facility] 1.2.840.114 350.1.13.10 4.2.7.2.686 [id number] [facility] 2021-08-14 22:35:00 2021-08-15 08:10:00 Anesthesia Event Camilo SantanaRodo ojeda [facility] 1.2.840.114 350.1.13.10 4.2.7.2.686 [id number] [facility] 2021-08-08 13:17:44 2021-08-08 14:48:40 Routine Visit Risk, Ang-Rmchp-N p/High Barbara Strickland [facility] ELECTRICIAN HELPER AUTOMOTIVE [facility] MATERNAL & CHILD [facility] 1.2.840.114 350.1.13.10 4.2.7.2.686 [id number] [facility] 2021-08-08 13:15:00 2021-08-08 14:48:40 Outpatient R BARBARA STRICKLAND [facility] [id number] [facility] 2021-08-02 13:14:26 2021-08-02 13:58:22 Routine Visit Risk, Pea-Rmchp Provider/Hi Barbara Strickland [facility] ELECTRICIAN HELPER AUTOMOTIVE [facility] MATERNAL & CHILD [facility] 1.2.840.114 350.1.13.10 4.2.7.2.686 [id number] [facility] 2021-08-02 13:00:00 2021-08-02 13:58:22 Outpatient R BARBARA STRICKLAND [facility] [id number] [facility] 2021-07-26 00:00:00 2021-07-26 00:00:00 Telephone Justina Al [facility] ELECTRICIAN HELPER AUTOMOTIVE [facility] MATERNAL & CHILD [facility] 1.2.840.114 350.1.13.10 4.2.7.2.686 [id number] [facility] 2021-07-25 08:41:57 2021-07-25 09:11:37 Routine Visit Justina Al [facility] ELECTRICIAN HELPER AUTOMOT[facility] & CHILD [facility] 1.2.840.114 350.1.13.10 4.2.7.2.686 [id number] [facility] 2021-07-25 09:00:00 2021-07-25 09:00:00 Outpatient R JUSTINA AL [facility] [id number] [facility] 2021-07-23 11:31:17 2021-07-23 12:01:17 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 Ultrasound, Adam Moseley [facility] ELECTRICIAN HELPER AUTOMOTIVE [facility] MATERNAL & CHILD [facility] 1.2.840.114 350.1.13.10 4.2.7.2.686 [id number] [facility] 2021-07-23 11:30:00 2021-07-23 11:30:00 Outpatient P [facility] [id number] [facility] 2021-07-19 10:54:44 2021-07-19 11:09:44 Routine Visit Justina Al [facility] ELECTRICIAN HELPER AUTOMOTIVE [facility] MATERNAL & CHILD [facility] 1.2.840.114 350.1.13.10 4.2.7.2.686 [id number] [facility] 2021-07-19 11:00:00 2021-07-19 11:00:00 Outpatient R JUSTINA AL [facility] [id number] [facility] 2021-07-10 10:00:00 2021-07-10 10:00:00 Outpatient R LAZARO MARCELO [facility] [id number] [facility] 2021-06-26 15:45:00 2021-06-26 15:45:00 Outpatient R CATASAMMNEIDA LAZARO [facility] [id number] [facility] 2021-06-26 13:00:00 2021-06-26 13:00:00 Outpatient R CATASAMMNEIDA LAZARO [facility] [id number] [facility] 2021-06-25 00:00:00 2021-06-25 00:00:00 Telephone Lazaro Marcelo [facility] ELECTRICIAN HELPER AUTOMOTIVE [facility] & CHILD [facility] 1.840.114 350.1.13.10 4.2.7.2.686 [id number] [facility] 2021-06-14 08:01:57 2021-06-14 08:18:19 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 Lab, Lazaro Huizar [facility] ELECTRICIAN HELPER AUTOMOTIVE [facility] 1.840.114 350.1.13.10 4.2.7.2.686 [id number] [facility] 2021-06-14 08:01:57 2021-06-14 08:18:19 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 Lab, GraciaCarlostj PrietosammLazaro trevino [facility] ELECTRICIAN HELPER AUTOMOTIVE [facility] CHILD [facility] 1.840.114 350.1.13.10 4.2.7.2.686 [id number] [facility] 2021-06-14 08:00:00 2021-06-14 08:00:00 Outpatient R [facility] [id number] [facility] 2021-06-12 00:00:00 2021-06-12 00:00:00 Abstract CatasammLazaro trevino [facility] ELECTRICIAN HELPER AUTOMOTIVE [facility] CHILD [facility] 1.840.114 350.1.13.10 4.2.7.2.686 [id number] [facility] 2021-06-12 00:00:00 2021-06-12 00:00:00 Abstract Lazaro Marcelo [facility] ELECTRICIAN HELPER AUTOMOTIVE [facility] CHILD [facility] 1.2.840.114 350.1.13.10 4.2.7.2.686 [id number] [facility] 2021-06-11 15:42:11 2021-06-11 16:50:01 Office Visit Lazaro Marcelo [facility] ELECTRICIAN HELPER AUTOMOTIVE [facility] CHILD [facility] 1.2.840.114 350.1.13.10 4.2.7.2.686 [id number] [facility] 2021-06-11 15:42:11 2021-06-11 16:50:01 Office Visit Lazaro Marcelo [facility] ELECTRICIAN HELPER AUTOMOTIVE [facility] 1.2840.114 350.1.13.10 4.2.7.2.686 [id number] [facility] 2021-06-11 16:00:00 2021-06-11 16:00:00 Outpatient R LAZARO MARCELO [facility] [id number] [facility] 2021-06-11 15:15:20 2021-06-11 15:40:12 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 Ultrasound, Juan Schneider [facility] 1.2840.114 350.1.13.10 4.2.7.2.686 [id number] [facility] 2021-06-11 15:15:20 2021-06-11 15:40:12 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 Ultrasound, Juan Schneider [facility] ELECTRICIAN HELPER AUTOMOTIVE [facility] 1.2.840.114 350.1.13.10 4.2.7.2.686 [id number] [facility] 2021-05-29 09:00:00 2021-05-29 09:00:00 Outpatient P [facility] [id number] [facility] 2021-05-29 00:00:00 2021-05-29 00:00:00 Telephone Lazaro Marcelo [facility] ELECTRICIAN HELPER AUTOMOTIVE [facility] & CHILD [facility] 1.2840.114 350.1.13.10 4.2.7.2.686 [id number] [facility] 2021-05-29 00:00:00 2021-05-29 00:00:00 Telephone CatasammLazaro trevino [facility] ELECTRICIAN HELPER AUTOMOTIVE [facility] & CHILD [facility] 1.84.114 350.1.13.10 4.2.7.2.686 [id number] [facility] 2021-05-28 15:00:00 2021-05-28 15:00:00 Outpatient R UMU KWONG [facility] [id number] [facility] 2021-05-28 11:53:00 2021-05-28 13:04:00 Emergency Nichole Al [facility] 1.2840.114 350.1.13.10 4.2.7.2.686 [id number] [facility] 2021-05-28 11:53:00 2021-05-28 13:04:00 Emergency Nichole Al [facility] 1.2840.114 350.1.13.10 4.2.7.2.686 [id number] [facility] 2021-05-28 00:00:00 2021-05-28 00:00:00 Orders Only Doctor Unassigned, Foreman [facility] 1.2840.114 350.1.13.10 4.2.7.2.686 [id number] [facility] 2021-05-28 00:00:00 2021-05-28 00:00:00 Nurse Triage Maia, [facility] 1.2840.114 350.1.13.10 4.2.7.2.686 [id number] [facility] 2021-05-28 00:00:00 2021-05-28 00:00:00 Orders Only Doctor Unassigned, Foreman [facility] 1.2840.114 350.1.13.10 4.2.7.2.686 [id number] [facility] 2021-05-28 00:00:00 2021-05-28 00:00:00 Nurse Triage [facility] 1.2840.114 350.1.13.10 4.2.7.2.686 [id number] [facility] 2021-05-22 00:00:00 2021-05-22 00:00:00 Telephone Risk, Ang-Rmchp-N p/High [facility] ELECTRICIAN HELPER AUTOMOTIVE [facility] MATERNAL & CHILD [facility] 1.84.114 350.1.13.10 4.2.7.2.686 [id number] [facility] 2021-05-15 08:00:00 2021-05-15 08:00:00 Outpatient R [facility] [id number] [facility] 2021-05-01 10:00:17 2021-05-01 11:16:35 Routine Visit Risk, Ang-Rmchp-N p/High Barbara Strickland [facility] ELECTRICIAN HELPER AUTOMOTIVE [facility] & CHILD [facility] 1.84.114 350.1.13.10 4.2.7.2.686 [id number] [facility] 2021-05-01 10:00:17 2021-05-01 11:16:35 Routine Visit Risk, Ang-Rmchp-N p/High Barbara Strickland [facility] ELECTRICIAN HELPER AUTOMOTIVE [facility] & CHILD [facility] 1.2.840.114 350.1.13.10 4.2.7.2.686 [id number] [facility] 2021-05-01 10:00:00 2021-05-01 10:00:00 Outpatient R [facility] [id number] [facility] 2021-05-01 00:00:00 2021-05-01 00:00:00 Abstract Lazaro Marcelo [facility] ELECTRICIAN HELPER AUTOMOTIVE [facility] MATERNAL & CHILD [facility] 1..840.114 350.1.13.10 4.2.7.2.686 [id number] [facility] 2021-04-30 09:16:39 2021-04-30 10:11:40 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 1, [facility] Room Kd Juan Muñoz [facility] ELECTRICIAN HELPER AUTOMOTIVE [facility] MATERNAL & CHILD [facility] 1..840.114 350.1.13.10 4.2.7.2.686 [id number] [facility] 2021-04-30 09:15:00 2021-04-30 09:15:00 Outpatient P [facility] [id number] [facility] 2021-04-24 10:59:03 2021-04-24 11:40:06 Routine Visit Lazaro Marcelo [facility] ELECTRICIAN HELPER AUTOMOTIVE [facility] CHILD [facility] 1..840.114 350.1.13.10 4.2.7.2.686 [id number] [facility] 2021-04-24 10:45:00 2021-04-24 10:45:00 Outpatient R LAZARO MARCELO [facility] [id number] [facility] 2021-04-17 11:45:00 2021-04-17 11:45:00 Outpatient R [facility] [id number] [facility] 2021-04-01 13:00:00 2021-04-01 13:00:00 Outpatient P [facility] [id number] [facility] 2021-03-28 15:18:18 2021-03-28 16:30:10 Routine Visit , Arnulfo-Rmchp-N p/High StricklandBarbara [facility] ELECTRICIAN HELPER AUTOMOTIVE [facility] MATERNAL & CHILD [facility] 1.2840.114 350.1.13.10 4.2.7.2.686 [id number] [facility] 2021-03-28 15:30:00 2021-03-28 15:30:00 Outpatient R [facility] [id number] [facility] 2021-03-28 00:00:00 2021-03-28 00:00:00 Telephone Lazaro Marcelo [facility] ELECTRICIAN HELPER AUTOMOTIVE [facility] MATERNAL & CHILD [facility] 1.20.114 350.1.13.10 4.2.7.2.686 [id number] [facility] 2021-03-27 10:55:16 2021-03-27 12:03:38 Office Visit Umu [facility] 1..114 350.1.13.10 4.2.7.2.686 [id number] [facility] 2021-03-27 11:00:00 2021-03-27 11:00:00 Outpatient R UMU KWONG [facility] [id number] [facility] 2021-03-26 00:00:00 2021-03-26 00:00:00 Telephone Lazaro Marcelo [facility] ELECTRICIAN HELPER AUTOMOTIVE [facility] CHILD [facility] 1.20.114 350.1.13.10 4.2.7.2.686 [id number] [facility] 2021-03-25 15:43:37 2021-03-25 16:22:05 Routine Visit Lazaro Marcelo [facility] ELECTRICIAN HELPER AUTOMOTIVE [facility] & CHILD [facility] 1.20.114 350.1.13.10 4.2.7.2.686 [id number] [facility] 2021-03-25 15:45:00 2021-03-25 15:45:00 Outpatient R LAZARO MARCELO [facility] [id number] [facility] 2021-03-20 11:00:00 2021-03-20 11:00:00 Outpatient R LAZARO MARCELO [facility] [id number] [facility] 2021-02-25 00:00:00 2021-02-25 00:00:00 Telephone Lazaro Marcelo [facility] ELECTRICIAN HELPER AUTOMOTIVE [facility] CHILD [facility] 1.2840.114 350.1.13.10 4.2.7.2.686 [id number] [facility] 2021-02-20 09:11:06 2021-02-20 09:54:25 Routine Visit Lazaro Marcelo [facility] ELECTRICIAN HELPER AUTOMOTIVE [facility] MATERNAL & CHILD [facility] 1.840.114 350.1.13.10 4.2.7.2.686 [id number] [facility] 2021-02-20 09:00:00 2021-02-20 09:00:00 Outpatient R LAZARO MARCELO [facility] [id number] [facility] 2021-02-15 00:00:00 2021-02-15 00:00:00 Abstract Lazaro Marcelo [facility] ELECTRICIAN HELPER AUTOMOTIVE [facility] CHILD [facility] 1.2840.114 350.1.13.10 4.2.7.2.686 [id number] [facility] 2021-02-14 13:28:11 2021-02-14 14:13:11 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 1, [facility] Room Nasra Hardin [facility] ELECTRICIAN HELPER AUTOMOTIVE [facility] MATERNAL & CHILD [facility] 1.2840.114 350.1.13.10 4.2.7.2.686 [id number] [facility] 2021-02-14 13:28:49 2021-02-14 14:03:13 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 Lab, Rachelle Willingham [facility] ELECTRICIAN HELPER AUTOMOTIVE [facility] MATERNAL & CHILD [facility] 1.2.840.114 350.1.13.10 4.2.7.2.686 [id number] [facility] 2021-02-14 13:30:00 2021-02-14 13:30:00 Outpatient P [facility] [id number] [facility] 2021-01-26 00:00:00 2021-01-26 00:00:00 Telephone Heriberto Drake Jordyn [facility] 1.2.840.114 350.1.13.10 4.2.7.2.686 [id number] [facility] 2021-01-23 00:00:00 2021-01-23 00:00:00 Telephone Lazaro Marcelo [facility] ELECTRICIAN HELPER AUTOMOTIVE [facility] CHILD [facility] 1.2.840.114 350.1.13.10 4.2.7.2.686 [id number] [facility] 2021-01-22 12:54:41 2021-01-22 13:42:54 Routine Visit Lazaro Marcelo [facility] ELECTRICIAN HELPER AUTOMOTIVE [facility] CHILD [facility] 1.2.840.114 350.1.13.10 4.2.7.2.686 [id number] [facility] 2021-01-22 13:00:00 2021-01-22 13:00:00 Outpatient R LAZARO MARCELO [facility] [id number] [facility] 2021-01-21 07:44:17 2021-01-21 10:22:11 Telemedici ne Visit Faculty, Tate Escobar [facility] ELECTRICIAN HELPER AUTOMOTIVE [facility] MATERNAL & CHILD [facility] 1.2.840.114 350.1.13.10 4.2.7.2.686 [id number] [facility] 2021-01-21 10:00:00 2021-01-21 10:00:00 Outpatient R [facility] [id number] [facility] 2021-01-18 00:00:00 2021-01-18 00:00:00 Telephone Lazaro Marcelo [facility] ELECTRICIAN HELPER AUTOMOTIVE [facility] MATERNAL & CHILD [facility] 1.2840.114 350.1.13.10 4.2.7.2.686 [id number] [facility] 2021-01-11 00:00:00 2021-01-11 00:00:00 Abstract Lazaro Marcelo [facility] ELECTRICIAN HELPER [employer] [facility] & CHILD [facility] 1..840.114 350.1.13.10 4.2.7.2.686 [id number] [facility] 2021-01-10 15:34:19 2021-01-10 16:01:23 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 1[facility] Room Nasra Hardin [facility] ELECTRICIAN HELPER [employer]OT[employer] [facility] MATERNAL & CHILD [facility] 1.2.840.114 350.1.13.10 4.2.7.2.686 [id number] [facility] 2021-01-10 15:30:00 2021-01-10 15:30:00 Outpatient P [facility] [id number] [facility] 2020-12-28 07:59:57 2020-12-28 08:19:00 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 Lab, Lazaro Huizar [facility] ELECTRICIAN HELPER [employer] [facility] & CHILD [facility] 1.2.840.114 350.1.13.10 4.2.7.2.686 [id number] [facility] 2020-12-28 08:00:00 2020-12-28 08:00:00 Outpatient R LAZARO MARCELO [facility] [id number] [facility] 2020-12-26 00:00:00 2020-12-26 00:00:00 Telephone Lazaro Marcelo [facility] ELECTRICIAN HELPER [employer] [facility] & CHILD [facility] 1.2840.114 350.1.13.10 4.2.7.2.686 [id number] [facility] 2020-12-24 00:00:00 2020-12-24 00:00:00 Telephone Lazaro Marcelo [facility] ELECTRICIAN HELPER [employer] [facility] & CHILD [facility] 1..114 350.1.13.10 4.2.7.2.686 [id number] [facility] 2020-12-21 08:27:48 2020-12-21 09:49:43 Initial Visit Lazaro Marcelo Burak [facility] ELECTRICIAN HELPER [employer] [facility] & CHILD [facility] 1..114 350.1.13.10 4.2.7.2.686 [id number] [facility] 2020-12-21 08:30:00 2020-12-21 08:30:00 Outpatient R LAZARO MARCELO [facility] [id number] [facility] 2020-10-12 00:00:00 2020-10-12 00:00:00 Telephone Umu Kwong [facility] 1..114 350.1.13.10 4.2.7.2.686 [id number] [facility] 2020-10-03 09:34:16 2020-10-03 09:49:16 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 2, Adc Lab Umu Kwong [facility] 1..114 350.1.13.10 4.2.7.2.686 [id number] [facility] 2020-10-03 09:30:00 2020-10-03 09:30:00 Outpatient R [facility] [id number] [facility] 2020 13:14:36 2020 13:56:[address] [facility] 1.2.840.114 350.1.13.10 4.2.7.2.686 [id number] [facility] 2020 11:30:00 2020 11:30:00 Outpatient R [facility] [id number] [facility] 2020-08-01 00:00:00 2020-08-01 00:00:[address] [facility] 1.2.840.114 350.1.13.10 4.2.7.2.686 [id number] [facility] 2020-07-24 08:19:08 2020-07-24 08:34:08 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 2, Adc [facility] Building [id number] [facility] 2020-07-24 08:00:00 2020-07-24 08:00:00 Outpatient R [facility] [id number] [facility] 2020-06-26 08:30:53 2020-06-26 08:58:[address] [facility] Building [id number] [facility] 2020-06-26 08:30:00 2020-06-26 08:30:00 Outpatient R [facility] [id number] [facility] 2019-12-21 10:32:48 2019-12-21 11:01:37 Office Visit Umu Kwong [facility] Lashawn Mcgee [facility] [id number] [id number] [facility] 2019-12-21 10:30:00 2019-12-21 10:30:00 [facility] [id number] [facility] 2019-12-21 00:00:00 2019-12-21 00:00:00 Orders Only Doctor Unassigned, Foreman [facility] [id number] [id number] [id number] [facility] 2019-12-21 00:00:00 2019-12-21 00:00:00 Letter (Out) Doctor Unassigned, Foreman [facility] [id number] [id number] [id number] [id number] [facility] Results Test Description Test Time Test Comments Results Result Co mments Source [place] [address] [id number] 22:44:10* Test Item Value Reference Range Interpretation Comme nts FREE T4 (test code = 0178110485) 2.17 0.78-2.20 Lab Interpretation (test cod e = 17827-1) Normal [facility] [id number] 18:00:00* Test Item Value Reference Range Interpretation Comme nts POCT PREG (test code = 1605) Negative On board controls acceptable with C Line (test code = 3574) Yes POCT PREG LOT # (test code = 3575) POCT PREG TEST DATE (test code = 3576) MARISSA (test code = MARISSA) accurate developme nt and interpretation of all internal controls Lab Interpretation (test code = 11334-8) Normal [facility] URINALYSIS W SPECIFIC [id number] 17:59:00* Test Item Value Reference Range Interpretation Comme nts POCT U SP GRAV (test code = 3255) 1.020 mg/dl 1.005-1.025 POCT PH U (test code = 3254) 7 mg/dl 5-8 POCT U LEUK EST (test code = 3263) + Negative - Negative POCT U NIT (test code = 3262) neg Negative - Negative POCT U PROT (test code = 3259) trace Negative - Negative POCT U GLU (test code = 3256) normal Negative - Negative POCT U KETONE (test code = 3258) neg Negative - Negative POCT U UROBILI (test code = 3260) normal 0.2-1 POCT U BILI (test code = 3261) neg Negative - Negative POCT U BLD (test code = 3257) about 250 Negative - Negative POCT U COLOR (test code = 3266) yellow POCT U APPEAR (test code = 3267) clear MARISSA (test code = MARISSA) accurate developme nt and interpretation of all internal controls Lab Interpretation (test code = 74847-3) Normal [facility] [id number] 21:23:00* Test Item Value Reference Range Interpretation Comme nts POCT PREG (test code = 1605) Negative On board controls acceptable with C Line (test code = 3574) Yes POCT PREG LOT # (test code = 3575) POCT PREG TEST DATE ( test code = 3576) Lab Interpretation (test cod e = 53359-0) Normal [facility] URINALYSIS W SPECIFIC [id number] 21:05:00* Test Item Value Reference Range Interpretation Comme nts POCT U SP GRAV (test code = 3255) 1.020 mg/dl 1.005-1.025 POCT PH U (test code = 3254) 5 mg/dl 5-8 POCT U LEUK EST (test code = 3263) ++ Negative - Negative POCT U NIT (test code = 3262) Positive Negative - Negati ve POCT U PROT (test code = 3259) 500 Negative - Negative POCT U GLU (test code = 3256) Normal Negative - Negati ve POCT U KETONE (test code = 3258) Negative Negative - Negative POCT U UROBILI (test code = 3260) Normal 0.2-1 POCT U BILI (test code = 3261) Negative Negative - Negative POCT U BLD (test code = 3257) 250 Negative - Negati ve POCT U COLOR (test code = 3266) Yellow POCT U APPEAR (test code = 3267) Cloudy Lab Interpretation (test cod e = 81962-3) Abnormal [facility] Notes Date/Time Note Provider Source 2024-12-02 11:00:00 Images from the original note were not included. Venipuncture collection performed by clean technique on the left anticubitus. Total of 1 attempts were made. Slight pressure and a bandage/dressing were applied to the site(s). The patient experienced no complications. The following specimens were processed according to instructions and sent to [facility] laboratories per lab order on 12/02/2024 : LT BLUE SST 1 RED LAV PPT DK GREEN (LiHep) DK GREEN (SodH) MEDEROS DK BLUE (K2) DK BLUE (S) ACD Blood Culture NIPT/NTD [facility] SPECIALIST [facility] 2024-11-28 07:52:57 Will address at NOV Future Appointments Date Type Provider Dept 12/02/24 Appointment Shyann Bloom AGPCNP [facility] Showing future appointments within next 150 days with a meds authorizing provider and meeting all other requirements [facility]IST Nisa Martinez RN [facility] 2024-04-05 09:28:32 Refill Request: Requested Prescriptions Pending Prescriptions Disp Refills LEVOTHYROXINE 175 mcg tablet [Pharmacy Med Name: Levothyroxine Sodium 175 MCG Oral Tablet] 90 tablet 0 Sig: TAKE 1 TABLET BY MOUTH ONCE DAILY IN THE MORNING Last office visit: 01/08/2024 Last refill date: 01/09/2024 Last labs: 04/05/2024 Next appt date: Future Appointments Date Time Provider Department Center 06/03/2024 1:00 PM Shyann Bloom AGPCNP [facility] ANG DAVE BLE Refilled per ambulatory guidelines. [facility] [address] [place] [id number] Carol Torres RN [facility] 2024-01-08 13:30:00 Images from the original note were not included. Venipuncture collection performed by clean technique on the right anticubitus. Total of 1 attempts were made. Slight pressure and a bandage/dressing were applied to the site(s). The patient experienced no complications. The following specimens were processed according to instructions and sent to [facility] laboratories per lab order on 01/08/2024: LT BLUE SST 1 RED LAV PPT DK GREEN (LiHep) DK GREEN (SodH) MEDEROS DK BLUE (K2) DK BLUE (S) ACD Blood Culture NIPT/NTD [facility] 2024-01-08 13:00:00 Addended by: SHYANN FUCHS on: 01/09/2024 08:38 PM Modules accepted: Orders T [facility]
--- NOTE | 2024-12-12 15:05 | EDPHYS ---
Physician Documentation [facility] Name: Janette Cartagena Age: 29 yrs Sex: Female : 1995 Arrival Date: 12/12/2024 Time: 14:35 Bed IW7 Private MD: ED Physician Arturo Sweeney HPI: 12/12 15:02 This 29 yrs old Female presents to ER via Ambulatory with complaints of rn Abdominal Pain. 15:02 This 29 yrs old Female presents to ER via Ambulatory with complaints of rn vomiting/diarrhea. 15:02 Patient reports vomiting and diarrhea Thursday, improved yesterday and now back to rn normal today. Patient states feels normal and does not need anything other than a work note. Work would not allow her to return without a note so came here. No fever or chills. No trauma. No blood in stool or emesis. Denies .. Historical: - Allergies: 15:00 No Known Allergies; hb - Home Meds: 15:00 None [Active]; hb - PMHx: 15:00 Hypothyroidism; hb - PSHx: 15:00 None; hb - Immunization history:: Adult Immunizations up to date. - Infectious Disease History:: Denies. - Social history:: Smoking status: Patient denies any tobacco usage or history of. - Family history:: not pertinent. - Hospitalizations: : No recent hospitalization is reported. ROS: 15:02 Constitutional: Negative for fever, chills, and weight loss, Abdomen/GI: Negative for rn current abdominal pain/vomiting/diarrhea : Negative for injury, bleeding, discharge, and swelling, Neuro: Negative for headache, weakness, numbness, tingling, and seizure, Exam: 15:02 Constitutional: This is a well developed, well nourished patient who is awake, alert, rn and in no acute distress. Neuro: Awake and alert, GCS 15 Vital Signs: 14:58 BP 124 / 84; Pulse 78; Resp 16; Temp 98.5; Pulse Ox 100% ; Weight 83.91 kg; Height 5 hb ft. 0 in. ; Pain 0/10; 14:58 Body Mass Index 36.13 (83.91 kg, 152.4 cm) hb 14:58 Pain Scale: Adult hb MDM: 14:59 Medical Screening Exam initiated rn 15:02 Differential Diagnosis Viral enteritis, improved. Data reviewed: vital signs, nurses rn notes, and as a result, I will discharge patient. Special discussion: I discussed with the patient/guardian in detail that at this point there is no indication for admission to the hospital. It is understood, however, that if the symptoms persist or worsen the patient needs to return immediately for re-evaluation. Administered Medications: No medications were administered Disposition Summary: 12/12/24 15:04 Discharge Ordered Notes: Location: Home rn Problem: new rn Symptoms: have improved rn Condition: Stable rn Diagnosis - Encounter for general adult medical examination without abnormal findings rn Followup: rn - With: Private Physician - When: As needed - Reason: Recheck today's complaints, Re-evaluation by your physician Discharge Instructions: - Nausea and Vomiting, Adult rn - Health Maintenance, Female rn - Discharge Summary Sheet hb Forms: - Medication Reconciliation Form rn - Antibiotic regulatory affairs internship - Prescription Opioid Use rn - Patient Portal Instructions rn - Leadership Thank You Letter rn - Work release form hb Signatures: Arturo Sweeney MD MD rn Baxter, Heather, RN RN
--- NOTE | 2024-12-12 15:05 | ER ---
Nurse's Notes [facility] Name: Janette Cartagena Age: 29 yrs Sex: Female : 1995 Arrival Date: 12/12/2024 Time: 14:35 Bed IW7 Private MD: Diagnosis: Encounter for general adult medical examination without abnormal findings Presentation: 12/12 14:58 Chief complaint: N/V/D yesterday, feels better today. Needs work note. Coronavirus hb screen: At this time, the client does not indicate any symptoms associated with coronavirus-19. Ebola Screen: No symptoms or risks identified at this time. Initial Sepsis Screen: Does the patient meet any 2 criteria? No. Patient's initial sepsis screen is negative. Does the patient have a suspected source of infection? No. Patient's initial sepsis screen is negative. Risk Assessment: Do you want to hurt yourself or someone else? Patient reports no desire to harm self or others. Onset of symptoms was December 11, 2024. 14:58 Method Of Arrival: Ambulatory hb 14:58 Acuity: MARY 4 hb Historical: - Allergies: 15:00 No Known Allergies; hb - Home Meds: 15:00 None [Active]; hb - PMHx: 15:00 Hypothyroidism; hb - PSHx: 15:00 None; hb - Immunization history:: Adult Immunizations up to date. - Infectious Disease History:: Denies. - Social history:: Smoking status: Patient denies any tobacco usage or history of. - Family history:: not pertinent. - Hospitalizations: : No recent hospitalization is reported. Vital Signs: 14:58 BP 124 / 84; Pulse 78; Resp 16; Temp 98.5; Pulse Ox 100% ; Weight 83.91 kg; Height 5 hb ft. 0 in. ; Pain 0/10; 14:58 Body Mass Index 36.13 (83.91 kg, 152.4 cm) hb 14:58 Pain Scale: Adult hb ED Course: 14:39 Patient arrived in ED. al6 14:59 Arturo Sweeney MD is Attending Physician. rn 15:00 Triage completed. hb 15:00 Arm band placed on. hb Administered Medications: No medications were administered Outcome: 15:04 Discharge ordered by . rn 15:07 Patient left the ED. hb Signatures: Arturo Sweeney MD MD rn Baxter, Heather, RN RN Maricruz Youssef Corrections: (The following items were deleted from the chart) 15:01 14:58 Pulse 78bpm; Resp 16bpm; Pulse Ox 100%; Temp 98.5F; 83.91 kg; Height 5 ft. 0 in.; hb BMI: 36.1; Pain 0/10, Adult; hb
[2024-12-12 15:11] VITALS: BP 124/84; TEMP 98.5; O2SAT 100
== END 2024-12-12 15:07 | disposition home or self-care (01) ==
LOC: ER 14:35
DX: Z71.1 Person with feared health complaint in whom no diagnosis is made (principal)
CPT/HCPCS: 99281